=== PATIENT | male | born 1945 | race Caucasian/White ===

== ENCOUNTER 2021-11-26 20:38 | Inpatient (IN) ==
[2021-11-26] MEDS ORDERED: ONDANSETRON INJ 2 MG/ML 2 ML VIAL IV STA (23:25)
[2021-11-26] MEDS ORDERED: HYDROmorphone INJ 0.5 MG/0.5 ML SYR IV STA (23:25)
[2021-11-26] MEDS ORDERED: SODIUM CHLORIDE 0.9% 1000ML 1,000 ML IV ONE (23:25)
[2021-11-26 23:53] LABS: Basophils # (auto) 0.01 K/uL (0-0.2); Basophils % (auto) 0.1 %; Eosinophils # (auto) 0.03 K/uL (0-0.50); Eosinophils % (auto) 0.2 %; Hematocrit (blood only) 29.4 % (40.1-51.0); Hemoglobin 9.6 g/dl (14.0-18.0); Immature Granulocytes # (auto) 0.14 K/uL (0.00-0.02); Immature Granulocytes % (auto) 0.9 %; Lymphocytes # (auto) 0.97 K/uL (1.2-3.4); Lymphocytes % (auto) 6.3 %; Mean Corpuscular Hemoglobin 27.7 pg (25.0-34.0); Mean Corpuscular Hgb Conc 32.7 g/dL (32.0-36.0); Mean Corpuscular Volume 84.7 fL (80.0-100.0); Mean Platelet Volume 10.6 fL (9.4-12.4); Monocytes # (auto) 0.93 K/uL (0.24-0.82); Monocytes % (auto) 6.1 %; Neutrophils # (auto) 13.25 K/uL (1.4-6.5); Neutrophils % (auto) 86.4 %; Platelet Count 352 K/uL (130-400); RDW Coefficient of Variation 15.6 % (11.5-14.5); RDW Standard Deviation 47.1 fL (36.4-46.3); Red Blood Count 3.47 M/uL (4.63-6.08); White Blood Count 15.33 K/ul (4.8-10.8)
[2021-11-27 00:22] LABS: Albumin Globulin Ratio 1.1 (0.9-2); BUN Creatinine Ratio 40.8 (10-20); Bilirubin,Total 0.7 mg/dl (0.2-1.0); Calcium 9.4 mg/dl (8.5-10.1); Creatinine Clr Calc Pharmacy 41.8 ml/min; Est GFR (African American) 81.4 ml/min; Est GFR (Non-African American) 70.2 ml/min; Globulin 2.8 gm/dl (2.5-4.0); Potassium 4.1 mmol/L (3.5-5.1); Total Protein 5.8 gm/dl (6.0-8.3)
--- NOTE | 2021-11-27 00:27 | Emergency Department Note ---
Impression & Plan Intractable abdominal pain, Weakness generalized, Acute dehydration admitted to the [facility] ED Provider Note NAME: BRUNO ANDERSON AGE: 76 SEX: M ARRIVES VIA: Walk-In INFORMANT: Patient and his daughter ED PROVIDER(S): Taya Mccallum DO CHIEF COMPLAINT: Bone pain and abdominal pain PLAN: Disposition: Admit to the [facility] Condition: Good MEDICAL DECISION MAKING: This is a 76-year-old male patient who was recently diagnosed with metastatic cancer who presents to the emergency department with diffuse abdominal pain and bone pain that is not well controlled. The daughter is translating for the patient. She explains that she is trying to arrange for in-home care as the patient will not do well in a nursing facility or assisted living facility. 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 The patient has signs of significant dehydration is receiving IV crystalloid therapy and IV analgesia. I discussed the case with the [facility] [place] Divisionist and they will evaluate for further management and arrange for social service evaluation. Triage Nursing notes reviewed and agree with them. Additional history obtained from the patient's daughter who is translating for him Dehydration, hypoglycemia, hyperglycemia from his ER visit from just a couple nights ago. Vital Signs: reviewed and unremarkable Differential diagnosis: Intractable Pain, electrolyte abnormality, dehydration, hypoglycemia, hy perglycemia ER treatment provided: IV normal saline hydration Diagnostics interpreted by me: ECG: Normal sinus rhythm at a rate of 79 with PACs. There is no signs of ischemia. Cardiac Monitoring: Normal sinus rhythm at a rate of 72 Laboratory studies: See below HPI: 76/M arrives for evaluation of bone pain and abdominal pain. Patient was recently diagnosed with metastatic cancer and prescribed hydrocodone. The daughter explains that he has intractable pain and is unable to get comfortable or sleep. He is currently rating the pain in his abdomen as a 9/10 and pain in both of his hips as severe. Patient also had pain in the top of his left foot in phantom pain in his stump of his right leg. ROS: See above HPI for pertinent positives & negatives. A total of 10 systems reviewed and were otherwise negative. PAST MEDICAL HISTORY:See Below PAST SURGICAL HISTORY:See Below FAMILY HISTORY:See Below SOCIAL HISTORY:See Below HOME MEDICATIONS: See list ALLERGIES: See list VITALS:See Below PHYSICAL EXAMINATION: HEENT: Head - normocephalic and atraumatic Pupils are equal, round, and reactive to light. Extraocular eye muscles are intact, and sclera are anicteric. Nose - moist nasal mucosa without discharge. Mouth - extremely dry buccal mucosa. Oropharynx is nonerythematous and there is no tonsillar exudate or edema noted. Neck: Supple; no JVD or nuchal rigidity Heart: Regular rate and rhythm. There is a normal S1 and S2 with no murmurs, clicks, or gallops appreciated. Lungs: Clear to auscultation bilaterally with no wheezes, rales, or rhonchi. Abdomen: Soft, exquisitely tender to palpation in the right lower quadrant of the abdomen. There is mild guarding noted. There are no palpable pulsatile masses or hepatosplenomegaly. There is no guarding, rigidity, or rebound noted. Extremities: No evidence of cyanosis, clubbing, or edema. There are easily palpable peripheral pulses. Skin: Pale, warm and dry with poor turgor and no rashes. ED COURSE: Times/Reassessments: 2300The patient was evaluated in room B3. Previous electronic medical records were reviewed. An IV lock was initiated and labs were drawn as above. Patient was bolused with normal saline solution. He was given IV Dilaudid and IV Zofran for his pain. I discussed the case with the hospitalist and they will evaluate for further management. Taya Mccallum DO Past Med/Surg History Medical History Asthma Dizziness History of amputation of right lower extremity MDD (major depressive disorder) PAD (peripheral artery disease) Phantom pain Tobacco use disorder Surgical History History of cataract extraction with lens replacement History of cholecystectomy History of dental surgery Hx of AKA (above knee amputation) RIGHT Family History Mother Heart disease Father Cancer colon Asthma Colorectal cancer Grandmother Allergies Other No family history of adverse response to anesthesia No family history of bleeding disorder Denies family history of Hypertension Stroke Social History Smoking Status: Heavy tobacco smoker Tobacco Type: Cigarettes Cigarettes Per Day: 10; Second Hand Exposure: No; Hx Alcohol Use: No Hx Substance Use: No Preferred Language: Ethiopian Communication Ability: Effective Communication Ability Comment: patient can comprehend a few simple icelandic words. Visual Impairment: Diminished Hearing Ability: Normal Clinical Evaluator Required: Yes Beliefs That Will Affect Care: Cultural Cultural Beliefs: According to H&P information, in patient's culture, they dont speak of end of life / metastatic disease. marital status: / Current Living Situation: Alone Current Living Situation Comment: accordning to H&P, patient lives at home with family and they care for him current occupational status: retired Feels Safe at Home: Yes Assistive Devices: Walker and Wheelchair Allergies Allergies Allergy/AdvReac Type Severity Reaction Status Date / Time egg Allergy HARD TO Verified 11/27/21 02:50 BREATH honey Allergy Verified 11/27/21 10:13 nut - unspecified Allergy Verified 11/27/21 10:13 influenza virus vaccine, AdvReac Blurry Verified 10/31/21 12:48 specific vision lactose AdvReac Verified 11/27/21 16:19 Home Meds Home Medications Medication Instructions Recorded Confirmed atorvastatin 10 mg tablet 10 mg PO DAILY 06/13/21 11/27/21 calcium carb,cit ER 600 mg-vit D3 1 tab PO DAILY 06/13/21 11/27/21 12.5 mcg (500 unit) tablet,ext.rel diclofenac sodium 1 % topical gel 2 g topical QID PRN Pain 06/13/21 11/27/21 magnesium oxide 400 mg (241.3 mg 400 mg PO DAILY 06/13/21 11/27/21 magnesium) tablet metoprolol tartrate 50 mg tablet 25 mg PO BID 09/06/21 11/27/21 aspirin 81 mg tablet,delayed 81 mg PO DAILY 10/05/21 11/27/21 release cyanocobalamin (vitamin B-12) 1,000 mcg subcut .COMPLEX 10/05/21 11/27/21 1,000 mcg/mL injection kit amlodipine 5 mg tablet 5 mg PO DAILY 10/31/21 11/27/21 Previous Rx's Medication Instructions Recorded esomeprazole magnesium 40 mg 40 mg PO DAILY #90 caps 07/11/21 capsule,delayed release (Nexium) albuterol sulfate 90 mcg/actuation 2 puff inhalation Q6H PRN 08/20/21 aerosol inhaler Shortness Of Breath Or Wheezing #18 grams fluticasone fur. 100 mcg-umeclid 1 inh inhalation DAILY #60 ea 08/20/21 62.5 mcg-vilant 25 mcg inhalat.powder (Trelegy Ellipta) gabapentin 100 mg capsule 200 mg PO TID #180 caps 10/31/21 ondansetron 4 mg disintegrating 4 mg PO Q8H PRN nausea and 11/20/21 tablet vomiting #30 tabs oxycodone 7.5 mg tablet,oral ONLY 7.5 mg PO Q8H PRN pain #29 ea 11/20/21 (not for feeding tubes) Results & Data (ED) Vital Signs Vital Signs - 24 hr 11/26/21 20:50 11/26/21 22:33 11/26/21 22:30 Temperature 37 C Temperature Source Temporal Artery Scan Pulse Rate 84 80 Pulse Rate [Finger] 93 H Pulse Rate from SpO2 Sensor 80 Respiratory Rate 18 20 26 H Respiratory Effort / Characteristics Non-Labored Spontaneous Non-Labored Spontaneous Respiratory Depth Normal Normal Blood Pressure 102/57 L Blood Pressure [Right Arm] 130/70 Blood Pressure Mean 72 Blood Pressure Mean [Right Arm] 90 Pulse Oximetry 95 93 93 Oxygen Delivery Method Room Air Room Air Sepsis Recent Fever Within 48 Hours No Sepsis New/Unexplained Change in Mental Status No Sepsis Action Taken by Nursing No Action Required 11/26/21 22:40 11/26/21 22:50 11/26/21 23:00 Temperature Temperature Source Pulse Rate 83 82 80 Pulse Rate [Finger] Pulse Rate from SpO2 Sensor 84 82 81 Respiratory Rate 21 27 H 28 H Respiratory Effort / Characteristics Respiratory Depth Blood Pressure Blood Pressure [Right Arm] Blood Pressure Mean Blood Pressure Mean [Right Arm] Pulse Oximetry 95 93 94 Oxygen Delivery Method Sepsis Recent Fever Within 48 Hours Sepsis New/Unexplained Change in Mental Status Sepsis Action Taken by Nursing 11/26/21 23:10 11/26/21 23:38 11/27/21 00:00 Temperature Temperature Source Pulse Rate 79 79 Pulse Rate [Finger] Pulse Rate from SpO2 Sensor 81 Respiratory Rate 25 H 22 Respiratory Effort / Characteristics Respiratory Depth Blood Pressure 138/64 Blood Pressure [Right Arm] Blood Pressure Mean 88 Blood Pressure Mean [Right Arm] Pulse Oximetry 93 95 95 Oxygen Delivery Method Room Air Sepsis Recent Fever Within 48 Hours Sepsis New/Unexplained Change in Mental Status Sepsis Action Taken by Nursing 11/27/21 00:30 11/27/21 01:00 11/27/21 01:30 Temperature Temperature Source Pulse Rate 78 90 83 Pulse Rate [Finger] Pulse Rate from SpO2 Sensor Respiratory Rate 23 25 H 28 H Respiratory Effort / Characteristics Respiratory Depth Blood Pressure 122/82 Blood Pressure [Right Arm] Blood Pressure Mean 95 Blood Pressure Mean [Right Arm] Pulse Oximetry 94 87 L 92 Oxygen Delivery Method Sepsis Recent Fever Within 48 Hours Sepsis New/Unexplained Change in Mental Status Sepsis Action Taken by Nursing 11/27/21 02:00 Temperature Temperature Source Pulse Rate 85 Pulse Rate [Finger] Pulse Rate from SpO2 Sensor 81 Respiratory Rate 22 Respiratory Effort / Characteristics Respiratory Depth Blood Pressure Blood Pressure [Right Arm] Blood Pressure Mean Blood Pressure Mean [Right Arm] Pulse Oximetry 96 Oxygen Delivery Method Sepsis Recent Fever Within 48 Hours Sepsis New/Unexplained Change in Mental Status Sepsis Action Taken by Nursing Laboratory Data Result diagrams: 11/27/21 05:17 11/27/21 05:17 Lab Results 11/26/21 11/26/21 11/26/21 Range/Units 23:30 23:30 23:30 WBC 15.33 H (4.8-10.8) K/ul RBC 3.47 L (4.63-6.08) M/uL Hgb 9.6 L (14.0-18.0) g/dl Hct 29.4 L (40.1-51.0) % MCV 84.7 (80.0-100.0) fL MCH 27.7 (25.0-34.0) pg MCHC 32.7 (32.0-36.0) g/dL RDW Std Deviation 47.1 H (36.4-46.3) fL RDW Coeff of Cee 15.6 H (11.5-14.5) % Plt Count 352 (130-400) K/uL MPV 10.6 (9.4-12.4) fL Immature Gran % (Auto) 0.9 % Neut % (Auto) 86.4 % Lymph % (Auto) 6.3 % [place] % (Auto) 6.1 % Eos % (Auto) 0.2 % Baso % (Auto) 0.1 % Neut # (Auto) 13.25 H (1.4-6.5) K/uL Lymph # (Auto) 0.97 L (1.2-3.4) K/uL [place] # (Auto) 0.93 H (0.24-0.82) K/uL Eos # (Auto) 0.03 (0-0.50) K/uL Baso # (Auto) 0.01 (0-0.2) K/uL Immature Gran # (Auto) 0.14 H (0.00-0.02) K/uL PT (9.0-12.0) Seconds INR (0.9-1.1) APTT (21.0-31.0) Seconds PTT Ratio Sodium 135 L (136-145) mmol/L Potassium 4.1 (3.5-5.1) mmol/L Chloride 98 (98-107) mmol/L Carbon Dioxide 29 (21-32) mmol/L Anion Gap 8 (3-11) BUN 42 H (6-23) mg/dl Creatinine 1.03 (0.6-1.4) mg/dl Est Cr Clr Drug Dosing 41.8 ml/min Est GFR ( Amer) 81.4 ml/min Est GFR (Non-Af Amer) 70.2 ml/min BUN/Creatinine Ratio 40.8 H (10-20) Glucose 119 H (70-99(Fasting)) mg/dl Calcium 9.4 (8.5-10.1) mg/dl Total Bilirubin 0.7 (0.2-1.0) mg/dl AST 39 (13-39) U/L ALT 39 (7-52) U/L Alkaline Phosphatase 735 H (34-104) U/L Total Protein 5.8 L (6.0-8.3) gm/dl Albumin 3.0 L (3.4-5.0) gm/dl Globulin 2.8 (2.5-4.0) gm/dl Albumin/Globulin Ratio 1.1 (0.9-2) Procalcitonin (0-0.5) ng/ml TSH 1.829 (0.300-4.500) uIu/ml Urine Color Urine Appearance (Clear) Urine pH (4.5-7.5) Ur Specific [place] (1.000-1.030) Urine Protein (Negative) Urine Glucose (UA) (Negative) Urine Ketones (Negative) Urine Blood (Negative) Urine Nitrite (Negative) Urine Bilirubin (Negative) Urine Urobilinogen (Negative) Ur Leukocyte Esterase (Negative) SARS-CoV-2, RNA, NAAT (NEGATIVE) 11/26/21 11/26/21 11/27/21 Range/Units 23:30 23:30 00:25 WBC (4.8-10.8) K/ul RBC (4.63-6.08) M/uL Hgb (14.0-18.0) g/dl Hct (40.1-51.0) % MCV (80.0-100.0) fL MCH (25.0-34.0) pg MCHC (32.0-36.0) g/dL RDW Std Deviation (36.4-46.3) fL RDW Coeff of Cee (11.5-14.5) % Plt Count (130-400) K/uL MPV (9.4-12.4) fL Immature Gran % (Auto) % Neut % (Auto) % Lymph % (Auto) % [place] % (Auto) % Eos % (Auto) % Baso % (Auto) % Neut # (Auto) (1.4-6.5) K/uL Lymph # (Auto) (1.2-3.4) K/uL [place] # (Auto) (0.24-0.82) K/uL Eos # (Auto) (0-0.50) K/uL Baso # (Auto) (0-0.2) K/uL Immature Gran # (Auto) (0.00-0.02) K/uL PT 12.1 H (9.0-12.0) Seconds INR 1.1 (0.9-1.1) APTT 29.5 (21.0-31.0) Seconds PTT Ratio 1.1 Sodium (136-145) mmol/L Potassium (3.5-5.1) mmol/L Chloride (98-107) mmol/L Carbon Dioxide (21-32) mmol/L Anion Gap (3-11) BUN (6-23) mg/dl Creatinine (0.6-1.4) mg/dl Est Cr Clr Drug Dosing ml/min Est GFR ( Amer) ml/min Est GFR (Non-Af Amer) ml/min BUN/Creatinine Ratio (10-20) Glucose (70-99(Fasting)) mg/dl Calcium (8.5-10.1) mg/dl Total Bilirubin (0.2-1.0) mg/dl AST (13-39) U/L ALT (7-52) U/L Alkaline Phosphatase (34-104) U/L Total Protein (6.0-8.3) gm/dl Albumin (3.4-5.0) gm/dl Globulin (2.5-4.0) gm/dl Albumin/Globulin Ratio (0.9-2) Procalcitonin 0.85 H (0-0.5) ng/ml TSH (0.300-4.500) uIu/ml Urine Color Urine Appearance (Clear) Urine pH (4.5-7.5) Ur Specific [place] (1.000-1.030) Urine Protein (Negative) Urine Glucose (UA) (Negative) Urine Ketones (Negative) Urine Blood (Negative) Urine Nitrite (Negative) Urine Bilirubin (Negative) Urine Urobilinogen (Negative) Ur Leukocyte Esterase (Negative) SARS-CoV-2, RNA, NAAT NEGATIVE (NEGATIVE) 11/27/21 Range/Units 01:01 WBC (4.8-10.8) K/ul RBC (4.63-6.08) M/uL Hgb (14.0-18.0) g/dl Hct (40.1-51.0) % MCV (80.0-100.0) fL MCH (25.0-34.0) pg MCHC (32.0-36.0) g/dL RDW Std Deviation (36.4-46.3) fL RDW Coeff of Cee (11.5-14.5) % Plt Count (130-400) K/uL MPV (9.4-12.4) fL Immature Gran % (Auto) % Neut % (Auto) % Lymph % (Auto) % [place] % (Auto) % Eos % (Auto) % Baso % (Auto) % Neut # (Auto) (1.4-6.5) K/uL Lymph # (Auto) (1.2-3.4) K/uL [place] # (Auto) (0.24-0.82) K/uL Eos # (Auto) (0-0.50) K/uL Baso # (Auto) (0-0.2) K/uL Immature Gran # (Auto) (0.00-0.02) K/uL PT (9.0-12.0) Seconds INR (0.9-1.1) APTT (21.0-31.0) Seconds PTT Ratio Sodium (136-145) mmol/L Potassium (3.5-5.1) mmol/L Chloride (98-107) mmol/L Carbon Dioxide (21-32) mmol/L Anion Gap (3-11) BUN (6-23) mg/dl Creatinine (0.6-1.4) mg/dl Est Cr Clr Drug Dosing ml/min Est GFR ( Amer) ml/min Est GFR (Non-Af Amer) ml/min BUN/Creatinine Ratio (10-20) Glucose (70-99(Fasting)) mg/dl Calcium (8.5-10.1) mg/dl Total Bilirubin (0.2-1.0) mg/dl AST (13-39) U/L ALT (7-52) U/L Alkaline Phosphatase (34-104) U/L Total Protein (6.0-8.3) gm/dl Albumin (3.4-5.0) gm/dl Globulin (2.5-4.0) gm/dl Albumin/Globulin Ratio (0.9-2) Procalcitonin (0-0.5) ng/ml TSH (0.300-4.500) uIu/ml Urine Color Yellow Urine Appearance Clear (Clear) Urine pH 5.5 (4.5-7.5) Ur Specific [place] 1.022 (1.000-1.030) Urine Protein Negative (Negative) Urine Glucose (UA) Negative (Negative) Urine Ketones Negative (Negative) Urine Blood Negative (Negative) Urine Nitrite Negative (Negative) Urine Bilirubin Negative (Negative) Urine Urobilinogen Negative (Negative) Ur Leukocyte Esterase Negative (Negative) SARS-CoV-2, RNA, NAAT (NEGATIVE) Administered Medications Amlodipine Besylate (Amlodipine Besylate 5 Mg Tab) 5 mg PO DAILY KEYLA Stop: 12/27/21 08:59 Last Admin: 11/27/21 10:01 Dose: 5 mg Documented By: DARWIN Aspirin (Aspirin 81 Mg Ectab) 81 mg PO DAILY KEYLA Stop: 12/27/21 08:59 Last Admin: 11/27/21 10:00 Dose: 81 mg Documented By: DARWIN Atorvastatin Calcium (Atorvastatin 10 Mg Tab) 10 mg PO DAILY [facility] Stop: 12/27/21 08:59 Last Admin: 11/27/21 10:03 Dose: 10 mg Documented By: DARWIN Diclofenac Sodium (Diclofenac Sod 1% Gel 100 Gm Tube) 2 gm EXT QID KEYLA; Protocol Stop: 12/27/21 08:59 Last Admin: 11/27/21 20:38 Dose: 2 gm Documented By: Admin: 11/27/21 19:21 Dose: Not Given Documented By: Admin: 11/27/21 13:48 Dose: Not Given Documented By: Admin: 11/27/21 12:35 Dose: 2 gm Documented By: DARWIN Fluticasone Furoate (Fluticasone Furoate 100mcg 14 Puffs/Inhaler) 1 puffs INH DAILY KEYLA Stop: 12/27/21 08:59 Last Admin: 11/27/21 10:05 Dose: 1 puffs Documented By: DARWIN Gabapentin (Gabapentin 100 Mg Cap) 200 mg PO TID [facility] Stop: 12/27/21 08:59 Last Admin: 11/27/21 20:39 Dose: 200 mg Documented By: Admin: 11/27/21 13:45 Dose: 200 mg Documented By: Admin: 11/27/21 10:03 Dose: 200 mg Documented By: DARWIN Hydromorphone HCl (Hydromorphone Inj 0.5 Mg/0.5 Ml Syr) 0.25 mg IV Q4H PRN PRN Reason: Pain Stop: 12/11/21 04:15 Last Admin: 11/27/21 12:34 Dose: 0.25 mg Documented By: DARWIN Ketorolac Tromethamine (Ketorolac Tromethamine 10 Mg Tablet) 10 mg PO Q8H [facility] Stop: 12/02/21 05:59 Last Admin: 11/27/21 13:49 Dose: 10 mg Documented By: Admin: 11/27/21 06:00 Dose: 10 mg Documented By: LAVONNE Metoprolol Tartrate (Metoprolol Tartrate 25 Mg Tab) 25 mg PO BID [facility] Stop: 12/27/21 08:59 Last Admin: 11/27/21 20:40 Dose: 25 mg Documented By: Admin: 11/27/21 10:01 Dose: 25 mg Documented By: DARWIN Oxycodone HCl (Oxycodone Hcl Soln 5 Mg/5 Ml Udc) 7.5 mg PO Q8H KEYLA Stop: 12/11/21 05:59 Last Admin: 11/27/21 17:49 Dose: 7.5 mg Documented By: Admin: 11/27/21 05:08 Dose: 7.5 mg Documented By: LAVONNE Pantoprazole Sodium (Pantoprazole 40 Mg Tab) 40 mg PO DAILY KEYLA Stop: 12/27/21 08:59 Last Admin: 11/27/21 10:01 Dose: 40 mg Documented By: DARWIN Umeclidinium/Vilanterol (Umeclidinium/Vilanterol 62.5/25mcg 7 Puffs/Inhaler) 1 puffs INH DAILY KEYLA Stop: 12/27/21 08:59 Last Admin: 11/27/21 10:08 Dose: 1 puffs Documented By: DARWIN Discontinued Medications Hydromorphone HCl (Hydromorphone Inj 0.5 Mg/0.5 Ml Syr) 0.25 mg IV NOW STA Stop: 11/26/21 23:26 Last Admin: 11/26/21 23:36 Dose: 0.25 mg Documented By: BONNIE Hydromorphone HCl (Hydromorphone Inj 0.5 Mg/0.5 Ml Syr) 0.25 mg IV NOW STA Stop: 11/27/21 02:35 Last Admin: 11/27/21 02:55 Dose: 0.25 mg Documented By: BONNIE Sodium Chloride (Nss 1000ml) 1,000 mls @ 999 mls/hr IV .Q1H1M ONE Stop: 11/27/21 00:25 Last Infusion: 11/27/21 00:36 Dose: 0 mls/hr Documented By: Admin: 11/26/21 23:36 Dose: 999 mls/hr Documented By: BONNIE Sodium Chloride (Nss 1000ml) 1,000 mls @ 80 mls/hr IV .[id number] KEYLA Stop: 11/27/21 17:59 Last Infusion: 11/27/21 19:15 Dose: 0 mls/hr Documented By: Admin: 11/27/21 05:45 Dose: 80 mls/hr Documented By: LAVONNE Ondansetron HCl (Ondansetron Inj 2 Mg/Ml 2 Ml Vial) 4 mg IV NOW STA Stop: 11/26/21 23:26 Last Admin: 11/26/21 23:35 Dose: 4 mg Documented By: BONNIE Discharge Plan Visit Data Chief Complaint: Abdominal Pain Stated Complaint: R ABDOM PAIN, BACK PAIN, SOB, MEDS NOT HELPING ED Provider: Taya Mccallum Discharge Problem: Intractable abdominal pain, Weakness generalized, Acute dehydration Patient Disposition: Admitted As Inpatient Discharge Instructions Interventions: ED Discharge Assessment Last Done: 11/27/21 03:25
--- NOTE | 2021-11-27 01:03 | History & Physical Report ---
Date of Service November 27, 2021 Assessment & Plan (1) Intractable abdominal pain: Plan: This is a 76-year-old gentleman with a history of COPD, diabetes, peripheral arterial disease s/p AKA on the RIGHT complicated by phantom pain, left renal mass, metastatic disease who presented to [facility] for evaluation of abdominal and bone-related pain likely from metastatic cancer of unknown primary (though pulmonary highly suspected). He requires hospitalization for management of his pain and clarification of his/his family's goals of care. Intractable Pain - Suspect primarily related to metastatic disease in the liver and ribs -- this is primarily where he is reporting his pain and is reproducible on exam (notable hepatomegaly) - Current home regimen: oxycodone 7.5mg q8h PRN (though daughter reports he has trouble taking this because of his dysphagia) - Will trial the following regimen: -- Oxycodone syrup 7.5mg q8h KEYLA (patient recently switched to this by PCP - given dysphagia unclear how much he actually got down/saw benefit from) -- Toradol 10mg q8h KEYLA (optimally not to be continued over 5 days) -- Dilaudid 0.25mg IV for breakthrough pain -- Continue home gabapentin for neuropathic pain (phantom limb) ; likely could increase if needed -- Hold on scheduling APAP given unclear burden of hepatic disease at this time -- May wish to consider initiation of muscle relaxants or Valium if tolerated / not oversedated by above medications - Given complexity of his numerous types of pain, may wish to consider pain management consult if no significant improvement - Continue PPI given scheduled NSAID - Palliative care consulted, as below (2) Metastatic disease: Plan: Metastatic Disease - In the context of significant heavy tobacco use, recent weight loss, worsening pain, anorexia over the past several months - ED visit 11/20: CT-A/P demonstrated interval development of multiple hypodense lesions within the liver consistent with metastatic disease, possible early metastatic changes within the sixth and seventh ribs, 6.3 lobular hypodense lesion in the upper pole of the kidney thought to be a cyst; CTA of the chest demonstrated increase in size of pulmonary nodule within the left upper lobe, alongside multiple irregular pulmonary nodules. - New diagnosis as of 11/20 -- primary unknown, but concern for pulmonary source given numerous nodules and extensive smoking history - Given cultural considerations per patient's daughter and newspaper distributor supervisor, patient was not made aware of cancer diagnosis and metastases upon discovery (see HPI). However, daughter reported telling her father (patient) the details of his illness following my initial visit with them -- I was not present in the room while this happened. - Pain management as above - Unsure if patient would be eligible for any salvage chemotherapy options -- will depend on [id number] and risks-benefits of possible adverse effects of these RX. Not interested in radiation RX --> May wish to consider oncology consultation if patient does wish to pursue this route more; would, however, likely require biopsy - Palliative consultation as above Recommend utilizing professional newspaper distributor supervisor to clarify knowledge and understanding of the current situation, as well as goals. (3) COPD with emphysema: Plan: COPD - Secondary to prolonged and extensive tobacco use - Continue home inhalers (4) PAD (peripheral artery disease): Plan: PAD - Extensive. Status-post AKA of the RLE - Continue ASA, atorvastatin (5) Diabetes: Plan: Prediabetes / ?History of Diabetes - Review of records reveals prediabetes, A1c 6.2% in 06/2021, not on any meds - Hold on initiating ACHS glucose checks given patient's recent anorexia -- can consider starting at any time (6) Dysphagia: Plan: Dysphagia - Daughter reporting patienit has had significant difficulties with swallowing lately -- feels like food/pills are getting stuck; not as much with liquids - Speech consult initially to assess for oropharyngeal dysfunction; may require further studies / GI consult for EGD pending goals of care - Diet will be easy to chew initially - Boost shakes are ordered (7) Hepatomegaly: Plan: Hepatomegaly - Appreciated on exam, +TTP -- likely secondary to metastatic disease - CT-A/P: "Interval development of multiple hypodense lesions seen throughout the liver with the largest in the left hepatic lobe measuring 3.7 cm. This is consistent with metastatic disease." --> Comparison is CT-Chest 08/29 - Significant elevation in ALP with otherwise "normal" LFTs -- ALP may be secondary to osseous mets - Add PT/INR for further clarification of synthetic function ; previous elevations in PTT noted - Will avoid hepatotoxic medications initially (8) Goals of care, counseling/discussion: Plan: Goals of Care Discussion - Nearly 1 hour was spent at time of admission discussing patient and daughter's understanding of current disease state and [id number] going forward (see H&P HPI) - In brief: evidence of metastatic disease found on imaging 11/20/21 during ER visit -- information was given to daughter to translate to patient. This admission, however, daughter does tell me that father does not know about the cancer/burden. --> She did tell me that in their [place] culture, some people prefer not to be told about their severe illness and have it managed by others --> Daughter also told me she did end up sharing the results with him while I was out of the room; though I was not present to gauge his understanding - Patient's daughter, ALLIE, would like to pursue measures focused on promoting comfort rather than aggressive treatment. She did say upon my arrival she wanted hospice for him -- spent significant time explaining the role of hospice in patient care and what it represents in terms of someone's prognosis. However, was unable to formally hold a conversation with him to gauge his understanding and desires; this has been complicated by language barrier. - Recommend utilizing professional newspaper distributor supervisor to clarify patient's goals in AM - Palliative care consulted and appreciated - Daughter confirmed that patient is DNR/DNI and that they have discussed this - Case management consult as above (9) Weakness: Plan: Weakness - Significant weakness, anorexia, and fatigue reported by daughter over the last several weeks, in conjunction with pain - Primarily suspect that this is due to his metastatic burden and pain - Work-up otherwise: - Though no clear source of infection on my exam, leukocytosis is noted in this regard - Await BCX, add procalcitonin - Pending goals of care, may wish to consider PT/OT - Case management consulted for complex needs (10) Leukocytosis: Plan: Leukocytosis - WBC 15 on arrival predominantly with left shift -- neutrophilia but also monocytosis with relative lymphopenia - Cancer related +/- stress response? Viral infection? Bacteremia? Urine studies clean. - Await BCX, procal - Given reason for presentation being pain and aid with social sciences lecturer, weakness being secondary, opt to trend for now and await other studies prior to ABX initiation. Low threshold to initiate broad-spectrum if suspected. Plan Code: DNR/DNI Diet: Regular, easy to chew PPX: SCDs for now Dispo: MS History of Present Illness Primary Care Provider: Elia Blount MD This is a 76-year-old gentleman with a history of COPD, diabetes, peripheral arterial disease s/p AKA on the RIGHT complicated by phantom pain, left renal mass, metastatic disease who presented to [facility] for evaluation of abdominal and bone pain. He is accompanied by his daughter, who is also his newspaper distributor supervisor and POA. He speaks Fijian and has limited Omani proficiency. Daughter provides the majority of the history. She says over the last several weeks, he has had increasingly disabling pain throughout his body. When asked directly, he locates it in his neck, back, chest wall, belly (right upper quadrant), left lower ankle, and at his previous right lower extremity amputation site. The overall pain has become disabling enough where he is unable to sleep, it is interrupting his eating patterns, and overall quality of life. His daughter notes that none of this pain is acute/newrather worsening chronic. She also reports that he has been having increasing difficulty swallowing and that things will sometimes get stuck. Of note, patient recently was in the ER on 11/20 - he was reported to have not been taking any of his medications x 1 week and was also having increased back pain and phantom leg pain, plus nausea and slurred speech and anorexia; he was reportedly taking more of his Mertzon than regular, too. He had full body imaging at this time, whichon abdominal pelvis CTAdemonstrated interval development of multiple hypodense lesions within the liver consistent with metastatic disease, possible early metastatic changes within the sixth and seventh ribs, 6.3 lobular hypodense lesion in the upper pole of the kidney thought to be a cyst; CTA of the chest demonstrated increase in size of pulmonary nodule within the left upper lobe, alongside multiple irregular pulmonary nodules. His daughter explained to me that in their [place] culture, it is generally not tradition to share the information of a debilitating disease (such as metastatic cancer) to the person suffering. In this case, while the patient is aware that his overall physical status is deteriorating, discussion revealed that he had not formally been informed of the extent of his metastatic cancer (or that he had cancer in general). She does state that he repeatedly says that he does not want to be in pain and does not want to suffer. She reports that he does have capacity and understands his overall health. She does report that they have had discussions in the past and that he wants to be a DNR/DNI in a situation that ultimately results in his expiration. However, they have not formally had discussions about how to approach the current situation with his metastatic disease and worsening overall healthshe wishes to arrange hospice on discharge, but patient has not formally been introduced to this idea. She thinks this is what he would want. Unfortunately, patient's (daughter's mother) recently from cancer approximately 1 year ago; she reports that he was in denial up until shortly before her passing, and that he definitely does not want to go through something similar. She hopes that through this hospitalization, they get the resources they need to be at home and have him free of pain. Patient is a past [place] of [place] and staying at institutions like hospitals, SNFs, etc. trigger PTSD-related moods/thoughts and are very distress ful to him. Medications reviewed and include albuterol, amlodipine, aspirin, atorvastatin, calcium, vitamin B12, Voltaren gel, esomeprazole, Trelegy, gabapentin, Mertzon, magnesium oxide, metoprolol tartrate, ondansetron, oxycodone. He has an extensive smoking history, beginning at age 8 and smoking over 1 pack/day. In the ED, patient was found to be afebrile with blood pressure 102/57 but other ford normal vital signs. Admission labs demonstrates leukocytosis to 15.3 with a left shift and with monocytosis/lymphopenia, normocytic anemia 9.6 (compared to 10.3 on 11/20 and 13 on 06/18). Chemistries revealed mild hyponatremia at 135, BUN 42/creatinine 1.03, ALP 735 (from 586 on 11/20), normal TSH. He received Dilaudid and Zofran Allergies Allergy/AdvReac Type Severity Reaction Status Date / Time egg Allergy HARD TO Verified 11/27/21 02:50 BREATH honey Allergy Verified 11/27/21 10:13 nut - unspecified Allergy Verified 11/27/21 10:13 influenza virus vaccine, AdvReac Blurry Verified 10/31/21 12:48 specific vision lactose AdvReac Verified 11/27/21 16:19 Home Medications Medication Instructions Recorded Confirmed Type atorvastatin 10 mg tablet 10 mg PO DAILY 06/13/21 11/27/21 History calcium carb,cit ER 600 mg-vit D3 1 tab PO DAILY 06/13/21 11/27/21 History 12.5 mcg (500 unit) tablet,ext.rel diclofenac sodium 1 % topical gel 2 g topical QID PRN Pain 06/13/21 11/27/21 History magnesium oxide 400 mg (241.3 mg 400 mg PO DAILY 06/13/21 11/27/21 History magnesium) tablet esomeprazole magnesium 40 mg 40 mg PO DAILY #90 caps 07/11/21 11/27/21 Rx capsule,delayed release (Nexium) albuterol sulfate 90 mcg/actuation 2 puff inhalation Q6H PRN 08/20/21 11/27/21 Rx aerosol inhaler Shortness Of Breath Or Wheezing #18 grams fluticasone fur. 100 mcg-umeclid 1 inh inhalation DAILY #60 ea 08/20/21 11/27/21 Rx 62.5 mcg-vilant 25 mcg inhalat.powder (Trelegy Ellipta) metoprolol tartrate 50 mg tablet 25 mg PO BID 09/06/21 11/27/21 History aspirin 81 mg tablet,delayed 81 mg PO DAILY 10/05/21 11/27/21 History release cyanocobalamin (vitamin B-12) 1,000 mcg subcut .COMPLEX 10/05/21 11/27/21 History 1,000 mcg/mL injection kit amlodipine 5 mg tablet 5 mg PO DAILY 10/31/21 11/27/21 History gabapentin 100 mg capsule 200 mg PO TID #180 caps 10/31/21 11/27/21 Rx ondansetron 4 mg disintegrating 4 mg PO Q8H PRN nausea and 11/20/21 11/27/21 Rx tablet vomiting #30 tabs oxycodone 7.5 mg tablet,oral ONLY 7.5 mg PO Q8H PRN pain #29 ea 11/20/21 11/27/21 Rx (not for feeding tubes) Past Med/Surg History Medical History Asthma Dizziness History of amputation of right lower extremity MDD (major depressive disorder) PAD (peripheral artery disease) Phantom pain Tobacco use disorder Surgical History History of cataract extraction with lens replacement History of cholecystectomy History of dental surgery Hx of AKA (above knee amputation) RIGHT Family History Mother Heart disease Father Cancer colon Asthma Colorectal cancer Grandmother Allergies Other No family history of adverse response to anesthesia No family history of bleeding disorder Denies family history of Hypertension Stroke Social History Smoking Status: Heavy tobacco smoker Tobacco Type: Cigarettes Cigarettes Per Day: 10; Second Hand Exposure: No; Hx Alcohol Use: No Hx Substance Use: No Preferred Language: Fijian Communication Ability: Effective Communication Ability Comment: patient can comprehend a few simple beninese words. Visual Impairment: Diminished Hearing Ability: Normal City Assessor Required: Yes Beliefs That Will Affect Care: Cultural Cultural Beliefs: According to H&P information, in patient's culture, they dont speak of end of life / metastatic disease. marital status: / Current Living Situation: Alone Current Living Situation Comment: accordning to H&P, patient lives at home with family and they care for him current occupational status: retired Feels Safe at Home: Yes Assistive Devices: Walker and Wheelchair Review of Systems Review of Systems: as per HPI Physical Exam Physical Exam: General: 76-year old male who is alert, oriented; appears cachectic and chronically ill HEENT: NCAT. - Eyes - Sclera are white, anicteric, and without injection. - Mouth - dry mucous membranes - Neck - supple, no appreciable JVD Cardiac: Normal rate and regular rhythm; S1 and S2 present with no murmurs, rubs, or gallops. Pulmonary: Good respiratory effort with symmetric expansion of the chest. No use of accessory muscles. Lungs were clear to auscultation bilaterally with no crackles or wheezes. Abdominal: Normoactive bowel sounds. Abdomen was soft, nondistended; appreciable hepatomegaly associated with +TTP. Extremities: Upper and lower extremities are warm and well perfused. R-sided AKA stump appreciated - exquisitely tender to palpation (patient asked that I do not uncover or examine). No peripheral edema in the lower extremities bilaterally. LLE strength 5/5. Psych: Well-developed, well-nourished, appropriately dressed for occasion. Behavior is cooperative and appropriate. Affect is WNL. Insight is appropriate. Results & Data Results & Data ([facility]) Vital Signs (Past 12 Hours) Vital Signs Temp Pulse Pulse Resp BP BP Pulse Ox 11/27/21 00:00 79 22 138/64 95 11/26/21 23:38 95 11/26/21 23:10 79 25 H 93 11/26/21 23:00 80 28 H 94 11/26/21 22:50 82 27 H 93 11/26/21 22:40 83 21 95 11/26/21 22:30 80 26 H 93 11/26/21 22:33 93 H 20 130/70 93 11/26/21 20:50 37 C 84 18 102/57 L 95 O2 Del Method 11/27/21 00:00 11/26/21 23:38 Room Air 11/26/21 23:10 11/26/21 23:00 11/26/21 22:50 11/26/21 22:40 11/26/21 22:30 11/26/21 22:33 Room Air 11/26/21 20:50 Room Air Supervising Physician Co-Signing Physician Notes Attending addendum: I have physically seen this patient, have supervised the medical residents activities, and agree with the H&P unless as otherwise noted. Assessment and Plan: Intractable abdominal pain/metastatic disease to liver and ribs Oxycodone 7.5 mg p.o. every 8 hours as needed moderate pain used at home Placed on oxycodone syrup 7.5 mg p.o. every 8 hours as needed, to see if better tolerated with dysphagia Additional options Roxanol liquid if uncontrolled Toradol 10 mg IV every 8 hours as needed for mild pain Dilaudid 0.25 mg IV every 3 hours as needed breakthrough pain Continue gabapentin for phantom limb pain Consult palliative care Tobacco abuse disorder- Cessation counseling COPD- Continue usual home inhalers PAD/right lower extremity AKA- Continue aspirin and atorvastatin Tobacco cessation counseling Diabetes mellitus-most recent A1c was 6.2 on 06/22 Agree with holding on Accu-Cheks for now due to decreased oral intake and unlikely issues with high blood glucose, if concerns regarding low blood glucose, will institute Accu-Cheks Remaining orders and notations as noted Resident Activity Tracking Resident Involvement: Resident Care Provided Care Provided: Adult [facility] Medicine
[2021-11-27 01:22] LABS: Bilirubin Urine Negative (Negative); Blood Urine Negative (Negative); Color Urine Yellow; Glucose Urine UA Negative (Negative); Ketones Urine Negative (Negative); Leukocyte Esterase Urine Negative (Negative); Nitrite Urine Negative (Negative); Protein Urine Negative (Negative); Specific Gravity Urine 1.022 (1.000-1.030); Urobilinogen Urine Negative (Negative); pH Urine 5.5 (4.5-7.5)
[2021-11-27 01:25] LABS: Appearance Urine Clear (Clear)
[2021-11-27] MEDS ORDERED: ACETAMINOPHEN 325 MG TAB PO PRN (02:10)
[2021-11-27] MEDS ORDERED: HYDROmorphone INJ 0.5 MG/0.5 ML SYR IV STA (02:34)
[2021-11-27 03:36] LABS: INR 1.1 (0.9-1.1); Partial Thromboplastin Ratio 1.1; Partial Thromboplastin Time 29.5 Seconds (21.0-31.0); Prothrombin Time 12.1 Seconds (9.0-12.0)
[2021-11-27] MEDS ORDERED: ALBUTEROL HFA 8 GM INHALER INH PRN (04:16)
[2021-11-27] MEDS: oxyCODONE HCL SOLN 5 MG/5 ML UDC PO SCH ×3 (05:08→22:36)
[2021-11-27] MEDS ORDERED: SODIUM CHLORIDE 0.9% 1000ML 1,000 ML IV SCH (05:30)
[2021-11-27 06:00] LABS: Basophils # (auto) 0.02 K/uL (0-0.2); Basophils % (auto) 0.1 %; Eosinophils # (auto) 0.06 K/uL (0-0.50); Eosinophils % (auto) 0.4 %; Hematocrit (blood only) 32.4 % (40.1-51.0); Hemoglobin 10.6 g/dl (14.0-18.0); Immature Granulocytes % (auto) 0.7 %; Lymphocytes # (auto) 1.01 K/uL (1.2-3.4); Lymphocytes % (auto) 7.4 %; Mean Corpuscular Hemoglobin 27.6 pg (25.0-34.0); Mean Corpuscular Hgb Conc 32.7 g/dL (32.0-36.0); Mean Corpuscular Volume 84.4 fL (80.0-100.0); Mean Platelet Volume 10.7 fL (9.4-12.4); Monocytes # (auto) 0.85 K/uL (0.24-0.82); Monocytes % (auto) 6.2 %; Neutrophils % (auto) 85.2 %; Platelet Count 342 K/uL (130-400); RDW Coefficient of Variation 15.5 % (11.5-14.5); RDW Standard Deviation 46.7 fL (36.4-46.3); Red Blood Count 3.84 M/uL (4.63-6.08); White Blood Count 13.64 K/ul (4.8-10.8)
[2021-11-27] MEDS: KETOROLAC TROMETHAMINE 10 MG TABLET PO SCH ×3 (06:00→22:36)
[2021-11-27 06:15] LABS: Albumin Globulin Ratio 1.1 (0.9-2); Albumin Level 3.2 gm/dl (3.4-5.0); BUN Creatinine Ratio 38.6 (10-20); Bilirubin,Total 0.8 mg/dl (0.2-1.0); Calcium 9.3 mg/dl (8.5-10.1); Est GFR (African American) 96.7 ml/min; Est GFR (Non-African American) 83.4 ml/min; Globulin 2.9 gm/dl (2.5-4.0); Total Protein 6.1 gm/dl (6.0-8.3)
--- NOTE | 2021-11-27 07:30 | XRay Report ---
XR chest 1V portable CLINICAL HISTORY: Weakness. Metastatic disease. COMPARISON STUDY: Chest radiograph and chest CT November 20, 2021. FINDINGS: Emphysema is noted. No pneumothorax or pleural effusion is noted. No consolidation to sugge st pneumonia. Suspicious pulmonary nodules are better depicted on chest CT of November 20, 2021. Car diac size is normal. There is no evidence for pulmonary edema. Mediastinal contours are within normal limits. IMPRESSION: 1. Emphysema. 2. No consolidation to suggest pneumonia. 3. Suspicious pulmonary nodules are better depicted on chest CT November 20, 2021. ACT 112: Negative or not required by law. Electronically signed by: Clint Lugo M.D. 11/27/2021 7:28 AM
--- NOTE | 2021-11-27 07:38 | Hospitalist Progress Note ---
Date of Service November 27, 2021 Assessment & Plan (1) Intractable abdominal pain: Plan: This is a 76-year-old gentleman with a history of COPD, diabetes, peripheral arterial disease s/p AKA on the RIGHT complicated by phantom pain, left renal mass, metastatic disease who presented to [facility] for evaluation of abdominal and bone-related pain likely from metastatic cancer of unknown primary (though pulmonary highly suspected). He requires hospitalization for management of his pain and clarification of his/his family's goals of care. Intractable Pain - Suspect primarily related to metastatic disease in the liver and ribs -- this is primarily where he is reporting his pain and is reproducible on exam (notable hepatomegaly) - Current home regimen: oxycodone 7.5mg q8h PRN (though daughter reports he has trouble taking this because of his dysphagia) + Would consider trial of basal pain medication via Fentanyl transdermal patch - Current medications trialed include: -- Oxycodone syrup 7.5mg q8h KEYLA (patient recently switched to this by PCP - given dysphagia unclear how much he actually got down/saw benefit from) -- Toradol 10mg q8h KEYLA (optimally not to be continued over 5 days) -- Dilaudid 0.25mg IV for breakthrough pain -- Continue home gabapentin for neuropathic pain (phantom limb) ; likely could increase if needed -- Hold on scheduling APAP given unclear burden of hepatic disease at this t jorden -- May wish to consider initiation of muscle relaxants or Valium if tolerated / not oversedated by above medications + Per palliative care recommendation, could start dexamethasone to help decrease inflammation from liver mets/contributing to pain - Continue PPI given scheduled NSAID Metastatic Disease - In the context of significant heavy tobacco use, recent weight loss, worsening pain, anorexia over the past several months - ED visit 11/20: CT-A/P demonstrated interval development of multiple hypodense lesions within the liver consistent with metastatic disease, possible early metastatic changes within the sixth and seventh ribs, 6.3 lobular hypodense lesion in the upper pole of the kidney thought to be a cyst; CTA of the chest demonstrated increase in size of pulmonary nodule within the left upper lobe, alongside multiple irregular pulmonary nodules. - New diagnosis as of 11/20 -- primary unknown, but concern for pulmonary source given numerous nodules and extensive smoking history - Pain management as above - Unsure if patient would be eligible for any salvage chemotherapy options -- will depend on [id number] and risks-benefits of possible adverse effects of these RX. Not interested in radiation RX COPD - Secondary to prolonged and extensive tobacco use - Continue home inhalers PAD - Extensive. Status-post AKA of the RLE - Continue ASA, atorvastatin Prediabetes / ?History of Diabetes - Review of records reveals prediabetes, A1c 6.2% in 06/2021, not on any meds - Hold on initiating ACHS glucose checks given patient's recent anorexia -- can consider starting at any time Dysphagia - Daughter reporting patient has had significant difficulties with swallowing lately -- feels like food/pills are getting stuck; not as much with liquids - Speech consult completed: recommending [id number] diet with thin liquids, aspiration and GERD precautions, meds in carrier. No direct treatment at this time. - Boost shakes are ordered Hepatomegaly - Appreciated on exam, +TTP -- likely secondary to metastatic disease - CT-A/P: "Interval development of multiple hypodense lesions seen throughout the liver with the largest in the left hepatic lobe measuring 3.7 cm. This is consistent with metastatic disease." --> Comparison is CT-Chest 08/29 - Significant elevation in ALP with otherwise "normal" LFTs -- ALP may be secondary to osseous mets - PT: 12.1, INR: 1.1, aPTT: 29.5 - Will avoid hepatotoxic medications initially Goals of Care Discussion +Daughter states that in [place] culture, some people prefer not to be told about their severe illness and have it managed by others +Daughter also told me she did end up sharing the results with him - Patient's daughter, ALLIE, would like to pursue measures focused on promoting comfort rather than aggressive treatment. - Daughter confirmed that patient is DNR/DNI and that they have discussed this - Case management: see consult note for full details. In summary, patient currently lives alone and daughter would prefer he stay at home with hospice, but referral placed to SNF to possible short stay to increase strength. - Palliative Care: see consult note for full details. In summary, patient's daughter has discussed with him the concern that he has extensive cancer and when it was discussed whether he would like full treatment vs. management of his symptoms, he preferred the latter. Weakness - Significant weakness, anorexia, and fatigue reported by daughter over the last several weeks, in conjunction with pain - Primarily suspect that this is due to his metastatic burden and pain - Work-up otherwise: - Though no clear source of infection on exam, leukocytosis is noted in this regard - Blood culture pending, procal 0.85 - Pending goals of care, may wish to consider PT/OT Leukocytosis - WBC 15 on arrival (today 13.6) predominantly with left shift -- neutrophilia but also monocytosis with relative lymphopenia. - Cancer related +/- stress response? Viral infection? Bacteremia? Urine studies clean. - Blood culture pending, procal 0.85 - Given reason for presentation being pain and aid with social media senior associate, weakness being secondary, opt to trend for now and await other studies prior to ABX initiation. Low threshold to initiate broad-spectrum if suspected. Code: DNR/DNI Diet: Regular, easy to chew PPX: SCDs for now (2) Metastatic disease: (3) COPD with emphysema: (4) PAD (peripheral artery disease): (5) Diabetes: (6) Dysphagia: (7) Hepatomegaly: (8) Goals of care, counseling/discussion: (9) Weakness: (10) Leukocytosis: Admission and Anticipated Discharge Date Admission Date: November 27, 2021 Supervising Physician Co-Signing Physician Notes I personally examined the patient and verified all lemos points of history and exam, discussed case, and agree with decision making with Dr Mckenzie. Sleeping whenever I see him. Given that it appears that his pain is under better control, he was unable to converse with the interpreter translator iPad due to hearing loss, and his daughter was not present to act as a interpreter translator, allowed patient to sleep. Case discussed with palliative at length, input greatly appreciated. Will work on pain controlanticipate the need for long-acting pain medicines to complement his short acting for breakthrough. Anticipate working on a hospice set up as his social situation allows. Does appear to have severe calorie malnutrition given his low weight and low BMI, probably mild to moderate protein based on his albumin levels. Subjective Patient was seen and examined at bedside. HPI was largely unattainable due to language barrier, iPad interpreter translator service was attempted but patient did not having hearing aids and was unable to hear the interpreter translator. Patient was awake, seated upright, and eating breakfast at time of encounter. Physical Exam Constitutional: + thin and + frail appearing Neck: normal visual inspection Respiratory: normal respiratory effort; no labored breathing Gastrointestinal (Abdomen): Inspection/Auscultation: abdomen not distended Musculoskeletal: right side AKA Neurologic: awake Results & Data Results & Data ([facility]) Vital Signs (Past 12 Hours) Vital Signs Temp Pulse Pulse Resp BP BP Pulse Ox 11/27/21 04:00 36.6 C 78 20 104/50 L 11/27/21 03:00 80 23 126/58 L 94 11/27/21 02:30 79 20 94 11/27/21 02:00 85 22 96 11/27/21 01:30 83 28 H 92 11/27/21 01:00 90 25 H 122/82 87 L 11/27/21 00:30 78 23 94 11/27/21 00:00 79 22 138/64 95 11/26/21 23:38 95 11/26/21 23:10 79 25 H 93 11/26/21 23:00 80 28 H 94 11/26/21 22:50 82 27 H 93 11/26/21 22:40 83 21 95 11/26/21 22:30 80 26 H 93 11/26/21 22:33 93 H 20 130/70 93 11/26/21 20:50 37 C 84 18 102/57 L 95 O2 Del Method 11/27/21 04:00 11/27/21 03:00 11/27/21 02:30 11/27/21 02:00 11/27/21 01:30 11/27/21 01:00 11/27/21 00:30 11/27/21 00:00 11/26/21 23:38 Room Air 11/26/21 23:10 11/26/21 23:00 11/26/21 22:50 11/26/21 22:40 11/26/21 22:30 11/26/21 22:33 Room Air 11/26/21 20:50 Room Air Resident Activity Tracking Resident Involvement: Resident Care Provided Care Provided: Adult Hospital Medicine
[2021-11-27] MEDS ORDERED: NON-FORMULARY MEDICATION (Fluticasone-Umeclidin-Vilanter [Trelegy Ellipta] 100-62.5-25 mcg INH SCH (09:00)
[2021-11-27] MEDS: ASPIRIN 81 MG ECTAB PO SCH (10:00)
[2021-11-27] MEDS: METOPROLOL TARTRATE 25 MG TAB PO SCH ×2 (10:01→20:40)
[2021-11-27] MEDS: amLODIPine BESYLATE 5 MG TAB PO SCH (10:01)
[2021-11-27] MEDS: PANTOprazole 40 MG TAB PO SCH (10:01)
[2021-11-27] MEDS: GABAPENTIN 100 MG CAP PO SCH ×3 (10:03→20:39)
[2021-11-27] MEDS: ATORVASTATIN 10 MG TAB PO SCH (10:03)
[2021-11-27] MEDS: FLUTICASONE FUROATE 100MCG 14 PUFFS/INHALER INH SCH (10:05)
[2021-11-27] MEDS: UMECLIDINIUM/VILANTEROL 62.5/25MCG 7 PUFFS/INHALER INH SCH (10:08)
--- NOTE | 2021-11-27 11:51 | Palliative Care Consultation ---
Date of Consultation November 27, 2021 Assessment & Plan (1) Phantom pain: He is on gabapentin 200mg TID and had been taking opioids at home, most recently oxycodone. He may benefit from increased dose of gabapentin if he is able to tolerate it. Agree with routine oxycodone dosing as he has difficulty commu nicating that he has pain. He does have prn hydromorphone IV but has not used that as yet. His daughter has explained to him that he needs to call for a nurse and tell them that he has pain if routine medication is not adequately controlling his pain. He also has pain related to rib lesions and abdominal pain likely related to his liver mets. He notes that this has improved and he is currently getting toradol routinely. Could also consider steroid. (2) Dysphagia: Being evaluated by speech therapy. (3) Weakness: Talked with his daughter about concerns with him living independently. She lives nearby and is very involved but has additional stressors and is not able to be there rn first assistant. He will be evaluated by PT/OT. (4) Palliative care encounter: I talked extensively with Mr. Kelly's daughter as he deferred discussion to her. She has spoken with him about the concern that he has extensive cancer. Yazmin worthington was presented with option for full treatment versus a symptom management and comfort focused approach. He said that he would prefer comfort approach. This is consistent with what he has said in the past about his goals of care. Inés tells me that her mother about a year ago with lung cancer. She has seen a change in him since that time. His greatest concern is how his will aff ect his grandchildren. We talked about hospice care as best support to help him with symptom management. Inés is not able to be with him 23/09 and there is no other family in the area. We discussed the option of hiring caregivers but this is not feasible from a financial standpoint. She has applied for waiver program but has not yet had additional evaluation. She does feel that she may be able to get additional support from catholic and community. Along with case management, we also discussed the possibility of SNF placement. Inés would prefer home with hospice if he is able to be safe at home. Discussed with Dr. Phipps. History of Present Illness Reason for Consultation: goals of care Requesting Physician: Dr. Sharma Attending Physician: Marlon Phipps DO History of Present Illness 76 yo gentleman with history of COPD, diabetes, PVD s/p right AKA. He lives in an apartment with close supervision of his daughter who lives nearby. He has had decreased appetite, weight loss and progressive weakness. He has also been having difficulty swallowing per his daughter. He had been able get around his apartment with a wheelchair and walker. On admission, he had difficulty transferring from car to wheelchair. He presented with severe generalized pain. He has phantom limb pain as a result of prior amputation. He also complains of abdominal pain and bone pain. He has recently been found to have multiple hepatic lesions, presumably malignant as well as a АНДРЕЙ nodule with multiple additional lung nodules. His daughter, Inés, is his POA. Allergies Allergy/AdvReac Type Severity Reaction Status Date / Time egg Allergy HARD TO Verified 11/27/21 02:50 BREATH honey Allergy Verified 11/27/21 10:13 nut - unspecified Allergy Verified 11/27/21 10:13 influenza virus vaccine, AdvReac Blurry Verified 10/31/21 12:48 specific vision milk AdvReac Diarrhea Verified 11/27/21 02:51 Home Medications Medication Instructions Recorded Confirmed Type atorvastatin 10 mg tablet 10 mg PO DAILY 06/13/21 11/27/21 History calcium carb,cit ER 600 mg-vit D3 1 tab PO DAILY 06/13/21 11/27/21 History 12.5 mcg (500 unit) tablet,ext.rel diclofenac sodium 1 % topical gel 2 g topical QID PRN Pain 06/13/21 11/27/21 History magnesium oxide 400 mg (241.3 mg 400 mg PO DAILY 06/13/21 11/27/21 History magnesium) tablet esomeprazole magnesium 40 mg 40 mg PO DAILY #90 caps 07/11/21 11/27/21 Rx capsule,delayed release (Nexium) albuterol sulfate 90 mcg/actuation 2 puff inhalation Q6H PRN 08/20/21 11/27/21 Rx aerosol inhaler Shortness Of Breath Or Wheezing #18 grams fluticasone fur. 100 mcg-umeclid 1 inh inhalation DAILY #60 ea 08/20/21 11/27/21 Rx 62.5 mcg-vilant 25 mcg inhalat.powder (Trelegy Ellipta) metoprolol tartrate 50 mg tablet 25 mg PO BID 09/06/21 11/27/21 History aspirin 81 mg tablet,delayed 81 mg PO DAILY 10/05/21 11/27/21 History release cyanocobalamin (vitamin B-12) 1,000 mcg subcut .COMPLEX 10/05/21 11/27/21 History 1,000 mcg/mL injection kit amlodipine 5 mg tablet 5 mg PO DAILY 10/31/21 11/27/21 History gabapentin 100 mg capsule 200 mg PO TID #180 caps 10/31/21 11/27/21 Rx ondansetron 4 mg disintegrating 4 mg PO Q8H PRN nausea and 11/20/21 11/27/21 Rx tablet vomiting #30 tabs oxycodone 7.5 mg tablet,oral ONLY 7.5 mg PO Q8H PRN pain #29 ea 11/20/21 11/27/21 Rx (not for feeding tubes) Patient History Medical History Asthma Dizziness History of amputation of right lower extremity MDD (major depressive disorder) PAD (peripheral artery disease) Phantom pain Tobacco use disorder Surgical History History of cataract extraction with lens replacement History of cholecystectomy History of dental surgery Hx of AKA (above knee amputation) RIGHT Family History Mother Heart disease Father Cancer colon Asthma Colorectal cancer Grandmother Allergies Other No family history of adverse response to anesthesia No family history of bleeding disorder Denies family history of Hypertension Stroke Social History Smoking Status: Heavy tobacco smoker Tobacco Type: Cigarettes Cigarettes Per Day: 10; Second Hand Exposure: No; Hx Alcohol Use: No Hx Substance Use: No Preferred Language: Spanish Communication Ability: Impaired Communication Ability Comment: patient can comprehend a few simple palauan words. Visual Impairment: Diminished Hearing Ability: Normal Conservation Biology Professor Required: Yes Beliefs That Will Affect Care: Cultural Cultural Beliefs: According to H&P information, in patient's culture, they dont speak of end of life / metastatic disease. marital status: / Current Living Situation: Alone Current Living Situation Comment: accordning to H&P, patient lives at home with family and they care for him current occupational status: retired Feels Safe at Home: Yes Review of Systems Review of Systems: ESAS Pain 2/3 Dyspnea 0/3 Nausea 0/3 Anxiety 1/3 Drowsiness 0/3 PPS 40% Physical Exam Constitutional: + ill appearing and + thin ENMT: temporal wasting Respiratory: normal respiratory effort; no labored breathing Gastrointestinal (Abdomen): nondistended, tender RUQ Musculoskeletal: Extremities: + muscle atrophy Neurologic: awake, confused at times Results & Data ([facility]) Vital Signs (Past 12 Hours) Vital Signs Temp Pulse Pulse Resp BP BP Pulse Ox 11/27/21 07:43 97.9 F 75 18 111/62 92 11/27/21 04:00 97.9 F 78 20 104/50 L 11/27/21 03:00 80 23 126/58 L 94 11/27/21 02:30 79 20 94 11/27/21 02:00 85 22 96 11/27/21 01:30 83 28 H 92 11/27/21 01:00 90 25 H 122/82 87 L 11/27/21 00:30 78 23 94 11/27/21 00:00 79 22 138/64 95 O2 Del Method 11/27/21 07:43 Room Air 11/27/21 04:00 11/27/21 03:00 11/27/21 02:30 11/27/21 02:00 11/27/21 01:30 11/27/21 01:00 11/27/21 00:30 11/27/21 00:00 PG Care Time/CCT Total # of Minutes Spent Total Time Spent: 120 Total Time Spent with Patient: Total time spent is greater than 50% in coordination of care (as documented) at patient's floor/unit and/or counseling patient: symptom management, goals of care, hospice, patient and family education and support Coding Level of Care Code 36833 Initial Inpt Care Lvl 3 Diagnoses Phantom pain G54.6 Dysphagia R13.10 Weakness R53.1 Palliative care encounter Z51.5
[2021-11-27] MEDS: HYDROmorphone INJ 0.5 MG/0.5 ML SYR IV PRN (12:34)
[2021-11-27] MEDS: DICLOFENAC SOD 1% GEL 100 GM TUBE EXT SCH ×4 (12:35→20:38)
--- NOTE | 2021-11-27 23:01 | Electrocardiogram Report ---
Test Reason : Blood Pressure : / mmHG Vent. Rate : 079 BPM Atrial Rate : 079 BPM P-R Int : 152 ms QRS Dur : 062 ms QT Int : 404 ms P-R-T Axes : 080 -29 073 degrees QTc Int : 463 ms Sinus rhythm with Premature atrial complexes When compared with ECG of 20-NOV-2021 09:33, No significant change Confirmed by Parish Sanchez ([id number]) on 11/27/2021 11:01:07 PM Referred By: REFERRED SELF Confirmed By:Parish Sanchez
--- NOTE | 2021-11-27 23:07 | Billing Data ---
Date of Service November 27, 2021 Coding Level of Care Code 59911 Initial Inpt Care Lvl 3
[2021-11-28] MEDS: HYDROmorphone INJ 0.5 MG/0.5 ML SYR IV PRN ×2 (03:44→11:31)
[2021-11-28] MEDS: oxyCODONE HCL SOLN 5 MG/5 ML UDC PO SCH ×3 (06:03→23:09)
[2021-11-28] MEDS: KETOROLAC TROMETHAMINE 10 MG TABLET PO SCH ×3 (06:03→23:08)
--- NOTE | 2021-11-28 07:36 | Hospitalist Progress Note ---
Date of Service November 28, 2021 Assessment & Plan (1) Intractable abdominal pain: Plan: This is a 76-year-old gentleman with a history of COPD, diabetes, peripheral arterial disease s/p AKA on the RIGHT complicated by phantom pain, left renal mass, metastatic disease who presented to [facility] for evaluation of abdominal and bone-related pain likely from metastatic cancer of unknown primary (though pulmonary highly suspected). He requires hospitalization for management of his pain and clarification of his/his family's goals of care. Intractable Pain - Suspect primarily related to metastatic disease in the liver and ribs -- this is primarily where he is reporting his pain and is reproducible on exam (notable hepatomegaly) - Current home regimen: oxycodone 7.5mg q8h PRN (though daughter reports he has trouble taking this because of his dysphagia) + Would consider trial of basal pain medication via Fentanyl transdermal patch - Current medications trialed include: -- Oxycodone syrup 7.5mg q8h KEYLA (patient recently switched to this by PCP - given dysphagia unclear how much he actually got down/saw benefit from) -- Toradol 10mg q8h KEYLA (optimally not to be continued over 5 days) -- Dilaudid 0.25mg IV for breakthrough pain -- Continue home gabapentin for neuropathic pain (phantom limb) ; likely could increase if needed -- Hold on scheduling APAP given unclear burden of hepatic disease at this time -- May wish to consider initiation of muscle relaxants or Valium if tolerated / not oversedated by above medications + Per palliative care recommendation, could start dexamethasone to help decrease inflammation from liver mets/contributing to pain - Continue PPI given scheduled NSAID Metastatic Disease - In the context of significant heavy tobacco use, recent weight loss, worsening pain, anorexia over the past several months - ED visit 11/20: CT-A/P demonstrated interval development of multiple hypodense lesions within the liver consistent with metastatic disease, possible early metastatic changes within the sixth and seventh ribs, 6.3 lobular hypodense lesion in the upper pole of the kidney thought to be a cyst; CTA of the chest demonstrated increase in size of pulmonary nodule within the left upper lobe, alongside multiple irregular pulmonary nodules. - New diagnosis as of 11/20 -- primary unknown, but concern for pulmonary source given numerous nodules and extensive smoking history - Pain management as above - Unsure if patient would be eligible for any salvage chemotherapy options -- will depend on [id number] and risks-benefits of possible adverse effects of these RX. Not interested in radiation RX COPD - Secondary to prolonged and extensive tobacco use - Continue home inhalers PAD - Extensive. Status-post AKA of the RLE - Continue ASA, atorvastatin Prediabetes / ?History of Diabetes - Review of records reveals prediabetes, A1c 6.2% in 06/2021, not on any meds - Hold on initiating ACHS glucose checks given patient's recent anorexia -- can consider starting at any time Dysphagia - Daughter reporting patient has had significant difficulties with swallowing lately -- feels like food/pills are getting stuck; not as much with liquids - Speech consult completed: recommending [id number] diet with thin liquids, aspiration and GERD precautions, meds in carrier. No direct treatment at this time. - Boost shakes are ordered Hepatomegaly - Appreciated on exam, +TTP -- likely secondary to metastatic disease - CT-A/P: "Interval development of multiple hypodense lesions seen throughout the liver with the largest in the left hepatic lobe measuring 3.7 cm. This is consistent with metastatic disease." --> Comparison is CT-Chest 08/29 - Significant elevation in ALP with otherwise "normal" LFTs -- ALP may be secondary to osseous mets - PT: 12.1, INR: 1.1, aPTT: 29.5 - Will avoid hepatotoxic medications initially Goals of Care Discussion +Daughter states that in [place] culture, some people prefer not to be told about their severe illness and have it managed by others +Daughter also told me she did end up sharing the results with him - Patient's daughter, POGuillermina, would like to pursue measures focused on promoting comfort rather than aggressive treatment. - Daughter confirmed that patient is DNR/DNI and that they have discussed this - Case management: see consult note for full details. In summary, patient currently lives alone and daughter would prefer he stay at home with hospice, but referral placed to SNF to possible short stay to increase strength. - Palliative Care: see consult note for full details. In summary, patient's daughter has discussed with him the concern that he has extensive cancer and when it was discussed whether he would like full treatment vs. management of his symptoms, he preferred the latter. Weakness - Significant weakness, anorexia, and fatigue reported by daughter over the last several weeks, in conjunction with pain - Primarily suspect that this is due to his metastatic burden and pain - Work-up otherwise: - Though no clear source of infection on exam, leukocytosis is noted in this regard - Blood culture pending, procal 0.85 - Pending goals of care, may wish to consider PT/OT Leukocytosis - WBC 15 on arrival (yesterday 13.6, today 15.6) predominantly with left shift -- neutrophilia but also monocytosis with relative lymphopenia. - Cancer related +/- stress response? Viral infection? Bacteremia? Urine studies clean. - Blood culture pending, procal 0.85 - Given reason for presentation being pain and aid with social media sr strategy manager, weakness being secondary, opt to trend for now and await other studies prior to ABX initiation. Low threshold to initiate broad-spectrum if suspected. Code: DNR/DNI Diet: Regular, easy to chew PPX: SCDs for now (2) Metastatic disease: (3) COPD with emphysema: (4) PAD (peripheral artery disease): Plan: (5) Diabetes: (6) Dysphagia: (7) Hepatomegaly: (8) Goals of care, counseling/discussion: (9) Weakness: Plan: (10) Leukocytosis: Admission and Anticipated Discharge Date Admission Date: November 27, 2021 Supervising Physician Co-Signing Physician Notes I personally examined the patient and verified all lemos points of history and exam, discussed case, and agree with decision making with Dr Mckenzie. Attempted to see patient multiple times today. He was sleeping comfortably each time. Tried to find him in the time his daughter was presentbut was unable to connect. Discussed with nursing about this, but every time I went in the room he was sleeping and alone. Vitals noted, in general he is resting comfortably appearing to be in no distress. Breathing unlabored no accessory muscle use good effort. Skin shows no rashes no pallor or icterus. Neuro with no lateralizing signs at rest Intractable abdominal pain/metastatic disease to liver and ribs Appears to be doing surprisingly well on current pain regimen. We will definitely want to determine if his pain is overall controlled or if there are ups and downs that might benefit from more long-acting pain medication as basal controlbut given that he seems comfortable every time I see him today, and declined dosing of pain medications last night, I suspect for now at least he is doing reasonably well. When or if pain worsens, can definitely consider dexamethasone for hepatic metastatic stretch, and would consider a long-acting pain medicine for more of a "basal bolus" regimen. Tobacco abuse disorder COPD- Continue usual home inhalers, breathing appears comfortable on room air. PAD/right lower extremity AKA- Continue aspirin and atorvastatin Diabetes mellitus-most recent A1c was 6.2 on 06/22 Patient/family/Case management working on safe disposition options. Subjective Patient was seen and examined at bedside. iPad meterman service was utilized, interpreter and translator was utilized for verbal translation and typed translation. Patient denied any pain today. States he has been able to eat and drink without issue. He denies any trouble breathing. Review of Systems Review of Systems: As per HPI Physical Exam Constitutional: + thin and + frail appearing Neck: normal visual inspection Respiratory: normal respiratory effort; no labored breathing Gastrointestinal (Abdomen): Inspection/Auscultation: abdomen not distended Percussion/Palpation: + hepatomegaly Neurologic: awake Resident Activity Tracking Resident Involvement: Resident Care Provided Care Provided: Adult Hospital Medicine
[2021-11-28 07:47] LABS: Basophils # (auto) 0.02 K/uL (0-0.2); Basophils % (auto) 0.1 %; Eosinophils # (auto) 0.07 K/uL (0-0.50); Eosinophils % (auto) 0.4 %; Hematocrit (blood only) 26.6 % (40.1-51.0); Hemoglobin 8.6 g/dl (14.0-18.0); Immature Granulocytes # (auto) 0.16 K/uL (0.00-0.02); Lymphocytes # (auto) 0.88 K/uL (1.2-3.4); Lymphocytes % (auto) 5.6 %; Mean Corpuscular Hemoglobin 27.3 pg (25.0-34.0); Mean Corpuscular Hgb Conc 32.3 g/dL (32.0-36.0); Mean Corpuscular Volume 84.4 fL (80.0-100.0); Mean Platelet Volume 10.3 fL (9.4-12.4); Monocytes # (auto) 1.17 K/uL (0.24-0.82); Monocytes % (auto) 7.5 %; Neutrophils # (auto) 13.32 K/uL (1.4-6.5); Neutrophils % (auto) 85.4 %; Platelet Count 279 K/uL (130-400); RDW Coefficient of Variation 15.4 % (11.5-14.5); RDW Standard Deviation 46.7 fL (36.4-46.3); Red Blood Count 3.15 M/uL (4.63-6.08); White Blood Count 15.62 K/ul (4.8-10.8)
[2021-11-28 08:27] LABS: Albumin Globulin Ratio 1.2 (0.9-2); Albumin Level 2.4 gm/dl (3.4-5.0); BUN Creatinine Ratio 33.7 (10-20); Bilirubin,Total 0.7 mg/dl (0.2-1.0); Calcium 8.2 mg/dl (8.5-10.1); Est GFR (African American) 97.6 ml/min; Est GFR (Non-African American) 84.2 ml/min; Potassium 4.3 mmol/L (3.5-5.1); Total Protein 4.4 gm/dl (6.0-8.3)
[2021-11-28] MEDS: ASPIRIN 81 MG ECTAB PO SCH (10:41)
[2021-11-28] MEDS: ATORVASTATIN 10 MG TAB PO SCH (10:41)
[2021-11-28] MEDS: DICLOFENAC SOD 1% GEL 100 GM TUBE EXT SCH ×3 (10:43→21:27)
[2021-11-28] MEDS: METOPROLOL TARTRATE 25 MG TAB PO SCH ×2 (10:44→23:09)
[2021-11-28] MEDS: GABAPENTIN 100 MG CAP PO SCH ×3 (10:44→21:27)
[2021-11-28] MEDS: FLUTICASONE FUROATE 100MCG 14 PUFFS/INHALER INH SCH (10:44)
[2021-11-28] MEDS: UMECLIDINIUM/VILANTEROL 62.5/25MCG 7 PUFFS/INHALER INH SCH (10:45)
[2021-11-28] MEDS: PANTOprazole 40 MG TAB PO SCH (10:45)
[2021-11-28] MEDS: amLODIPine BESYLATE 5 MG TAB PO SCH (17:19)
--- NOTE | 2021-11-28 18:35 | Billing Data ---
Date of Service November 28, 2021 Coding Level of Care Code 84740 Subseq Hosp Care Lvl 2
[2021-11-29] MEDS: oxyCODONE HCL SOLN 5 MG/5 ML UDC PO SCH ×4 (05:39→20:03)
[2021-11-29] MEDS: KETOROLAC TROMETHAMINE 10 MG TABLET PO SCH ×4 (05:40→20:03)
--- NOTE | 2021-11-29 06:49 | Hospitalist Progress Note ---
Date of Service November 29, 2021 Assessment & Plan (1) Intractable abdominal pain: Plan: This is a 76-year-old gentleman with a history of COPD, diabetes, peripheral arterial disease s/p AKA on the right complicated by phantom pain, left renal mass, metastatic disease who presented to [facility] for evaluation of abdominal and bone-related pain likely from metastatic cancer of unknown primary (though pulmonary highly suspected). He requires hospitalization for management of his pain and clarification of his/his family's goals of care. Intractable Pain - Suspect primarily related to metastatic disease in the liver and ribs -- this is primarily where he is reporting his pain and is reproducible on exam (notable hepatomegaly) - Current home regimen: oxycodone 7.5mg q8h PRN (though daughter reports he has trouble taking this because of his dysphagia) + Would consider trial of basal pain medication via Fentanyl transdermal patch - Current medications trialed include: -- Oxycodone syrup 7.5mg q8h KEYLA (patient recently switched to this by PCP - given dysphagia unclear how much he actually got down/saw benefit from) -- Toradol 10mg q8h KEYLA (optimally not to be continued over 5 days) -- Dilaudid 0.25mg IV for breakthrough pain -- Continue home gabapentin for neuropathic pain (phantom limb) ; likely could increase if needed -- Hold on scheduling APAP given unclear burden of hepatic disease at this time -- May wish to consider initiation of muscle relaxants or Valium if tolerated / not oversedated by above medications + Per palliative care recommendation, could start dexamethasone to help decrease inflammation from liver mets/contributing to pain - Continue PPI given scheduled NSAID Metastatic Disease - In the context of significant heavy tobacco use, recent weight loss, worsening pain, anorexia over the past several months - ED visit 11/20: CT-A/P demonstrated interval development of multiple hypodense lesions within the liver consistent with metastatic disease, possible early metastatic changes within the sixth and seventh ribs, 6.3 lobular hypodense lesion in the upper pole of the kidney thought to be a cyst; CTA of the chest demonstrated increase in size of pulmonary nodule within the left upper lobe, alongside multiple irregular pulmonary nodules. - New diagnosis as of 11/20 -- primary unknown, but concern for pulmonary source given numerous nodules and extensive smoking history - Pain management as above - Unsure if patient would be eligible for any salvage chemotherapy options -- will depend on [id number] and risks-benefits of possible adverse effects of these RX. Not interested in radiation RX COPD - Secondary to prolonged and extensive tobacco use - Continue home inhalers PAD - Extensive. Status-post AKA of the RLE - Continue ASA, atorvastatin Prediabetes / ?History of Diabetes - Review of records reveals prediabetes, A1c 6.2% in 06/2021, not on any meds - Hold on initiating ACHS glucose checks given patient's recent anorexia -- can consider starting at any time Dysphagia - Daughter reporting patient has had significant difficulties with swallowing lately -- feels like food/pills are getting stuck; not as much with liquids - Speech consult completed: recommending [id number] diet with thin liquids, aspiration and GERD precautions, meds in carrier. No direct treatment at this time. - Boost shakes are ordered Hepatomegaly - Appreciated on exam, +TTP -- likely secondary to metastatic disease - CT-A/P: "Interval development of multiple hypodense lesions seen throughout the liver with the largest in the left hepatic lobe measuring 3.7 cm. This is consistent with metastatic disease." --> Comparison is CT-Chest 08/29 - Significant elevation in ALP with otherwise "normal" LFTs -- ALP may be secondary to osseous mets - PT: 12.1, INR: 1.1, aPTT: 29.5 - Will avoid hepatotoxic medications initially Goals of Care Discussion +Daughter states that in [place] culture, some people prefer not to be told about their severe illness and have it managed by others +Daughter also told me she did end up sharing the results with him - Patient's daughter, POGuillermina, would like to pursue measures focused on promoting comfort rather than aggressive treatment. - Daughter confirmed that patient is DNR/DNI and that they have discussed this - Case management: see consult note for full details. In summary, patient currently lives alone and daughter would prefer he stay at home with hospice, but referral placed to SNF to possible short stay to increase strength. - Palliative Care: see consult note for full details. In summary, patient's daughter has discussed with him the concern that he has extensive cancer and when it was discussed whether he would like full treatment vs. management of his symptoms, he preferred the latter. Weakness - Significant weakness, anorexia, and fatigue reported by daughter over the last several weeks, in conjunction with pain - Primarily suspect that this is due to his metastatic burden and pain - Work-up otherwise: - Though no clear source of infection on exam, leukocytosis is noted in this regard - Blood culture no growth at 48 hrs, procal 0.85 --> PT evaluation completed: unsafe to go home without 24/7 supervision. Recommending inpatient rehab. --> Case management: waiting to hear back from [facility] regarding acceptance. Leukocytosis - WBC 15 on arrival (today 12.99) predominantly with left shift -- neutrophilia but also monocytosis with relative lymphopenia. - Cancer related +/- stress response? Viral infection? Bacteremia? Urine studies clean. - Blood culture no growth at 48 hrs, procal 0.85 - Given reason for presentation being pain and aid with social media coordinator, weakness being secondary, opt to trend for now and await other studies prior to ABX initiation. Low threshold to initiate broad-spectrum if suspected. Code: DNR/DNI Diet: Regular, easy to chew PPX: SCDs for now (2) Metastatic disease: (3) COPD with emphysema: (4) PAD (peripheral artery disease): Plan: (5) Diabetes: (6) Dysphagia: (7) Hepatomegaly: (8) Goals of care, counseling/discussion: (9) Weakness: Plan: (10) Leukocytosis: Admission and Anticipated Discharge Date Admission Date: November 27, 2021 Supervising Physician Co-Signing Physician Notes I personally examined the patient and verified all lemos points of history and exam, discussed case, and agree with decision making with Dr Mckenzie. once again sleeping when i try to see him. dtr not present. d/w nursing - pain has been controlled. sleeping much of the day. Vitals noted, in general he is resting comfortably appearing to be in no distress. Breathing unlabored no accessory muscle use good effort. Skin shows no rashes no pallor or icterus. Neuro with no lateralizing signs at rest Intractable abdominal pain/metastatic disease to liver and ribs Appears to be doing surprisingly well on current pain regimen. We will definitely want to determine if his pain is overall controlled or if there are ups and downs that might benefit from more long-acting pain medication as basal controlbut given that he seems comfortable every time I see him today, and declined dosing of pain medications last night, I suspect for now at least he is doing reasonably well. When or if pain worsens, can definitely consider dexamethasone for hepatic metastatic stretch, and would consider a long-acting pain medicine for more of a "basal bolus" regimen. Tobacco abuse disorder COPD- Continue usual home inhalers, breathing appears comfortable on room air. PAD/right lower extremity AKA- Continue aspirin and atorvastatin Diabetes mellitus-most recent A1c was 6.2 on 06/22 Patient/family/Case management working on safe disposition options. Subjective Patient was seen and examined at bedside. Ranjan was sleeping at time of encounter. In no acute distress, appeared to be resting comfortably. Review of Systems Review of Systems: As per HPI Physical Exam Constitutional: + thin and + frail appearing Neck: normal visual inspection Respiratory: normal respiratory effort; no labored breathing Gastrointestinal (Abdomen): Inspection/Auscultation: abdomen not distended Percussion/Palpation: + hepatomegaly Results & Data Results & Data ([facility]) Vital Signs (Past 12 Hours) Vital Signs Temp Pulse Resp BP Pulse Ox O2 Del Method 11/28/21 23:53 72 109/56 L 11/28/21 21:16 36.9 C 67 18 105/42 L 93 Room Air Resident Activity Tracking Resident Involvement: Resident Care Provided Care Provided: Adult Hospital Medicine
[2021-11-29] MEDS: amLODIPine BESYLATE 5 MG TAB PO SCH ×2 (07:25→15:33)
[2021-11-29 07:46] LABS: Hematocrit (blood only) 27.3 % (40.1-51.0); Hemoglobin 8.8 g/dl (14.0-18.0); Mean Corpuscular Hemoglobin 27.2 pg (25.0-34.0); Mean Corpuscular Hgb Conc 32.2 g/dL (32.0-36.0); Mean Corpuscular Volume 84.3 fL (80.0-100.0); Mean Platelet Volume 10.6 fL (9.4-12.4); Platelet Count 247 K/uL (130-400); RDW Coefficient of Variation 15.5 % (11.5-14.5); RDW Standard Deviation 47.1 fL (36.4-46.3); Red Blood Count 3.24 M/uL (4.63-6.08); White Blood Count 12.99 K/ul (4.8-10.8)
[2021-11-29 08:12] LABS: Albumin Level 2.4 gm/dl (3.4-5.0); BUN Creatinine Ratio 25.7 (10-20); Bilirubin,Total 0.7 mg/dl (0.2-1.0); Calcium 8.3 mg/dl (8.5-10.1); Creatinine Clr Calc Pharmacy 36.6 ml/min; Est GFR (African American) 83.4 ml/min; Est GFR (Non-African American) 71.9 ml/min; Globulin 2.3 gm/dl (2.5-4.0); Potassium 4.2 mmol/L (3.5-5.1); Total Protein 4.7 gm/dl (6.0-8.3)
[2021-11-29] MEDS: FLUTICASONE FUROATE 100MCG 14 PUFFS/INHALER INH SCH (10:38)
[2021-11-29] MEDS: METOPROLOL TARTRATE 25 MG TAB PO SCH ×2 (10:38→20:02)
[2021-11-29] MEDS: UMECLIDINIUM/VILANTEROL 62.5/25MCG 7 PUFFS/INHALER INH SCH (10:39)
[2021-11-29] MEDS: ASPIRIN 81 MG ECTAB PO SCH (10:46)
[2021-11-29] MEDS: PANTOprazole 40 MG TAB PO SCH (10:46)
[2021-11-29] MEDS: ATORVASTATIN 10 MG TAB PO SCH (10:46)
[2021-11-29] MEDS: GABAPENTIN 100 MG CAP PO SCH ×4 (10:46→20:00)
[2021-11-29] MEDS: DICLOFENAC SOD 1% GEL 100 GM TUBE EXT SCH ×4 (10:47→20:04)
--- NOTE | 2021-11-29 18:09 | Billing Data ---
Date of Service November 29, 2021 Coding Level of Care Code 09357 Subseq Hosp Care Lvl 2
[2021-11-30] MEDS: KETOROLAC TROMETHAMINE 10 MG TABLET PO SCH ×3 (05:49→21:09)
[2021-11-30] MEDS: oxyCODONE HCL SOLN 5 MG/5 ML UDC PO SCH (05:50)
--- NOTE | 2021-11-30 06:43 | Hospitalist Progress Note ---
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 He requires hospitalization for management of his pain and clarification of his/his family's goals of care. Intractable Pain - Suspect primarily related to metastatic disease in the liver and ribs -- this is primarily where he is reporting his pain and is reproducible on exam (notable hepatomegaly) - Current home regimen: oxycodone 7.5mg q8h PRN (though daughter reports he has trouble taking this because of his dysphagia) - Current medications trialed include: -- Oxycodone syrup 7.5mg q8h KEYLA -- Toradol 10mg q8h KEYLA (optimally not to be continued over 5 days) -- Dilaudid 0.25mg IV for breakthrough pain -- Continue home gabapentin for neuropathic pain (phantom limb) ; likely could increase if needed -- Hold on scheduling APAP given unclear burden of hepatic disease at this time -- May wish to consider initiation of muscle relaxants or Valium if tolerated / not oversedated by above medications - Started Fentanyl transdermal patch this AM, may take 24+hrs to determine if beneficial - Per palliative care recommendation: started 8mg IV q24 dexamethasone (can adjust dose based on response) to help decrease inflammation from liver mets/contributing to pain - Continue PPI given scheduled NSAID Metastatic Disease - In the context of significant heavy tobacco use, recent weight loss, worsening pain, anorexia over the past several months - ED visit 11/20: CT-A/P demonstrated interval development of multiple hypodense lesions within the liver consistent with metastatic disease, possible early metastatic changes within the sixth and seventh ribs, 6.3 lobular hypodense lesion in the upper pole of the kidney thought to be a cyst; CTA of the chest demonstrated increase in size of pulmonary nodule within the left upper lobe, alongside multiple irregular pulmonary nodules. - New diagnosis as of 11/20 -- primary unknown, but concern for pulmonary source given numerous nodules and extensive smoking history - Pain management as above - Unsure if patient would be eligible for any salvage chemotherapy options -- will depend on [id number] and risks-benefits of possible adverse effects of these RX. Not interested in radiation RX COPD - Secondary to prolonged and extensive tobacco use - Continue home inhalers - Required 2L NC O2 this morning due to O2 sat at 84%, currently satting 91% on room air PAD - Extensive. Status-post AKA of the RLE - Continue ASA, atorvastatin Prediabetes / ?History of Diabetes - Review of records reveals prediabetes, A1c 6.2% in 06/2021, not on any meds - Hold on initiating ACHS glucose checks given patient's recent anorexia -- can consider starting at any time Dysphagia - Daughter reporting patient has had significant difficulties with swallowing lately -- feels like food/pills are getting stuck; not as much with liquids - Speech consult completed: recommending [id number] diet with thin liquids, aspiration and GERD precautions, meds in carrier. No direct treatment at this time. - Boost shakes are ordered Hepatomegaly - Appreciated on exam, +TTP -- likely secondary to metastatic disease - CT-A/P: "Interval development of multiple hypodense lesions seen throughout the liver with the largest in the left hepatic lobe measuring 3.7 cm. This is consistent with metastatic disease." --> Comparison is CT-Chest 08/29 - Significant elevation in ALP with otherwise "normal" LFTs -- ALP may be secondary to osseous mets - PT: 12.1, INR: 1.1, aPTT: 29.5 - Will avoid hepatotoxic medications initially Goals of Care Discussion +Daughter states that in [place] culture, some people prefer not to be told about their severe illness and have it managed by others +Daughter also told me she did end up sharing the results with him - Patient's daughter, ALLIE, would like to pursue measures focused on promoting c omfort rather than aggressive treatment. - Daughter confirmed that patient is DNR/DNI and that they have discussed this - Case management: see consult note for full details. In summary, patient coty hartman lives alone and daughter would prefer he stay at home with hospice, but referral placed to SNF to possible short stay to increase strength. - Palliative Care: see consult note for full details. In summary, patient's daughter has discussed with him the concern that he has extensive cancer and when it was discussed whether he would like full treatment vs. management of his symptoms, he preferred the latter. Weakness - Significant weakness, anorexia, and fatigue reported by daughter over the last several weeks, in conjunction with pain - Primarily suspect that this is due to his metastatic burden and pain - Work-up otherwise: - Though no clear source of infection on exam, leukocytosis is noted in this regard - Blood culture no growth at 48 hrs, procal 0.85 --> PT evaluation completed: unsafe to go home without 24/7 supervision. Recommending inpatient rehab. --> Case management: waiting to hear back from [facility] regarding acceptance, anticipate response early next week Leukocytosis - WBC 15 on arrival (today 12.99) predominantly with left shift -- neutrophilia but also monocytosis with relative lymphopenia. - Cancer related +/- stress response? Viral infection? Bacteremia? Urine studies clean. - Blood culture no growth at 48 hrs, procal 0.85 - Given reason for presentation being pain and aid with social staff worker, weakness being secondary, opt to trend for now and await other studies prior to ABX initiation. Low threshold to initiate broad-spectrum if suspected. Code: DNR/DNI Diet: Regular, easy to chew PPX: SCDs for now (2) Metastatic disease: (3) COPD with emphysema: (4) PAD (peripheral artery disease): Plan: (5) Diabetes: (6) Dysphagia: (7) Hepatomegaly: (8) Goals of care, counseling/discussion: (9) Weakness: Plan: (10) Leukocytosis: Admission and Anticipated Discharge Date Admission Date: November 27, 2021 Supervising Physician Co-Signing Physician Notes I personally examined the patient and verified all lemos points of history and exam, discussed case, and agree with decision making with Dr Mckenzie. Today's noting that he is in more pain. We discussed whether or not he would want pain medicines increased and he notes that he would. Later nursing also informed Dr. Mckenzie that he is still in significant amount of pain. Vitals noted, sitting up in bed appearing mildly restless. HEENT normocephalic atraumatic mucous membranes moist. Breathing unlabored no accessory muscle use good effort. Skin shows no rashes no pallor or icterus. Neuro without focal deficits. Intractable abdominal pain/metastatic disease to liver and ribs Pain a bit worsedexamethasone to try to help with metastatic swelling painparticularly liver capsule. Add fentanyl patch (with his paucity of body fat we may need to switch to a pill for long-acting pain control, but given this would be easier than having him swallowing more pills, will try patch for now), and switch oxycodone from every 8 hours scheduled to every 4 as needed. Tobacco abuse disorder COPD- Continue usual home inhalers, breathing appears comfortable on room air. PAD/right lower extremity AKA- Continue aspirin and atorvastatin Diabetes mellitus-most recent A1c was 6.2 on 06/22 Patient/family/Case management working on safe disposition options. anticipate [facility] once bed available Subjective Patient was seen at bedside, sleeping at time of encounter. Discussed with nursing, patient had increased discomfort throughout the day and phantom limb pain. Review of Systems Review of Systems: As per HPI Physical Exam Constitutional: + thin and + frail appearing Neck: normal visual inspection Respiratory: normal respiratory effort; no labored breathing Gastrointestinal (Abdomen): Inspection/Auscultation: abdomen not distended Percussion/Palpation: + hepatomegaly Neurologic: awake Results & Data Results & Data ([facility]) Vital Signs (Past 12 Hours) Vital Signs Temp Pulse Resp BP Pulse Ox O2 Del Method 11/29/21 21:00 Room Air 11/29/21 21:09 37.1 C 66 18 112/53 L 92 Room Air Resident Activity Tracking Resident Involvement: Resident Care Provided Care Provided: Adult Hospital Medicine
[2021-11-30] MEDS: DICLOFENAC SOD 1% GEL 100 GM TUBE EXT SCH ×4 (08:58→21:10)
[2021-11-30] MEDS: METOPROLOL TARTRATE 25 MG TAB PO SCH ×2 (08:58→20:16)
[2021-11-30] MEDS: FLUTICASONE FUROATE 100MCG 14 PUFFS/INHALER INH SCH (08:58)
[2021-11-30] MEDS: GABAPENTIN 100 MG CAP PO SCH ×3 (08:58→20:11)
[2021-11-30] MEDS: ASPIRIN 81 MG ECTAB PO SCH (08:58)
[2021-11-30] MEDS: PANTOprazole 40 MG TAB PO SCH (08:58)
[2021-11-30] MEDS: ATORVASTATIN 10 MG TAB PO SCH (08:58)
[2021-11-30] MEDS: UMECLIDINIUM/VILANTEROL 62.5/25MCG 7 PUFFS/INHALER INH SCH (08:59)
[2021-11-30 09:33] LABS: Hematocrit (blood only) 26.5 % (40.1-51.0); Hemoglobin 8.8 g/dl (14.0-18.0); Mean Corpuscular Hgb Conc 33.2 g/dL (32.0-36.0); Mean Corpuscular Volume 84.4 fL (80.0-100.0); Mean Platelet Volume 10.1 fL (9.4-12.4); Platelet Count 249 K/uL (130-400); RDW Coefficient of Variation 15.9 % (11.5-14.5); RDW Standard Deviation 48.3 fL (36.4-46.3); Red Blood Count 3.14 M/uL (4.63-6.08); White Blood Count 13.83 K/ul (4.8-10.8)
[2021-11-30 09:54] LABS: Albumin Level 2.3 gm/dl (3.4-5.0); BUN Creatinine Ratio 25.9 (10-20); Bilirubin,Total 0.8 mg/dl (0.2-1.0); Calcium 8.3 mg/dl (8.5-10.1); Creatinine Clr Calc Pharmacy 43.5 ml/min; Est GFR (African American) 98.1 ml/min; Est GFR (Non-African American) 84.6 ml/min; Globulin 2.2 gm/dl (2.5-4.0); Potassium 4.3 mmol/L (3.5-5.1); Total Protein 4.5 gm/dl (6.0-8.3)
[2021-11-30] MEDS ORDERED: fentaNYL 12 MCG/HR TDSY TD SCH (10:45)
[2021-11-30] MEDS: amLODIPine BESYLATE 5 MG TAB PO SCH (12:18)
[2021-11-30] MEDS: oxyCODONE HCL SOLN 5 MG/5 ML UDC PO PRN (14:07)
[2021-11-30] MEDS ORDERED: dexAMETHasone 8 MG in SYRINGE 0 ML IV SCH (16:00)
[2021-11-30] MEDS: HYDROmorphone INJ 0.5 MG/0.5 ML SYR IV PRN (17:03)
[2021-11-30] MEDS: CHECK fentaNYL PATCH PLACEMENT SCH ×2 (17:04→23:49)
--- NOTE | 2021-11-30 18:43 | Billing Data ---
Date of Service November 30, 2021 Coding Level of Care Code 16462 Subseq Hosp Care Lvl 3
[2021-12-01] MEDS: KETOROLAC TROMETHAMINE 10 MG TABLET PO SCH ×3 (05:52→21:07)
[2021-12-01] MEDS: oxyCODONE HCL SOLN 5 MG/5 ML UDC PO PRN ×2 (06:38→19:57)
--- NOTE | 2021-12-01 07:09 | Hospitalist Progress Note ---
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 He requires hospitalization for management of his pain and clarification of his/his family's goals of care. Intractable Pain - Suspect primarily related to metastatic disease in the liver and ribs -- this is primarily where he is reporting his pain and is reproducible on exam (notable hepatomegaly) - Current home regimen: oxycodone 7.5mg q8h PRN (though daughter reports he has trouble taking this because of his dysphagia) - Current medications trialed include: -- Oxycodone syrup 7.5mg q8h KEYLA -- Toradol 10mg q8h KEYLA (optimally not to be continued over 5 days) -- Dilaudid 0.25mg IV for breakthrough pain -- Continue home gabapentin for neuropathic pain (phantom limb) ; likely could increase if needed -- Hold on scheduling APAP given unclear burden of hepatic disease at this time -- May wish to consider initiation of muscle relaxants or Valium if tolerated / not oversedated by above medications - Increased Fentanyl transdermal patch from 12.5 to 25 mcg due to the patient stating it is helping but needs a little more, may take 24+hrs to determine if beneficial - Per palliative care recommendation: started 8mg IV q24 dexamethasone (can adjust dose based on response) to help decrease inflammation from liver mets/contributing to pain - Continue PPI given scheduled NSAID Metastatic Disease - In the context of significant heavy tobacco use, recent weight loss, worsening pain, anorexia over the past several months - ED visit 11/20: CT-A/P demonstrated interval development of multiple hypodense lesions within the liver consistent with metastatic disease, possible early metastatic changes within the sixth and seventh ribs, 6.3 lobular hypodense lesion in the upper pole of the kidney thought to be a cyst; CTA of the chest demonstrated increase in size of pulmonary nodule within the left upper lobe, alongside multiple irregular pulmonary nodules. - New diagnosis as of 11/20 -- primary unknown, but concern for pulmonary source given numerous nodules and extensive smoking history - Pain management as above - Unsure if patient would be eligible for any salvage chemotherapy options -- will depend on [id number] and risks-benefits of possible adverse effects of these RX. Not interested in radiation RX COPD - Secondary to prolonged and extensive tobacco use - Continue home inhalers - currently satting 91% on room air this AM PAD - Extensive. Status-post AKA of the RLE - Continue ASA, atorvastatin Prediabetes / ?History of Diabetes - Review of records reveals prediabetes, A1c 6.2% in 06/2021, not on any meds - Hold on initiating ACHS glucose checks given patient's recent anorexia -- can consider starting at any time Dysphagia - Daughter reporting patient has had significant difficulties with swallowing lately -- feels like food/pills are getting stuck; not as much with liquids - Speech consult completed: recommending [id number] diet with thin liquids, aspiration and GERD precautions, meds in carrier. No direct treatment at this time. - Boost shakes are ordered Hepatomegaly - Appreciated on exam, +TTP -- likely secondary to metastatic disease - CT-A/P: "Interval development of multiple hypodense lesions seen throughout the liver with the largest in the left hepatic lobe measuring 3.7 cm. This is consistent with metastatic disease." --> Comparison is CT-Chest 08/29 - Significant elevation in ALP with otherwise "normal" LFTs -- ALP may be secondary to osseous mets - PT: 12.1, INR: 1.1, aPTT: 29.5 - Will avoid hepatotoxic medications initially Goals of Care Discussion +Daughter states that in [place] culture, some people prefer not to be told a bout their severe illness and have it managed by others +Daughter also told me she did end up sharing the results with him - Patient's daughter, POA, would like to pursue measures focused on promoting comfort rather than aggressive treatment. - Daughter confirmed that patient is DNR/DNI and that they have discussed this - Case management: see consult note for full details. In summary, patient currently lives alone and daughter would prefer he stay at home with hospice, but referral placed to SNF to possible short stay to increase strength. - Palliative Care: see consult note for full details. In summary, patient's daughter has discussed with him the concern that he has extensive cancer and when it was discussed whether he would like full treatment vs. management of his symptoms, he preferred the latter. Weakness - Significant weakness, anorexia, and fatigue reported by daughter over the last several weeks, in conjunction with pain - Primarily suspect that this is due to his metastatic burden and pain - Work-up otherwise: - Though no clear source of infection on exam, leukocytosis is noted in this regard - Blood culture no growth at 48 hrs, procal 0.85 --> PT evaluation completed: unsafe to go home without 24/7 supervision. Recommending inpatient rehab. --> Case management: waiting to hear back from [facility] regarding acceptance, anticipate response early next week Leukocytosis - WBC 15 on arrival (13.83 yesterday) predominantly with left shift -- neutrophilia but also monocytosis with relative lymphopenia. - Cancer related +/- stress response? Viral infection? Bacteremia? Urine studies clean. - Blood culture NGTD (over 48 hours) - Given reason for presentation being pain and aid with pediatric social worker, weakness being secondary, opt to trend for now and await other studies prior to ABX initiation. Low threshold to initiate broad-spectrum if suspected. Code: DNR/DNI Diet: Regular, easy to chew PPX: SCDs for now Thank you for allowing me to participate in the care of your patient. -Dr. Sammy Deluca PGY1 (2) Metastatic disease: (3) COPD with emphysema: (4) PAD (peripheral artery disease): Plan: (5) Diabetes: (6) Dysphagia: (7) Hepatomegaly: (8) Goals of care, counseling/discussion: (9) Weakness: Plan: (10) Leukocytosis: Admission and Anticipated Discharge Date Admission Date: November 27, 2021 Supervising Physician Co-Signing Physician Notes I personally examined the patient and verified all lemos points of history and exam, discussed case, and agree with decision making with Dr Deluca Seen multiple times today. Asleep and overall appearing comfortable each time. Vitals noted, in general he is resting appears overall comfortable. Breathing unlabored no accessory muscle use good effort. Skin shows no rashes no pallor or icterus. Neuro without focal deficits. Intractable abdominal pain/metastatic disease to liver and ribs On fentanyl patchshe appears more comfortable todayso even though we have to watch closely given his paucity of body fat might preclude absorptionit appears he is absorbing it based on pain looking better today --continue fentanyl patch, prn oxycodone, decadron - follow for improvements. Tobacco abuse disorder COPD- Continue usual home inhalers, breathing appears comfortable on room air. PAD/right lower extremity AKA- Continue aspirin and atorvastatin Diabetes mellitus-most recent A1c was 6.2 on 06/22 Patient/family/Case management working on safe disposition options. anticipate [facility] once bed available Subjective Patient was seen bedside this AM. He states that he is still having pain but it is better today. States that whatever the change that occurred recently has helped but the pain is still present and would like something a little more. [place] interpreter deaf was used for subjective section: Tracey #[id number] Review of Systems Review of Systems: Constitutional: denies fever, chills, fatigue HEENT: denies congestion, sore throat CV: denies chest pain, palpitations Resp: denies shortness of breath, cough GI: denies abdominal pain, nausea, vomiting, constipation, diarrhea : denies pain with urination, change in urinary frequency Neuro: denies new numbness, tingling, weakness Physical Exam Constitutional: + thin and + frail appearing Neck: normal visual inspection Respiratory: normal respiratory effort; no labored breathing Cardiovascular: RRR, no murmur, no edema Gastrointestinal (Abdomen): Inspection/Auscultation: abdomen not distended Percussion/Palpation: + hepatomegaly Neurologic: awake Results & Data Results & Data ([facility]) Vital Signs (Past 12 Hours) Vital Signs Temp Pulse Resp BP Pulse Ox O2 Del Method 11/30/21 20:00 Room Air 11/30/21 22:20 36.7 C 79 16 101/52 L 93 Room Air Resident Activity Tracking Resident Involvement: Resident Care Provided Care Provided: Adult Hospital Medicine
[2021-12-01] MEDS: DICLOFENAC SOD 1% GEL 100 GM TUBE EXT SCH ×6 (08:17→20:14)
[2021-12-01] MEDS: ATORVASTATIN 10 MG TAB PO SCH ×2 (08:17→14:40)
[2021-12-01] MEDS: ASPIRIN 81 MG ECTAB PO SCH ×2 (08:17→14:40)
[2021-12-01] MEDS: FLUTICASONE FUROATE 100MCG 14 PUFFS/INHALER INH SCH (08:20)
[2021-12-01] MEDS: UMECLIDINIUM/VILANTEROL 62.5/25MCG 7 PUFFS/INHALER INH SCH (08:20)
[2021-12-01] MEDS: METOPROLOL TARTRATE 25 MG TAB PO SCH ×3 (08:21→20:12)
[2021-12-01] MEDS: GABAPENTIN 100 MG CAP PO SCH ×4 (08:21→20:02)
[2021-12-01] MEDS: PANTOprazole 40 MG TAB PO SCH ×2 (08:22→14:41)
[2021-12-01] MEDS: CHECK fentaNYL PATCH PLACEMENT SCH ×3 (08:24→23:07)
[2021-12-01] MEDS: amLODIPine BESYLATE 5 MG TAB PO SCH (11:35)
[2021-12-01] MEDS: fentaNYL 25 MCG/HR TDSY TD SCH (14:36)
[2021-12-01] MEDS: dexAMETHasone 4 MG in SYRINGE 0 ML IV SCH (17:45)
--- NOTE | 2021-12-01 17:56 | Billing Data ---
Date of Service December 01, 2021 Coding Level of Care Code 65188 Subseq Hosp Care Lvl 2
[2021-12-02 06:36] LABS: Hematocrit (blood only) 25.3 % (40.1-51.0); Hemoglobin 8.4 g/dl (14.0-18.0); Mean Corpuscular Hemoglobin 27.6 pg (25.0-34.0); Mean Corpuscular Hgb Conc 33.2 g/dL (32.0-36.0); Mean Corpuscular Volume 83.2 fL (80.0-100.0); Mean Platelet Volume 10.6 fL (9.4-12.4); Platelet Count 304 K/uL (130-400); RDW Coefficient of Variation 15.9 % (11.5-14.5); RDW Standard Deviation 48.1 fL (36.4-46.3); Red Blood Count 3.04 M/uL (4.63-6.08); White Blood Count 14.98 K/ul (4.8-10.8)
[2021-12-02 06:55] LABS: BUN Creatinine Ratio 40.7 (10-20); Calcium 8.1 mg/dl (8.5-10.1); Creatinine Clr Calc Pharmacy 40.6 ml/min; Est GFR (African American) 94.5 ml/min; Est GFR (Non-African American) 81.6 ml/min; Potassium 4.9 mmol/L (3.5-5.1)
[2021-12-02 07:12] LABS: Basophils # (auto) 0.01 K/uL (0-0.2); Basophils % (auto) 0.1 %; Immature Granulocytes # (auto) 0.11 K/uL (0.00-0.02); Immature Granulocytes % (auto) 0.7 %; Lymphocytes # (auto) 0.88 K/uL (1.2-3.4); Lymphocytes % (auto) 5.9 %; Monocytes % (auto) 2.7 %; Neutrophils # (auto) 13.58 K/uL (1.4-6.5); Neutrophils % (auto) 90.6 %
--- NOTE | 2021-12-02 07:14 | Hospitalist Progress Note ---
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 He requires hospitalization for management of his pain and clarification of his/his family's goals of care. Intractable Pain - Suspect primarily related to metastatic disease in the liver and ribs -- this is primarily where he is reporting his pain and is reproducible on exam (notable hepatomegaly) - Current home regimen: oxycodone 7.5mg q8h PRN (though daughter reports he has trouble taking this because of his dysphagia) - Current medications trialed include: -- Oxycodone syrup 7.5mg q8h KEYLA -- Toradol 10mg q8h KEYLA (optimally not to be continued over 5 days) -- Dilaudid 0.25mg IV for breakthrough pain -- Continue home gabapentin for neuropathic pain (phantom limb) ; likely could increase if needed -- Hold on scheduling APAP given unclear burden of hepatic disease at this time -- May wish to consider initiation of muscle relaxants or Valium if tolerated / not oversedated by above medications - Increased Fentanyl transdermal patch from 12.5 to 25 mcg yesterday due to the patient stating it is helping but needs a little more, may take 24+hrs to determine if beneficial - Per palliative care recommendation: started 8mg IV q24 dexamethasone (can adjust dose based on response) to help decrease inflammation from liver mets/contributing to pain - Continue PPI given scheduled NSAID Metastatic Disease - In the context of significant heavy tobacco use, recent weight loss, worsening pain, anorexia over the past several months - ED visit 11/20: CT-A/P demonstrated interval development of multiple hypodense lesions within the liver consistent with metastatic disease, possible early metastatic changes within the sixth and seventh ribs, 6.3 lobular hypodense lesion in the upper pole of the kidney thought to be a cyst; CTA of the chest demonstrated increase in size of pulmonary nodule within the left upper lobe, alongside multiple irregular pulmonary nodules. - New diagnosis as of 11/20 -- primary unknown, but concern for pulmonary source given numerous nodules and extensive smoking history - Pain management as above - Unsure if patient would be eligible for any salvage chemotherapy options -- will depend on [id number] and risks-benefits of possible adverse effects of these RX. Not interested in radiation RX COPD - Secondary to prolonged and extensive tobacco use - Continue home inhalers - currently satting 96% on room air this AM PAD - Extensive. Status-post AKA of the RLE - Continue ASA, atorvastatin Prediabetes / ?History of Diabetes - Review of records reveals prediabetes, A1c 6.2% in 06/2021, not on any meds - Hold on initiating ACHS glucose checks given patient's recent anorexia -- can consider starting at any time Dysphagia - Daughter reporting patient has had significant difficulties with swallowing lately -- feels like food/pills are getting stuck; not as much with liquids - Speech consult completed: recommending [id number] diet with thin liquids, aspiration and GERD precautions, meds in carrier. No direct treatment at this time. - Boost shakes are ordered Hepatomegaly - Appreciated on exam, +TTP -- likely secondary to metastatic disease - CT-A/P: "Interval development of multiple hypodense lesions seen throughout the liver with the largest in the left hepatic lobe measuring 3.7 cm. This is consistent with metastatic disease." --> Comparison is CT-Chest 08/29 - Significant elevation in ALP with otherwise "normal" LFTs -- ALP may be secondary to osseous mets - PT: 12.1, INR: 1.1, aPTT: 29.5 - Will avoid hepatotoxic medications initially Goals of Care Discussion +Daughter states that in [place] culture, some people prefer not to be told about their severe illness and have it managed by others +Daughter also told me she did end up sharing the results with him - Patient's daughter, POA, would like to pursue measures focused on promoting comfort rather than aggressive treatment. - Daughter confirmed that patient is DNR/DNI and that they have discussed this - Case management: see consult note for full details. In summary, patient currently lives alone and daughter would prefer he stay at home with hospice, but referral placed to SNF to possible short stay to increase strength. - Palliative Care: see consult note for full details. In summary, patient's daughter has discussed with him the concern that he has extensive cancer and when it was discussed whether he would like full treatment vs. management of his symptoms, he preferred the latter. Weakness - Significant weakness, anorexia, and fatigue reported by daughter over the last several weeks, in conjunction with pain - Primarily suspect that this is due to his metastatic burden and pain - Work-up otherwise: - Though no clear source of infection on exam, leukocytosis is noted in this regard - Blood culture no growth at 48 hrs, procal 0.85 --> PT evaluation completed: unsafe to go home without 24/7 supervision. Recommending inpatient rehab. --> Case management: waiting to hear back from [facility] regarding acceptance, anticipate response early next week. Most likely will go on 12/03. Leukocytosis - WBC 15 on arrival (15 yesterday) predominantly with left shift -- neutrophilia but also monocytosis with relative lymphopenia. - Cancer related +/- stress response? Viral infection? Bacteremia? Urine studies clean. - Blood culture NGTD (over 48 hours) - Given reason for presentation being pain and aid with social worker masters, weakness being secondary, opt to trend for now and await other studies prior to ABX initiation. Low threshold to initiate broad-spectrum if suspected. Code: DNR/DNI Diet: Regular, easy to chew PPX: SCDs for now Thank you for allowing me to participate in the care of your patient. -Dr. Sammy Deluca PGY1 (2) Metastatic disease: (3) COPD with emphysema: (4) PAD (peripheral artery disease): Plan: (5) Diabetes: (6) Dysphagia: (7) Hepatomegaly: (8) Goals of care, counseling/discussion: (9) Weakness: Plan: (10) Leukocytosis: Admission and Anticipated Discharge Date Admission Date: November 27, 2021 Supervising Physician Co-Signing Physician Notes I personally examined the patient and verified all lemos points of history and exam, discussed case, and agree with decision making with Dr Deluca Son-in-law present at the bedside. Offered to get engineering specialist iPad, but they preferred son-in-law, which was quite reasonable. Pain still not greatnotes a lot of it is bone pain in his back and hips. Discussed plan. Vitals noted, in general he is awake and alert pleasant appears mildly restless. He has bilateral paraspinal hypertonicity but no reproducible pain to palpation on paraspinals or on the spine itself. He is very thin and emaciated. No focal neurodeficits. Breathing unlabored no accessory muscle use good effort. Skin shows no rashes no pallor or icterus Intractable abdominal pain/metastatic disease to liver and ribs On fentanyl patchshe appears more comfortable todayso even though we have to watch closely given his paucity of body fat might preclude absorptionhowever, the first day or 2 after initiating fentanyl patch he appeared much more comfortablefor now escalate dose. If it seems like we are running into trouble where he is not really getting enough relief, then consider a lateral move to a comparable dose of OxyContin. For now increase patch to 25 mcgI suspected with his need for oxycodone prior to initiating the patch 12 mics may be a bit lowso the escalation does seem to fit with his clinical scenario. Discussed with patient and son-in-law that even after discharge to SNF, ongoing titration of pain medications is to be expected. --continue fentanyl patch, prn oxycodone, decadron - follow for improvements. Tobacco abuse disorder COPD- Continue usual home inhalers, breathing appears comfortable on room air. PAD/right lower extremity AKA- Continue aspirin and atorvastatin Diabetes mellitus-most recent A1c was 6.2 on 06/22 Severe calorie/moderate to severe protein malnutrition notedBMI 16.2 (although some of this is artificial due to R BKA) Patient/family/Case management working on safe disposition options. anticipate [facility] once bed available Subjective Patient was seen bedside this AM. No issues or concerns at this time. Physical Exam Constitutional: + thin and + frail appearing Neck: normal visual inspection Respiratory: normal respiratory effort; no labored breathing Cardiovascular: RRR, no murmur, no edema Gastrointestinal (Abdomen): Inspection/Auscultation: abdomen not distended Percussion/Palpation: + hepatomegaly Neurologic: awake Results & Data Results & Data ([facility]) Vital Signs (Past 12 Hours) Vital Signs Temp Pulse Resp BP Pulse Ox O2 Del Method 12/02/21 00:17 Room Air 12/01/21 22:01 36.5 C 64 16 102/53 L 96 Room Air Resident Activity Tracking Resident Involvement: Resident Care Provided Care Provided: Adult Hospital Medicine
[2021-12-02] MEDS: CHECK fentaNYL PATCH PLACEMENT SCH ×2 (08:05→16:54)
[2021-12-02] MEDS: ASPIRIN 81 MG ECTAB PO SCH (08:18)
[2021-12-02] MEDS: GABAPENTIN 100 MG CAP PO SCH ×3 (08:18→20:26)
[2021-12-02] MEDS: PANTOprazole 40 MG TAB PO SCH (08:18)
[2021-12-02] MEDS: FLUTICASONE FUROATE 100MCG 14 PUFFS/INHALER INH SCH (08:19)
[2021-12-02] MEDS: DICLOFENAC SOD 1% GEL 100 GM TUBE EXT SCH ×4 (08:19→20:26)
[2021-12-02] MEDS: ATORVASTATIN 10 MG TAB PO SCH (08:20)
[2021-12-02] MEDS: UMECLIDINIUM/VILANTEROL 62.5/25MCG 7 PUFFS/INHALER INH SCH (08:20)
[2021-12-02] MEDS: METOPROLOL TARTRATE 25 MG TAB PO SCH ×2 (08:20→20:26)
[2021-12-02] MEDS: oxyCODONE HCL SOLN 5 MG/5 ML UDC PO PRN ×2 (08:26→17:00)
[2021-12-02] MEDS: amLODIPine BESYLATE 5 MG TAB PO SCH (13:00)
[2021-12-02] MEDS: dexAMETHasone 4 MG in SYRINGE 0 ML IV SCH (16:53)
--- NOTE | 2021-12-02 19:36 | Billing Data ---
Date of Service December 02, 2021 Coding Level of Care Code 03974 Subseq Hosp Care Lvl 3
[2021-12-03] MEDS: CHECK fentaNYL PATCH PLACEMENT SCH ×3 (01:34→16:52)
[2021-12-03] MEDS: oxyCODONE HCL SOLN 5 MG/5 ML UDC PO PRN ×3 (05:15→20:44)
--- NOTE | 2021-12-03 07:51 | Hospitalist Progress Note ---
Date of Service December 03, 2021 Assessment & Plan (1) Intractable abdominal pain: Plan: This is a 76-year-old gentleman with a history of COPD, diabetes, peripheral arterial disease s/p AKA on the right complicated by phantom pain, left renal mass, metastatic disease who presented to [facility] for evaluation of abdominal and bone-related pain likely from metastatic cancer of unknown primary (though pulmonary highly suspected). His pain is now controlled and he is medically stable for discharge to a longterm facility - waiting on placement. Intractable Pain - Suspect primarily related to metastatic disease in the liver and ribs -- this is primarily where he is reporting his pain and is reproducible on exam (notable hepatomegaly) - Current home regimen: oxycodone 7.5mg q8h PRN (though daughter reports he has trouble taking this because of his dysphagia) - Current medications trialed include: -- Oxycodone syrup 7.5mg q8h KEYLA -- Toradol 10mg q8h KEYLA (optimally not to be continued over 5 days) -- Dilaudid 0.25mg IV for breakthrough pain -- Continue home gabapentin for neuropathic pain (phantom limb) ; likely could increase if needed -- Hold on scheduling APAP given unclear burden of hepatic disease at this time -- May wish to consider initiation of muscle relaxants or Valium if tolerated / not oversedated by above medications - Fentanyl transdermal patch 25 mcg. - Per palliative care recommendation: started 8mg IV q24 dexamethasone (can adjust dose based on response) to help decrease inflammation from liver mets/contributing to pain - Continue PPI given scheduled NSAID - Start bowel regimen to avoid constipation 2/2 opioid use - colace Metastatic Disease - In the context of significant heavy tobacco use, recent weight loss, worsening pain, anorexia over the past several months - ED visit 11/20: CT-A/P demonstrated interval development of multiple hypodense lesions within the liver consistent with metastatic disease, possible early metastatic changes within the sixth and seventh ribs, 6.3 lobular hypodense lesion in the upper pole of the kidney thought to be a cyst; CTA of the chest demonstrated increase in size of pulmonary nodule within the left upper lobe, alongside multiple irregular pulmonary nodules. - New diagnosis as of 11/20 -- primary unknown, but concern for pulmonary source given numerous nodules and extensive smoking history - Pain management as above - Unsure if patient would be eligible for any salvage chemotherapy options -- will depend on [id number] and risks-benefits of possible adverse effects of these RX. Not interested in radiation RX COPD - Secondary to prolonged and extensive tobacco use - Continue home inhalers - satting well on room air PAD - Extensive. Status-post AKA of the RLE - Continue ASA, atorvastatin Prediabetes / ?History of Diabetes - Review of records reveals prediabetes, A1c 6.2% in 06/2021, not on any meds - Hold on initiating ACHS glucose checks given patient's recent anorexia -- can consider starting at any time Dysphagia - Daughter reporting patient has had significant difficulties with swallowing lately -- feels like food/pills are getting stuck; not as much with liquids - Speech consult completed: recommending [id number] diet with thin liquids, aspiration and GERD precautions, meds in carrier. No direct treatment at this time. - Boost shakes are ordered Hepatomegaly - Appreciated on exam, +TTP -- likely secondary to metastatic disease - CT-A/P: "Interval development of multiple hypodense lesions seen throughout the liver with the largest in the left hepatic lobe measuring 3.7 cm. This is consistent with metastatic disease." --> Comparison is CT-Chest 08/29 - Significant elevation in ALP with otherwise "normal" LFTs -- ALP may be secondary to osseous mets - PT: 12.1, INR: 1.1, aPTT: 29.5 - Will avoid hepatotoxic medications initially Goals of Care Discussion +Daughter states that in [place] culture, some people prefer not to be told about their severe illness and have it managed by others +Daughter also told me she did end up sharing the results with him - Patient's daughter, POGuillermina, would like to pursue measures focused on promoting comfort rather than aggressive treatment. - Daughter confirmed that patient is DNR/DNI and that they have discussed this - Case management: see consult note for full details. In summary, patient currently lives alone and daughter would prefer he stay at home with hospice, but referral placed to SNF to possible short stay to increase strength. - Palliative Care: see consult note for full details. In summary, patient's daughter has discussed with him the concern that he has extensive cancer and when it was discussed whether he would like full treatment vs. management of his symptoms, he preferred the latter. Weakness - Significant weakness, anorexia, and fatigue reported by daughter over the last several weeks, in conjunction with pain - Primarily suspect that this is due to his metastatic burden and pain - Work-up otherwise: - Though no clear source of infection on exam, leukocytosis is noted in this regard - Blood culture no growth at 48 hrs, procal 0.85 --> PT evaluation completed: unsafe to go home without 24/7 supervision. Recommending inpatient rehab. --> Case management: waiting to hear back from [facility] regarding acceptance, anticipate response early next week. Most likely will go on 12/03. Leukocytosis - WBC 15 on arrival (15 yesterday) predominantly with left shift -- neutrophilia but also monocytosis with relative lymphopenia. - Cancer related +/- stress response? Viral infection? Bacteremia? Urine studies clean. 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 Low threshold to initiate broad-spectrum if suspected. Code: DNR/DNI Diet: Regular, easy to chew PPX: SCDs for now dispo: med surg, awaiting placement (2) Metastatic disease: (3) COPD with emphysema: (4) PAD (peripheral artery disease): Plan: (5) Diabetes: (6) Dysphagia: (7) Hepatomegaly: (8) Goals of care, counseling/discussion: (9) Weakness: Plan: (10) Leukocytosis: Admission and Anticipated Discharge Date Admission Date: November 27, 2021 Supervising Physician Co-Signing Physician Notes I personally examined the patient and verified all lemos points of history and exam, discussed case, and agree with decision making with Dr Marsh. Conversation is limited secondary to him being [place]-speaking. Board Stacker was used and patient throughout interview states that he is "normal." With that being said, he did have a lot of grimacing when moving his right lower extremity at the site of his above-knee amputation. 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 Is currently on oxycodone 7.5 mg every 6 hours so we decided to bump this up to 10 mg in an effort for further pain control. Bowel regimen has been modified and patient denies any constipation. We will await hospice discharge and placement. Continue monitoring for now. Subjective Patient notes that his pain is typical. He denies any difficulty keeping food down or breathing. History was obtained using sales representative gas service [id number] Review of Systems Review of Systems: See above. Physical Exam Physical Exam: frail appearing male in NAD, does not appear to be in pain, no increased work of breathing, clinically well perfused, RRR Results & Data Results & [facility] ([facility]) Vital Signs (Past 12 Hours) Vital Signs Temp Pulse Resp BP Pulse Ox O2 Del Method 12/02/21 20:35 Room Air 12/02/21 21:37 36.3 C L 71 15 121/54 L 98 Room Air Resident Activity Tracking Resident Involvement: Resident Care Provided Care Provided: Adult Hospital Medicine
[2021-12-03] MEDS: METOPROLOL TARTRATE 25 MG TAB PO SCH ×2 (09:20→20:47)
[2021-12-03] MEDS: ATORVASTATIN 10 MG TAB PO SCH (09:20)
[2021-12-03] MEDS: ASPIRIN 81 MG ECTAB PO SCH (09:20)
[2021-12-03] MEDS: GABAPENTIN 100 MG CAP PO SCH ×3 (09:20→20:46)
[2021-12-03] MEDS: FLUTICASONE FUROATE 100MCG 14 PUFFS/INHALER INH SCH (09:20)
[2021-12-03] MEDS: PANTOprazole 40 MG TAB PO SCH (09:20)
[2021-12-03] MEDS: UMECLIDINIUM/VILANTEROL 62.5/25MCG 7 PUFFS/INHALER INH SCH (09:21)
[2021-12-03] MEDS: DICLOFENAC SOD 1% GEL 100 GM TUBE EXT SCH ×4 (09:21→20:46)
[2021-12-03] MEDS: amLODIPine BESYLATE 5 MG TAB PO SCH (12:34)
[2021-12-03] MEDS: dexAMETHasone 4 MG in SYRINGE 0 ML IV SCH (16:52)
[2021-12-03] MEDS: DOCUSATE SODIUM SYRUP 100 MG/10 ML UDC PO SCH (22:19)
--- NOTE | 2021-12-04 06:46 | Hospitalist Progress Note ---
Date of Service December 04, 2021 Assessment & Plan (1) Intractable abdominal pain: Plan: This is a 76-year-old gentleman with a history of COPD, diabetes, peripheral arterial disease s/p AKA on the right complicated by phantom pain, left renal mass, metastatic disease who presented to [facility] for evaluation of abdominal and bone-related pain likely from metastatic cancer of unknown primary (though pulmonary highly suspected). His pain is now controlled and he is medically stable for discharge to a halfway facility - waiting on placement. Intractable Pain - Suspect primarily related to metastatic disease in the liver and ribs -- this is primarily where he is reporting his pain and is reproducible on exam (notable hepatomegaly) - Current home regimen: oxycodone 7.5mg q8h PRN (though daughter reports he has trouble taking this because of his dysphagia) - Current medications trialed include: -- Oxycodone syrup 7.5mg q4h PRN -- Dilaudid 0.25mg IV for breakthrough pain -- Continue home gabapentin for neuropathic pain (phantom limb); likely could increase if needed -- Hold on scheduling APAP given unclear burden of hepatic disease at this time -- May wish to consider initiation of muscle relaxants or Valium if tolerated / not oversedated by above medications - Fentanyl transdermal patch 25 mcg. - Per palliative care recommendation: started 8mg IV q24 dexamethasone (can adjust dose based on response) to help decrease inflammation from liver mets/con tributing to pain - Continue PPI given scheduled NSAID - Start bowel regimen to avoid constipation 2/2 opioid use - colace --> added on 5 mg oxycodone HS scheduled to help with sleep and improve comfort of the patient. Metastatic Disease - In the context of significant heavy tobacco use, recent weight loss, worsening pain, anorexia over the past several months - ED visit 11/20: CT-A/P demonstrated interval development of multiple hypodense lesions within the liver consistent with metastatic disease, possible early metastatic changes within the sixth and seventh ribs, 6.3 lobular hypodense lesion in the upper pole of the kidney thought to be a cyst; CTA of the chest demonstrated increase in size of pulmonary nodule within the left upper lobe, alongside multiple irregular pulmonary nodules. - New diagnosis as of 11/20 -- primary unknown, but concern for pulmonary source given numerous nodules and extensive smoking history - Pain management as above - Unsure if patient would be eligible for any salvage chemotherapy options -- will depend on [id number] and risks-benefits of possible adverse effects of these RX. Not interested in radiation RX COPD - Secondary to prolonged and extensive tobacco use - Continue home inhalers - satting well on room air PAD - Extensive. Status-post AKA of the RLE - Continue ASA, atorvastatin Prediabetes / ?History of Diabetes - Review of records reveals prediabetes, A1c 6.2% in 06/2021, not on any meds - Hold on initiating ACHS glucose checks given patient's recent anorexia -- can consider starting at any time Dysphagia - Daughter reporting patient has had significant difficulties with swallowing lately -- feels like food/pills are getting stuck; not as much with liquids - Speech consult completed: recommending [id number] diet with thin liquids, aspiration and GERD precautions, meds in carrier. No direct treatment at this time. - Boost shakes are ordered Hepatomegaly - Appreciated on exam, likely secondary to metastatic disease - CT-A/P: "Interval development of multiple hypodense lesions seen throughout the liver with the largest in the left hepatic lobe measuring 3.7 cm. This is consistent with metastatic disease." --> Comparison is CT-Chest 08/29 - Significant elevation in ALP with otherwise "normal" LFTs -- ALP may be secondary to osseous mets - PT: 12.1, INR: 1.1, aPTT: 29.5 - Will avoid hepatotoxic medications initially Goals of Care Discussion +Daughter states that in [place] culture, some people prefer not to be told about their severe illness and have it managed by others +Daughter also told me she did end up sharing the results with him - Patient's daughter, POGuillermina, would like to pursue measures focused on promoting comfort rather than aggressive treatment. - Daughter confirmed that patient is DNR/DNI and that they have discussed this - Case management: see consult note for full details. In summary, patient currently lives alone and daughter would prefer he stay at home with hospice, but referral placed to SNF to possible short stay to increase strength. - Palliative Care: see consult note for full details. In summary, patient's daughter has discussed with him the concern that he has extensive cancer and when it was discussed whether he would like full treatment vs. management of his symptoms, he preferred the latter. Weakness - Significant weakness, anorexia, and fatigue reported by daughter over the last several weeks, in conjunction with pain - Primarily suspect that this is due to his metastatic burden and pain - Work-up otherwise: - Though no clear source of infection on exam, leukocytosis is noted in this regard - Blood culture no growth at 48 hrs, procal 0.85 --> PT evaluation completed: unsafe to go home without 24/7 supervision. Recommending inpatient rehab. --> Case management: waiting to hear back from [facility] regarding acceptance, anticipate response early next week. Leukocytosis - WBC 15 on arrival (15 yesterday) predominantly with left shift -- neutrophilia but also monocytosis with relative lymphopenia. - Cancer related +/- stress response? Viral infection? Bacteremia? Urine studies clean. - Blood culture NGTD (over 48 hours) - Given reason for presentation being pain and aid with social media manager, weakness being secondary, opt to trend for now and await other studies prior to ABX initiation. Low threshold to initiate broad-spectrum if suspected. Code: DNR/DNI Diet: Regular, easy to chew PPX: SCDs for now dispo: med surg, awaiting placement at [facility], Mar from also reached out to several other places looking for beds as [facility] does not have the staff to take him immediately Contacted daughter 12/04, she was unable to talk as she was in class. (2) Metastatic disease: (3) COPD with emphysema: (4) PAD (peripheral artery disease): Plan: (5) Diabetes: (6) Dysphagia: (7) Hepatomegaly: (8) Goals of care, counseling/discussion: (9) Weakness: Plan: (10) Leukocytosis: Admission and Anticipated Discharge Date Admission Date: November 27, 2021 Supervising Physician Co-Signing Physician Notes I personally examined the patient and verified all lemos points of history and exam, discussed case, and agree with decision making with Dr Marsh. Conversation is limited secondary to him being Lebanese-speaking. Sanitation Truck Driver was used and patient throughout interview states that he is "normal." With that being said, he did have a lot of grimacing when moving his right lower extremity at the site of his above-knee amputation. 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 Is currently on oxycodone 7.5 mg every 6 hours so we decided to bump this up to 10 mg in an effort for further pain control. Bowel regimen has been modified and patient denies any constipation. We will wait hospice discharge and placement. Continue monitoring for now. Subjective History limited. Patient states that his pain is normal. He notes having difficulty sleeping normally typically because of his pain. Desk Pen Set Assembler: [id number] Review of Systems Review of Systems: See above. Physical Exam Physical Exam: frail appearing male in NAD, does not appear to be in pain, no increased work of breathing, clinically well perfused Results & Data Results & Data ([facility]) Vital Signs (Past 12 Hours) Vital Signs Temp Pulse Resp BP Pulse Ox O2 Del Method 12/03/21 20:00 Room Air 12/03/21 21:39 36.8 C 67 14 107/55 L 96 Room Air Laboratory Results 12/04/21 12/04/21 Range/Units 07:08 07:08 WBC 14.12 H (4.8-10.8) K/ul RBC 3.31 L (4.63-6.08) M/uL Hgb 9.1 L (14.0-18.0) g/dl Hct 27.7 L (40.1-51.0) % MCV 83.7 (80.0-100.0) fL MCH 27.5 (25.0-34.0) pg MCHC 32.9 (32.0-36.0) g/dL RDW Std Deviation 49.9 H (36.4-46.3) fL RDW Coeff of Cee 16.3 H (11.5-14.5) % Plt Count 283 (130-400) K/uL MPV 10.6 (9.4-12.4) fL Immature Gran % (Auto) 0.8 % Neut % (Auto) 86.2 % Lymph % (Auto) 6.7 % [place] % (Auto) 6.2 % Eos % (Auto) 0.0 % Baso % (Auto) 0.1 % Neut # (Auto) 12.17 H (1.4-6.5) K/uL Lymph # (Auto) 0.95 L (1.2-3.4) K/uL [place] # (Auto) 0.87 H (0.24-0.82) K/uL Eos # (Auto) 0.00 (0-0.50) K/uL Baso # (Auto) 0.01 (0-0.2) K/uL Immature Gran # (Auto) 0.12 H (0.00-0.02) K/uL Sodium 132 L (136-145) mmol/L Potassium 4.6 (3.5-5.1) mmol/L Chloride 100 (98-107) mmol/L Carbon Dioxide 30 (21-32) mmol/L Anion Gap 2 L (3-11) BUN 26 H (6-23) mg/dl Creatinine 0.86 (0.6-1.4) mg/dl Est Cr Clr Drug Dosing 43.0 ml/min Est GFR ( Amer) 97.6 ml/min Est GFR (Non-Af Amer) 84.2 ml/min BUN/Creatinine Ratio 30.2 H (10-20) Glucose 131 H (70-99(Fasting)) mg/dl Calcium 8.2 L (8.5-10.1) mg/dl Diagnostic Findings No new imaging. Resident Activity Tracking Resident Involvement: Resident Care Provided Care Provided: Adult Hospital Medicine
[2021-12-04 07:40] LABS: Basophils # (auto) 0.01 K/uL (0-0.2); Basophils % (auto) 0.1 %; Hematocrit (blood only) 27.7 % (40.1-51.0); Hemoglobin 9.1 g/dl (14.0-18.0); Immature Granulocytes # (auto) 0.12 K/uL (0.00-0.02); Immature Granulocytes % (auto) 0.8 %; Lymphocytes # (auto) 0.95 K/uL (1.2-3.4); Lymphocytes % (auto) 6.7 %; Mean Corpuscular Hemoglobin 27.5 pg (25.0-34.0); Mean Corpuscular Hgb Conc 32.9 g/dL (32.0-36.0); Mean Corpuscular Volume 83.7 fL (80.0-100.0); Mean Platelet Volume 10.6 fL (9.4-12.4); Monocytes # (auto) 0.87 K/uL (0.24-0.82); Monocytes % (auto) 6.2 %; Neutrophils # (auto) 12.17 K/uL (1.4-6.5); Neutrophils % (auto) 86.2 %; Platelet Count 283 K/uL (130-400); RDW Coefficient of Variation 16.3 % (11.5-14.5); RDW Standard Deviation 49.9 fL (36.4-46.3); Red Blood Count 3.31 M/uL (4.63-6.08); White Blood Count 14.12 K/ul (4.8-10.8)
[2021-12-04 08:14] LABS: BUN Creatinine Ratio 30.2 (10-20); Calcium 8.2 mg/dl (8.5-10.1); Est GFR (African American) 97.6 ml/min; Est GFR (Non-African American) 84.2 ml/min; Potassium 4.6 mmol/L (3.5-5.1)
[2021-12-04] MEDS: CHECK fentaNYL PATCH PLACEMENT SCH ×4 (08:23→23:33)
[2021-12-04] MEDS: oxyCODONE HCL SOLN 5 MG/5 ML UDC PO PRN ×2 (08:30→19:26)
[2021-12-04] MEDS: DICLOFENAC SOD 1% GEL 100 GM TUBE EXT SCH ×4 (08:43→20:24)
[2021-12-04] MEDS: ASPIRIN 81 MG ECTAB PO SCH (08:45)
[2021-12-04] MEDS: GABAPENTIN 100 MG CAP PO SCH ×3 (08:46→20:24)
[2021-12-04] MEDS: PANTOprazole 40 MG TAB PO SCH (08:46)
[2021-12-04] MEDS: ATORVASTATIN 10 MG TAB PO SCH (08:46)
[2021-12-04] MEDS: UMECLIDINIUM/VILANTEROL 62.5/25MCG 7 PUFFS/INHALER INH SCH (08:47)
[2021-12-04] MEDS: FLUTICASONE FUROATE 100MCG 14 PUFFS/INHALER INH SCH (08:47)
[2021-12-04] MEDS: METOPROLOL TARTRATE 25 MG TAB PO SCH ×3 (08:47→20:25)
[2021-12-04] MEDS: DOCUSATE SODIUM SYRUP 100 MG/10 ML UDC PO SCH ×2 (10:55→20:24)
[2021-12-04] MEDS: fentaNYL 25 MCG/HR TDSY TD SCH (12:25)
[2021-12-04] MEDS: amLODIPine BESYLATE 5 MG TAB PO SCH (13:37)
[2021-12-04] MEDS: dexAMETHasone 4 MG in SYRINGE 0 ML IV SCH (18:24)
[2021-12-04] MEDS: oxyCODONE HCL IR 5 MG TAB (IMMEDIATE RELEASE) PO SCH (20:24)
[2021-12-05 07:00] LABS: Hemoglobin 8.4 g/dl (14.0-18.0); Mean Corpuscular Hemoglobin 27.9 pg (25.0-34.0); Mean Corpuscular Hgb Conc 33.6 g/dL (32.0-36.0); Mean Corpuscular Volume 83.1 fL (80.0-100.0); Mean Platelet Volume 10.5 fL (9.4-12.4); Platelet Count 217 K/uL (130-400); RDW Coefficient of Variation 16.9 % (11.5-14.5); RDW Standard Deviation 50.9 fL (36.4-46.3); Red Blood Count 3.01 M/uL (4.63-6.08); White Blood Count 16.79 K/ul (4.8-10.8)
--- NOTE | 2021-12-05 07:09 | Hospitalist Progress Note ---
Date of Service December 05, 2021 Assessment & Plan (1) Intractable abdominal pain: Plan: This is a 76-year-old gentleman with a history of COPD, diabetes, peripheral arterial disease s/p AKA on the right complicated by phantom pain, left renal mass, metastatic disease who presented to [facility] for evaluation of abdominal and bone-related pain likely from metastatic cancer of unknown primary (though pulmonary highly suspected). His pain is now controlled and he is medically stable for discharge to a alf facility - waiting on placement. Patient appears more somnolent at present - could be related to additional dose of oxycodone or progression of disease burden. Continue to monitor. Intractable Pain - Suspect primarily related to metastatic disease in the liver and ribs -- this is primarily where he is reporting his pain and is reproducible on exam (notable hepatomegaly) - Current home regimen: oxycodone 7.5mg q8h PRN (though daughter reports he has trouble taking this because of his dysphagia) - Current medications trialed include: -- Oxycodone syrup 7.5mg q4h PRN -- Dilaudid 0.25mg IV for breakthrough pain -- Continue home gabapentin for neuropathic pain (phantom limb); likely could increase if needed -- Hold on scheduling APAP given unclear burden of hepatic disease at this time -- May wish to consider initiation of muscle relaxants or Valium if tolerated / not oversedated by above medications - Fentanyl transdermal patch 25 mcg. - Per palliative care recommendation: started 8mg IV q24 dexamethasone (can adjust dose based on response) to help decrease inflammation from liver mets/contributing to pain - Continue PPI given scheduled NSAID - Start bowel regimen to avoid constipation 2/2 opioid use - colace --> added on 5 mg oxycodone HS scheduled to help with sleep and improve comfort of the patient. Metastatic Disease - In the context of significant heavy tobacco use, recent weight loss, worsening pain, anorexia over the past several months - ED visit 11/20: CT-A/P demonstrated interval development of multiple hypodense lesions within the liver consistent with metastatic disease, possible early metastatic changes within the sixth and seventh ribs, 6.3 lobular hypodense lesion in the upper pole of the kidney thought to be a cyst; CTA of the chest demonstrated increase in size of pulmonary nodule within the left upper lobe, alongside multiple irregular pulmonary nodules. - New diagnosis as of 11/20 -- primary unknown, but concern for pulmonary source given numerous nodules and extensive smoking history - Pain management as above - Unsure if patient would be eligible for any salvage chemotherapy options -- will depend on [id number] and risks-benefits of possible adverse effects of these RX. Not interested in radiation RX COPD - Secondary to prolonged and extensive tobacco use - Continue home inhalers - satting well on room air PAD - Extensive. Status-post AKA of the RLE - Continue ASA, atorvastatin Prediabetes / ?History of Diabetes - Review of records reveals prediabetes, A1c 6.2% in 06/2021, not on any meds - Hold on initiating ACHS glucose checks given patient's recent anorexia -- can consider starting at any time Dysphagia - Daughter reporting patient has had significant difficulties with swallowing lately -- feels like food/pills are getting stuck; not as much with liquids - Speech consult completed: recommending [id number] diet with thin liquids, aspiration and GERD precautions, meds in carrier. No direct treatment at this time. - Boost shakes are ordered Hepatomegaly - Appreciated on exam, likely secondary to metastatic disease - CT-A/P: "Interval development of multiple hypodense lesions seen throughout the liver with the largest in the left hepatic lobe measuring 3.7 cm. This is consistent with metastatic disease." --> Comparison is CT-Chest 08/29 - Significant elevation in ALP with otherwise "normal" LFTs -- ALP may be secondary to osseous mets - PT: 12.1, INR: 1.1, aPTT: 29.5 - Will avoid hepatotoxic medications initially Goals of Care Discussion +Daughter states that in [place] culture, some people prefer not to be told about their severe illness and have it managed by others +Daughter also told me she did end up sharing the results with him - Patient's daughter, POA, would like to pursue measures focused on promoting comfort rather than aggressive treatment. - Daughter confirmed that patient is DNR/DNI and that they have discussed this - Case management: see consult note for full details. In summary, patient currently lives alone and daughter would prefer he stay at home with hospice, but referral placed to SNF to possible short stay to increase strength. - Palliative Care: see consult note for full details. In summary, patient's daughter has discussed with him the concern that he has extensive cancer and when it was discussed whether he would like full treatment vs. management of his symptoms, he preferred the latter. Weakness - Significant weakness, anorexia, and fatigue reported by daughter over the last several weeks, in conjunction with pain - Primarily suspect that this is due to his metastatic burden and pain - Work-up otherwise: - Though no clear source of infection on exam, leukocytosis is noted in this regard - Blood culture no growth at 48 hrs, procal 0.85 --> PT evaluation completed: unsafe to go home without 24/7 supervision. Recommending inpatient rehab. --> Case management: waiting to hear back from [facility] regarding acceptance, anticipate response early next week. Leukocytosis - WBC 15 on arrival (16.79 12/05) predominantly with left shift -- neutrophilia but also monocytosis with relative lymphopenia. - Cancer related +/- stress response? Viral infection? Bacteremia? Urine studies clean. - Blood culture NGTD (over 48 hours) - Given reason for presentation being pain and aid with protective services social worker, weakness being secondary, opt to trend for now and await other studies prior to ABX initiation. Low threshold to initiate broad-spectrum if suspected. Code: DNR/DNI Diet: Regular, easy to chew PPX: SCDs for now dispo: med surg, awaiting placement at [facility], [place] from also reached out to several other places looking for beds as [facility] does not have the staff to take him immediately Contacted daughter 12/04, she was unable to talk as she was in class. (2) Metastatic disease: (3) COPD with emphysema: (4) PAD (peripheral artery disease): Plan: (5) Diabetes: (6) Dysphagia: (7) Hepatomegaly: (8) Goals of care, counseling/discussion: (9) Weakness: Plan: (10) Leukocytosis: Admission and Anticipated Discharge Date Admission Date: November 27, 2021 Supervising Physician Co-Signing Physician Notes I personally examined the patient and verified all lemos points of history and exam, discussed case, and agree with decision making with Dr Marsh. Conversation is limited secondary to him being [place]og[place]ese-speaking. Patient Support Partner was used and patient throughout interview was nonresponsive but open his eyes and was making full eye contact but not verbalizing. He appeared to be tired and kept drifting in and out of sleep. This could have been due to his increased dose of oxycodone as he was prescribed a extra 5 mg dose last night to help with overall discomfort. However, we counseled nursing to please update family and ensure that they are aware of his fatigue today. We will continue monitoring daily and following palliative care/hospice recommendations. Hopeful for discharge to hospice by end of week. Subjective History limited. Patient was resting and did not want to chat this AM. Did not respond to polisher sand's questions even with having her type them. Applied Biology Professor: [id number] Review of Systems Review of Systems: See above. Physical Exam Physical Exam: frail appearing male in NAD resting comfortably - more somnolent, does not appear to be in pain, no increased work of breathing, clinically well perfused Results & Data Results & Data ([facility]) Vital Signs (Past 12 Hours) Vital Signs Temp Pulse Resp BP Pulse Ox O2 Del Method 12/04/21 22:22 36.6 C 70 18 129/63 96 Room Air 12/04/21 20:00 Room Air Laboratory Results 12/05/21 12/05/21 12/04/21 Range/Units 06:23 06:23 07:08 WBC 16.79 H (4.8-10.8) K/ul RBC 3.01 L (4.63-6.08) M/uL Hgb 8.4 L (14.0-18.0) g/dl Hct 25.0 L (40.1-51.0) % MCV 83.1 (80.0-100.0) fL MCH 27.9 (25.0-34.0) pg MCHC 33.6 (32.0-36.0) g/dL RDW Std Deviation 50.9 H (36.4-46.3) fL RDW Coeff of Cee 16.9 H (11.5-14.5) % Plt Count 217 (130-400) K/uL MPV 10.5 (9.4-12.4) fL Sodium 134 L 132 L (136-145) mmol/L Potassium 4.4 4.6 (3.5-5.1) mmol/L Chloride 103 100 (98-107) mmol/L Carbon Dioxide 29 30 (21-32) mmol/L Anion Gap 2 L 2 L (3-11) BUN 20 26 H (6-23) mg/dl Creatinine 0.72 0.86 (0.6-1.4) mg/dl Est Cr Clr Drug Dosing 51.4 43.0 ml/min Est GFR ( Amer) 105.0 97.6 ml/min Est GFR (Non-Af Amer) 90.6 84.2 ml/min BUN/Creatinine Ratio 27.8 H 30.2 H (10-20) Glucose 98 131 H (70-99(Fasting)) mg/dl Calcium 8.0 L 8.2 L (8.5-10.1) mg/dl Resident Activity Tracking Resident Involvement: Resident Care Provided Care Provided: Adult Hospital Medicine
[2021-12-05 07:27] LABS: BUN Creatinine Ratio 27.8 (10-20); Creatinine Clr Calc Pharmacy 51.4 ml/min; Est GFR (Non-African American) 90.6 ml/min; Potassium 4.4 mmol/L (3.5-5.1)
[2021-12-05] MEDS: oxyCODONE HCL SOLN 5 MG/5 ML UDC PO PRN (09:49)
[2021-12-05] MEDS: CHECK fentaNYL PATCH PLACEMENT SCH ×3 (09:51→23:22)
[2021-12-05] MEDS: DICLOFENAC SOD 1% GEL 100 GM TUBE EXT SCH ×4 (09:51→20:27)
[2021-12-05] MEDS: ASPIRIN 81 MG ECTAB PO SCH (10:33)
[2021-12-05] MEDS: FLUTICASONE FUROATE 100MCG 14 PUFFS/INHALER INH SCH (10:34)
[2021-12-05] MEDS: METOPROLOL TARTRATE 25 MG TAB PO SCH ×2 (10:34→20:24)
[2021-12-05] MEDS: DOCUSATE SODIUM SYRUP 100 MG/10 ML UDC PO SCH ×2 (10:34→20:26)
[2021-12-05] MEDS: ATORVASTATIN 10 MG TAB PO SCH (10:34)
[2021-12-05] MEDS: GABAPENTIN 100 MG CAP PO SCH ×3 (10:34→20:20)
[2021-12-05] MEDS: PANTOprazole 40 MG TAB PO SCH (10:35)
[2021-12-05] MEDS: UMECLIDINIUM/VILANTEROL 62.5/25MCG 7 PUFFS/INHALER INH SCH (10:35)
[2021-12-05] MEDS: amLODIPine BESYLATE 5 MG TAB PO SCH ×2 (12:56→12:57)
[2021-12-05] MEDS: dexAMETHasone 4 MG in SYRINGE 0 ML IV SCH (18:20)
[2021-12-05] MEDS: oxyCODONE HCL IR 5 MG TAB (IMMEDIATE RELEASE) PO SCH (20:20)
[2021-12-05] MEDS: HYDROmorphone INJ 0.5 MG/0.5 ML SYR IV PRN (21:37)
[2021-12-06] MEDS: HYDROmorphone INJ 0.5 MG/0.5 ML SYR IV PRN ×2 (01:33→20:20)
[2021-12-06] MEDS: oxyCODONE HCL SOLN 5 MG/5 ML UDC PO PRN ×3 (06:08→19:33)
--- NOTE | 2021-12-06 07:27 | Hospitalist Progress Note ---
Date of Service December 06, 2021 Assessment & Plan (1) Intractable abdominal pain: Plan: This is a 76-year-old gentleman with a history of COPD, diabetes, peripheral arterial disease s/p AKA on the right complicated by phantom pain, left renal mass, metastatic disease who presented to [facility] for evaluation of abdominal and bone-related pain likely from metastatic cancer of unknown primary (though pulmonary highly suspected). His pain is now controlled and he is medically stable for discharge to a retirement facility or home hospice - waiting on placement. Intractable Pain - Suspect primarily related to metastatic disease in the liver and ribs -- this is primarily where he is reporting his pain and is reproducible on exam (notable hepatomegaly) - Current home regimen: oxycodone 7.5mg q8h PRN (though daughter reports he has trouble taking this because of his dysphagia) - Current medications trialed include: -- Oxycodone syrup 7.5mg q4h PRN -- Dilaudid 0.25mg IV for breakthrough pain -- Continue home gabapentin for neuropathic pain (phantom limb); likely could increase if needed -- Hold on scheduling APAP given unclear burden of hepatic disease at this time -- May wish to consider initiation of muscle relaxants or Valium if tolerated / not oversedated by above medications - Fentanyl transdermal patch 25 mcg. - Per palliative care recommendation: started 8mg IV q24 dexamethasone (can adjust dose based on response) to help decrease inflammation from liver mets/contributing to pain - Continue PPI given scheduled NSAID - Start bowel regimen to avoid constipation 2/2 opioid use - colace --> added on 5 mg oxycodone HS scheduled to help with sleep and improve comfort of the patient. Metastatic Disease - In the context of significant heavy tobacco use, recent weight loss, worsening pain, anorexia over the past several months - ED visit 11/20: CT-A/P demonstrated interval development of multiple hypodense lesions within the liver consistent with metastatic disease, possible early metastatic changes within the sixth and seventh ribs, 6.3 lobular hypodense lesion in the upper pole of the kidney thought to be a cyst; CTA of the chest demonstrated increase in size of pulmonary nodule within the left upper lobe, alongside multiple irregular pulmonary nodules. - New diagnosis as of 11/20 -- primary unknown, but concern for pulmonary source given numerous nodules and extensive smoking history - Pain management as above - Unsure if patient would be eligible for any salvage chemotherapy options -- will depend on [id number] and risks-benefits of possible adverse effects of these RX. Not interested in radiation RX COPD - Secondary to prolonged and extensive tobacco use - Continue home inhalers - satting well on room air PAD - Extensive. Status-post AKA of the RLE - Continue ASA, atorvastatin Prediabetes / ?History of Diabetes - Review of records reveals prediabetes, A1c 6.2% in 06/2021, not on any meds - Hold on initiating ACHS glucose checks given patient's recent anorexia -- can consider starting at any time Dysphagia - Daughter reporting patient has had significant difficulties with swallowing lately -- feels like food/pills are getting stuck; not as much with liquids - Speech consult completed: recommending [id number] diet with thin liquids, aspiration and GERD precautions, meds in carrier. No direct treatment at this time. - Boost shakes are ordered Hepatomegaly - Appreciated on exam, likely secondary to metastatic disease - CT-A/P: "Interval development of multiple hypodense lesions seen throughout the liver with the largest in the left hepatic lobe measuring 3.7 cm. This is consistent with metastatic disease." --> Comparison is CT-Chest 08/29 - Significant elevation in ALP with otherwise "normal" LFTs -- ALP may be secondary to osseous mets - PT: 12.1, INR: 1.1, aPTT: 29.5 - Will avoid hepatotoxic medications initially Goals of Care Discussion +Daughter states that in [place] culture, some people prefer not to be told about their severe illness and have it managed by others +Daughter also told me she did end up sharing the results with him - Patient's daughter, ALLIE, would like to pursue measures focused on promoting comfort rather than aggressive treatment. - Daughter confirmed that patient is DNR/DNI and that they have discussed this - Case management: see consult note for full details. In summary, patient currently lives alone and daughter would prefer he stay at home with hospice, but referral placed to SNF to possible short stay to increase strength. - Palliative Care: see consult note for full details. In summary, patient's echo garcia has discussed with him the concern that he has extensive cancer and when it was discussed whether he would like full treatment vs. management of his symptoms, he preferred the latter. Weakness - Significant weakness, anorexia, and fatigue reported by daughter over the last several weeks, in conjunction with pain - Primarily suspect that this is due to his metastatic burden and pain - Work-up otherwise: - Though no clear source of infection on exam, leukocytosis is noted in this regard - Blood culture no growth at 48 hrs, procal 0.85 --> PT evaluation completed: unsafe to go home without 24/7 supervision. Recommending inpatient rehab. --> Case management: waiting to hear back from [facility] regarding acceptance Leukocytosis - WBC 15 on arrival (16.79 12/05) predominantly with left shift -- neutrophilia but also monocytosis with relative lymphopenia. - Cancer related +/- stress response? Viral infection? Bacteremia? Urine studies clean. - Blood culture NGTD (over 48 hours) - Given reason for presentation being pain and aid with social media marketing analyst, weakness being secondary, opt to trend for now and await other studies prior to ABX initiation. Low threshold to initiate broad-spectrum if suspected. Code: DNR/DNI Diet: Regular, easy to chew PPX: SCDs for now dispo: med surg, awaiting placement at [facility], Mar from also reached out to several other places looking for beds as [facility] does not have the staff to take him immediately Contacted daughter 12/04, she was unable to talk as she was in class. (2) Metastatic disease: (3) COPD with emphysema: (4) PAD (peripheral artery disease): Plan: (5) Diabetes: (6) Dysphagia: (7) Hepatomegaly: (8) Goals of care, counseling/discussion: (9) Weakness: Plan: (10) Leukocytosis: Admission and Anticipated Discharge Date Admission Date: November 27, 2021 Supervising Physician Co-Signing Physician Notes I personally examined the patient and verified all lemos points of history and exam, discussed case, and agree with decision making with Dr Marsh. Conversation is limited secondary to him being Egyptian-speaking. Access Manager was used and patient throughout interview was nonresponsive but opens his eyes and was making full eye contact but not verbalizing. Per staff he has been more frustrated and upset today and has been doing some things such as trying to swing at staff as well as make some inappropriate verbal comments. When we are present in the room as his healthcare team it appears that he does not want to talk with us. He appears to be more awake today with his eyes open and making full eye contact. We will continue monitoring daily and following palliative care/hospice recommendations. Hopeful for discharge to hospice by end of week Subjective History limited. Patient was resting and did not want to chat this AM. Patient did not respond to delivery rn. Rhit: [id number] Review of Systems Review of Systems: See above. Physical Exam Physical Exam: frail appearing male in NAD resting - in pain (due for pain meds will reeval), no increased work of breathing, clinically well perfused Results & Data Results & Data ([facility]) Vital Signs (Past 12 Hours) Vital Signs Temp Pulse Resp BP O2 Del Method 12/05/21 20:00 Room Air 12/05/21 21:18 36.6 C 86 18 116/55 L Diagnostic Findings No new imaging. Resident Activity Tracking Resident Involvement: Resident Care Provided Care Provided: Adult Hospital Medicine
[2021-12-06] MEDS: ATORVASTATIN 10 MG TAB PO SCH (07:49)
[2021-12-06] MEDS: PANTOprazole 40 MG TAB PO SCH (07:49)
[2021-12-06] MEDS: ASPIRIN 81 MG ECTAB PO SCH (07:49)
[2021-12-06] MEDS: METOPROLOL TARTRATE 25 MG TAB PO SCH ×3 (07:49→20:42)
[2021-12-06] MEDS: DICLOFENAC SOD 1% GEL 100 GM TUBE EXT SCH ×4 (07:50→19:36)
[2021-12-06] MEDS: FLUTICASONE FUROATE 100MCG 14 PUFFS/INHALER INH SCH (07:50)
[2021-12-06] MEDS: CHECK fentaNYL PATCH PLACEMENT SCH ×2 (07:50→15:00)
[2021-12-06] MEDS: UMECLIDINIUM/VILANTEROL 62.5/25MCG 7 PUFFS/INHALER INH SCH (07:50)
[2021-12-06] MEDS: GABAPENTIN 100 MG CAP PO SCH ×3 (07:50→20:21)
[2021-12-06] MEDS: DOCUSATE SODIUM SYRUP 100 MG/10 ML UDC PO SCH ×2 (07:50→20:34)
[2021-12-06] MEDS: amLODIPine BESYLATE 5 MG TAB PO SCH (11:52)
[2021-12-06] MEDS: dexAMETHasone 4 MG in SYRINGE 0 ML IV SCH (17:00)
[2021-12-06] MEDS: oxyCODONE HCL IR 5 MG TAB (IMMEDIATE RELEASE) PO SCH (20:34)
[2021-12-07] MEDS: CHECK fentaNYL PATCH PLACEMENT SCH ×3 (01:47→15:02)
--- NOTE | 2021-12-07 07:43 | Hospitalist Progress Note ---
Date of Service December 07, 2021 Assessment & Plan (1) Intractable abdominal pain: Plan: This is a 76-year-old gentleman with a history of COPD, diabetes, peripheral arterial disease s/p AKA on the right complicated by phantom pain, left renal mass, metastatic disease who presented to [facility] for evaluation of abdominal and bone-related pain likely from metastatic cancer of unknown primary (though pulmonary highly suspected). His pain is now controlled and he is medically stable for discharge to a alf facility or home hospice - waiting on placement/availability. Intractable Pain - Suspect primarily related to metastatic disease in the liver and ribs -- this is primarily where he is reporting his pain and is reproducible on exam (notable hepatomegaly) - Current home regimen: oxycodone 7.5mg q8h PRN (though daughter reports he has trouble taking this because of his dysphagia) - Current medications trialed include: -- Oxycodone syrup 7.5mg q4h PRN -- Dilaudid 0.25mg IV for breakthrough pain -- Continue home gabapentin for neuropathic pain (phantom limb); likely could increase if needed -- Hold on scheduling APAP given unclear burden of hepatic disease at this time -- May wish to consider initiation of muscle relaxants or Valium if tolerated / not oversedated by above medications - Fentanyl transdermal patch 25 mcg. - Per palliative care recommendation: started 8mg IV q24 dexamethasone (can adjust dose based on response) to help decrease inflammation from liver mets/contributing to pain - Continue PPI given scheduled NSAID - Start bowel regimen to avoid constipation 2/2 opioid use - colace --> added on 5 mg oxycodone HS scheduled to help with sleep and improve comfort of the patient. Talking with the nurse this AM Mr. Kelly has been refusing his medications including pain medications. Currently has fentanyl patch on. He is not interested in communicating with the fish hatchery manager, but does say phrases in Turkmen. Once the fish hatchery manager is obtained he becomes silent. The daughter was in to see him last night. She is a professor. Metastatic Disease - In the context of significant heavy tobacco use, recent weight loss, worsening pain, anorexia over the past several months - ED visit 11/20: CT-A/P demonstrated interval development of multiple hypodense lesions within the liver consistent with metastatic disease, possible early metastatic changes within the sixth and seventh ribs, 6.3 lobular hypodense lesion in the upper pole of the kidney thought to be a cyst; CTA of the chest demonstrated increase in size of pulmonary nodule within the left upper lobe, alongside multiple irregular pulmonary nodules. - New diagnosis as of 11/20 -- primary unknown, but concern for pulmonary source given numerous nodules and extensive smoking history - Pain management as above - Unsure if patient would be eligible for any salvage chemotherapy options -- will depend on [id number] and risks-benefits of possible adverse effects of these RX. Not interested in radiation RX COPD - Secondary to prolonged and extensive tobacco use - Continue home inhalers - satting well on room air PAD - Extensive. Status-post AKA of the RLE - Continue ASA, atorvastatin Prediabetes / ?History of Diabetes - Review of records reveals prediabetes, A1c 6.2% in 06/2021, not on any meds - Hold on initiating ACHS glucose checks given patient's recent anorexia -- can consider starting at any time Dysphagia - Daughter reporting patient has had significant difficulties with swallowing lately -- feels like food/pills are getting stuck; not as much with liquids - Speech consult completed: recommending [id number] diet with thin liquids, aspiration and GERD precautions, meds in carrier. No direct treatment at this time. - Boost shakes are ordered Hepatomegaly - Appreciated on exam, likely secondary to metastatic disease - CT-A/P: "Interval development of multiple hypodense lesions seen throughout the liver with the largest in the left hepatic lobe measuring 3.7 cm. This is consistent with metastatic disease." --> Comparison is CT-Chest 08/29 - Significant elevation in ALP with otherwise "normal" LFTs -- ALP may be secondary to osseous mets - PT: 12.1, INR: 1.1, aPTT: 29.5 - Will avoid hepatotoxic medications initially Goals of Care Discussion +Daughter states that in [place] culture, some people prefer not to be told about their severe illness and have it managed by others +Daughter also told me she did end up sharing the results with him - Patient's daughter, ALLIE, would like to pursue measures focused on promoting comfort rather than aggressive treatment. - Daughter confirmed that patient is DNR/DNI and that they have discussed this - Case management: see consult note for full details. In summary, patient currently lives alone and daughter would prefer he stay at home with hospice, but referral placed to SNF to possible short stay to increase strength. - Palliative Care: see consult note for full details. In summary, patient's daughter has discussed with him the concern that he has extensive cancer and when it was discussed whether he would like full treatment vs. management of his symptoms, he preferred the latter. [] CM following [] unclear if documented that he is on comfort care - will f/u with palliative Weakness - Significant weakness, anorexia, and fatigue reported by daughter over the last several weeks, in conjunction with pain - Primarily suspect that this is due to his metastatic burden and pain - Work-up otherwise: - Though no clear source of infection on exam, leukocytosis is noted in this regard - Blood culture no growth at 48 hrs, procal 0.85 --> PT evaluation completed: unsafe to go home without 24/ supervision. Recommending inpatient rehab. --> Case management: waiting to hear back from [facility] regarding acceptance Leukocytosis - WBC 15 on arrival (16.79 12/05) predominantly with left shift -- neutrophilia but also monocytosis with relative lymphopenia. - Cancer related +/- stress response? Viral infection? Bacteremia? Urine studies clean. - Blood culture NGTD (over 48 hours) - Given reason for presentation being pain and aid with social media marketing specialist, weakness being secondary, opt to trend for now and await other studies prior to ABX initiation. Low threshold to initiate broad-spectrum if suspected. Code: DNR/DNI Diet: Regular, easy to chew PPX: SCDs for now dispo: med surg, awaiting placement at [facility], Mar from also reached out to several other places looking for beds as [facility] does not have the staff to take him immediately Contacted daughter 12/04, she was unable to talk as she was in class. (2) COPD with emphysema: (3) PAD (peripheral artery disease): Plan: (4) Diabetes: (5) Dysphagia: (6) Hepatomegaly: (7) Goals of care, counseling/discussion: (8) Weakness: Plan: (9) Leukocytosis: Admission and Anticipated Discharge Date Admission Date: November 27, 2021 Supervising Physician Co-Signing Physician Notes Attending attestation Pt seen and examined in concert with Dr. Marsh. In agreement with the documented findings as noted in the resident documentation with any exceptions or additions as noted here. Patient declines significant interaction and use of fish hatchery manager but does respond to voice and focuses during greeting. Nonverbal declines examination. Nursing notes, vital signs reviewed. Intractable pain 2/2 metastatic disease - controlled on fentanyl patch, has oral medications though declining at this time. Review goals of care. Leukocytosis - refusing labs, afebrile at this time. Monitor. Continue present recommendations for palliative/hospice care and case management. Else see resident documentation as noted. Subjective History limited. Patient was resting and did not want to chat this AM. Patient did not respond to fish hatchery manager. Drywall Boardhanger: [id number] Review of Systems Review of Systems: See above. Physical Exam Physical Exam: frail appearing male eating in NAD, no increased work of breathing, clinically well perfused Results & Data Results & Data ([facility]) Vital Signs (Past 12 Hours) Vital Signs Temp Pulse Resp BP Pulse Ox O2 Del Method 12/06/21 23:00 18 97 Room Air 12/06/21 20:40 36.5 C 83 20 124/67 98 Room Air Diagnostic Findings No new imaging Resident Activity Tracking Resident Involvement: Resident Care Provided Care Provided: Adult Hospital Medicine
[2021-12-07] MEDS: METOPROLOL TARTRATE 25 MG TAB PO SCH ×2 (08:47→22:00)
[2021-12-07] MEDS: ATORVASTATIN 10 MG TAB PO SCH (08:47)
[2021-12-07] MEDS: PANTOprazole 40 MG TAB PO SCH (08:47)
[2021-12-07] MEDS: fentaNYL 25 MCG/HR TDSY TD SCH (08:47)
[2021-12-07] MEDS: GABAPENTIN 100 MG CAP PO SCH ×3 (08:47→22:00)
[2021-12-07] MEDS: ASPIRIN 81 MG ECTAB PO SCH (08:47)
[2021-12-07] MEDS: FLUTICASONE FUROATE 100MCG 14 PUFFS/INHALER INH SCH (08:48)
[2021-12-07] MEDS: DICLOFENAC SOD 1% GEL 100 GM TUBE EXT SCH ×4 (08:48→21:59)
[2021-12-07] MEDS: DOCUSATE SODIUM SYRUP 100 MG/10 ML UDC PO SCH ×2 (08:48→22:00)
[2021-12-07] MEDS: UMECLIDINIUM/VILANTEROL 62.5/25MCG 7 PUFFS/INHALER INH SCH (08:48)
[2021-12-07] MEDS: amLODIPine BESYLATE 5 MG TAB PO SCH (13:25)
[2021-12-07] MEDS: dexAMETHasone 4 MG in SYRINGE 0 ML IV SCH (15:30)
[2021-12-07] MEDS: oxyCODONE HCL IR 5 MG TAB (IMMEDIATE RELEASE) PO SCH (22:02)
[2021-12-08] MEDS: CHECK fentaNYL PATCH PLACEMENT SCH ×4 (07:09→23:09)
--- NOTE | 2021-12-08 07:32 | Hospitalist Progress Note ---
Date of Service December 08, 2021 Assessment & Plan (1) Intractable abdominal pain: Plan: This is a 76-year-old gentleman with a history of COPD, diabetes, peripheral arterial disease s/p AKA on the right complicated by phantom pain, left renal mass, metastatic disease who presented to [facility] for evaluation of abdominal and bone-related pain likely from metastatic cancer of unknown primary (though pulmonary highly suspected). His pain is now controlled and he is medically stable for discharge to a senior care facility or home hospice - waiting on placement/availability. Intractable Pain - Suspect primarily related to metastatic disease in the liver and ribs - Current home regimen: oxycodone 7.5mg q8h PRN (though daughter reports he has trouble taking this because of his dysphagia) - Current medications trialed include: Oxycodone syrup 7.5mg q4h PRN. Oxycodone 5 mg HS KEYLA. Dilaudid 0.25mg IV for breakthrough pain. Continue home gabapentin for neuropathic pain (phantom limb); likely could increase if needed -- May wish to consider initiation of muscle relaxants or Valium if tolerated / not oversedated by above medications - Fentanyl transdermal patch 25 mcg. - Per palliative care recommendation: started 8mg IV q24 dexamethasone (can adjust dose based on response) to help decrease inflammation from liver mets/contributing to pain - Continue PPI given scheduled NSAID - Start bowel regimen to avoid constipation 2/2 opioid use - colace Patient took his pain medications today and was more active in his own care. Appears to be adjusting to his situation. Will continue to monitor. Metastatic Disease - In the context of significant heavy tobacco use, recent weight loss, worsening pain, anorexia over the past several months - ED visit 11/20: CT-A/P demonstrated interval development of multiple hypodense lesions within the liver consistent with metastatic disease, possible early metastatic changes within the sixth and seventh ribs, 6.3 lobular hypodense lesion in the upper pole of the kidney thought to be a cyst; CTA of the chest demonstrated increase in size of pulmonary nodule within the left upper lobe, alongside multiple irregular pulmonary nodules. - New diagnosis as of 11/20 -- primary unknown, but concern for pulmonary source given numerous nodules and extensive smoking history - Pain management as above - Unsure if patient would be eligible for any salvage chemotherapy options -- will depend on [id number] and risks-benefits of possible adverse effects of these RX. Not interested in radiation RX COPD - Secondary to prolonged and extensive tobacco use - Continue home inhalers - satting well on room air PAD - Extensive. Status-post AKA of the RLE - Continue ASA, atorvastatin Prediabetes / ?History of Diabetes - Review of records reveals prediabetes, A1c 6.2% in 06/2021, not on any meds - Hold on initiating ACHS glucose checks given patient's recent anorexia -- can consider starting at any time Dysphagia - Daughter reporting patient has had significant difficulties with swallowing lately -- feels like food/pills are getting stuck; not as much with liquids - Speech consult completed: recommending evhk-ro-loyc diet with thin liquids, aspiration and GERD precautions, meds in carrier. No direct treatment at this time. - Boost shakes are ordered Hepatomegaly - Appreciated on exam, likely secondary to metastatic disease - CT-A/P: "Interval development of multiple hypodense lesions seen throughout the liver with the largest in the left hepatic lobe measuring 3.7 cm. This is consistent with metastatic disease." --> Comparison is CT-Chest 08/29 - Significant elevation in ALP with otherwise "normal" LFTs -- ALP may be secondary to osseous mets - PT: 12.1, INR: 1.1, aPTT: 29.5 - Will avoid hepatotoxic medications initially Goals of Care Discussion +Daughter states that in [place] culture, some people prefer not to be told about their severe illness and have it managed by others +Daughter also told me she did end up sharing the results with him - Patient's daughter, POA, would like to pursue measures focused on promoting comfort rather than aggressive treatment. - Daughter confirmed that patient is DNR/DNI and that they have discussed this - Case management: see consult note for full details. In summary, patient currently lives alone and daughter would prefer he stay at home with hospice, but referral placed to SNF to possible short stay to increase strength. - Palliative Care: see consult note for full details. In summary, patient's daughter has discussed with him the concern that he has extensive cancer and when it was discussed whether he would like full treatment vs. management of his symptoms, he preferred the latter. [] CM following [] unclear if documented that he is on comfort care - will f/u with palliative Weakness - Significant weakness, anorexia, and fatigue reported by daughter over the last several weeks, in conjunction with pain - Primarily suspect that this is due to his metastatic burden and pain - Work-up otherwise: - Though no clear source of infection on exam, leukocytosis is noted in this regard - Blood culture no growth at 48 hrs, procal 0.85 --> PT evaluation completed: unsafe to go home without 24/7 supervision. Recommending inpatient rehab. --> Case management: waiting to hear back from [facility] regarding acceptance Leukocytosis - WBC 15 on arrival (16.79 12/05) predominantly with left shift -- neutrophilia but also monocytosis with relative lymphopenia. - Cancer related +/- stress response? Viral infection? Bacteremia? Urine studies clean. - Blood culture NGTD (over 48 hours) - Given reason for presentation being pain and aid with social science professor, weakness being secondary, opt to trend for now and await other studies prior to ABX initiation. Low threshold to initiate broad-spectrum if suspected. Code: DNR/DNI Diet: Regular, easy to chew PPX: SCDs for now dispo: med surg, awaiting placement at [facility], Mar from also reached out to several other places looking for beds as [facility] does not have the staff to take him immediately Contacted daughter 12/04, she was unable to talk as she was in class. (2) COPD with emphysema: (3) PAD (peripheral artery disease): Plan: (4) Diabetes: (5) Dysphagia: (6) Hepatomegaly: (7) Goals of care, counseling/discussion: (8) Weakness: Plan: (9) Leukocytosis: Admission and Anticipated Discharge Date Admission Date: November 27, 2021 Supervising Physician Co-Signing Physician Notes Attending attestation Pt seen and examined in concert with Dr. Marsh. In agreement with the documented findings as noted in the resident documentation with any exceptions or additions as noted here. Patient open to interaction today with die cast supervisor service as noted with resident documentation. Denies any significant complaint at this time though also refuses examination at present. Nursing notes, vital signs reviewed. Intractable pain 2/2 metastatic disease - presumed well controlled on fentanyl patch with PRN oxycodone available if needed. Now tolerating medications w/ apple sauce so encourage same Leukocytosis - no fevers, patient continues to refuse lab studies Else see resident documentation as noted. Subjective History limited. Patient alert and orients to voice. Did converse with the translator/interpreter today. No pain. No complaints Seismic Prospecting Observer: [id number] Review of Systems Review of Systems: See above. Physical Exam Physical Exam: frail appearing male eating in NAD, no increased work of br eathing, clinically well perfused Results & Data Results & Data ([facility]) Vital Signs (Past 12 Hours) Vital Signs Temp Pulse Resp BP Pulse Ox 12/07/21 21:41 36.6 C 61 14 114/52 L 96 Diagnostic Findings No new imaging Resident Activity Tracking Resident Involvement: Resident Care Provided Care Provided: Adult Hospital Medicine
[2021-12-08] MEDS: ASPIRIN 81 MG ECTAB PO SCH (08:57)
[2021-12-08] MEDS: ATORVASTATIN 10 MG TAB PO SCH (08:57)
[2021-12-08] MEDS: DOCUSATE SODIUM SYRUP 100 MG/10 ML UDC PO SCH ×2 (08:57→20:27)
[2021-12-08] MEDS: DICLOFENAC SOD 1% GEL 100 GM TUBE EXT SCH ×4 (08:57→20:29)
[2021-12-08] MEDS: METOPROLOL TARTRATE 25 MG TAB PO SCH ×2 (08:58→20:29)
[2021-12-08] MEDS: PANTOprazole 40 MG TAB PO SCH (08:58)
[2021-12-08] MEDS: FLUTICASONE FUROATE 100MCG 14 PUFFS/INHALER INH SCH (08:58)
[2021-12-08] MEDS: GABAPENTIN 100 MG CAP PO SCH ×3 (08:58→20:28)
[2021-12-08] MEDS: UMECLIDINIUM/VILANTEROL 62.5/25MCG 7 PUFFS/INHALER INH SCH (08:58)
[2021-12-08] MEDS: amLODIPine BESYLATE 5 MG TAB PO SCH (13:11)
[2021-12-08] MEDS: dexAMETHasone 4 MG in SYRINGE 0 ML IV SCH (16:13)
[2021-12-08] MEDS: oxyCODONE HCL IR 5 MG TAB (IMMEDIATE RELEASE) PO SCH (20:31)
--- NOTE | 2021-12-09 07:54 | Hospitalist Progress Note ---
Date of Service December 09, 2021 Assessment & Plan (1) Intractable abdominal pain: Plan: This is a 76-year-old gentleman with a history of COPD, diabetes, peripheral arterial disease s/p AKA on the right complicated by phantom pain, left renal mass, metastatic disease who presented to [facility] for evaluation of abdominal and bone-related pain likely from metastatic cancer of unknown primary (though pulmonary highly suspected). His pain is now controlled and he is medically stable for discharge to a usp facility or home hospice - waiting on placement/availability. Intractable Pain - tolerable Likely related to metastatic disease in the liver and ribs. Current home regimen: oxycodone 7.5mg q8h PRN (though daughter reports he has trouble taking this because of his dysphagia) Pain Regimen: Diclofenac 2 gm QID, Fentanyl transdermal patch 25 mcg TID. Oxycodone 7.5 mg Q4 PRN. Oxycodone 5 mg HS KEYLA. Gabapentin 200 mg TID. Dilaudid 0.25 mg IV for breakthrough pain. Patient took his pain medications today and was more active in his own care. Appears to be adjusting to his situation. Will continue to monitor. Patient does not want increased pain medications at this time. [] pain control as above [] miralax daily for opioid induced constipation [] PPI - increased to pantoprazole 40 mg BID. Metastatic Disease - stable Primary cancer unknown. In light of heavy tobacco use lung is the most likely suspect. Patient experiencing weight loss, anorexia, and worsening pain over the last few months. He came to the hospital 11/20 for pain control. CT-A/P demonstrated interval development of multiple hypodense lesions within the liver consistent with metastatic disease, possible early metastatic changes within the sixth and seventh ribs, 6.3 lobular hypodense lesion in the upper pole of the kidney thought to be a cyst; CTA of the chest demonstrated increase in size of pulmonary nodule within the left upper lobe, alongside multiple irregular pulmonary nodules. [] patient not interested in radiation or salvage chemotherapy option [] continue pain management as above COPD Secondary to prolonged and extensive tobacco use. Continue home inhalers. Satting well on room air PAD - stable Extensive. Status-post AKA of the RLE [] Continue ASA, atorvastatin Prediabetes/?History of Diabetes Review of records reveals prediabetes, A1c 6.2% in 06/2021, not on any meds. Hold on initiating ACHS glucose checks given patient's recent anorexia -- can consider starting at any time Dysphagia Daughter reporting patient has had significant difficulties with swallowing lately -- feels like food/pills are getting stuck; not as much with liquids [] encourage PO intake - boosts [] Speech - mbtu-[id number] with thin liquids, aspiration and GERD precautions. Hepatomegaly - stable Appreciated on exam, likely secondary to metastatic disease. Significant elevation in ALP with otherwise "normal" LFTs -- ALP may be secondary to osseous mets. Avoid hepatotoxic medications. CT-A/P: "Interval development of multiple hypodense lesions seen throughout the liver with the largest in the left hepatic lobe measuring 3.7 cm. This is consistent with metastatic disease." - in comparison to CT Chest 08/29 Coag studies: PT: 12.1, INR: 1.1, aPTT: 29.5 Goals of Care Discussion Daughter states that in [place] culture, some people prefer not to be told about their severe illness and have it managed by others. Daughter also told me she did end up sharing the results with him [] Daughter POA - wants to focus on comfort rather than aggressive treatment [] Confirmed DNR/DNI [] CM - see consult note for full details. In summary, patient currently lives alone and daughter would prefer he stay at home with hospice, but referral placed to SNF to possible short stay to increase strength. [] Palliative Care - see consult note for full details. In summary, patient's daughter has discussed with him the concern that he has extensive cancer and when it was discussed whether he would like full treatment vs. management of his symptoms, he preferred the latter. [] Patient is not on comfort care Failure to Thrive Significant weakness, anorexia, and fatigue reported by daughter over the last several weeks, in conjunction with pain. Primarily suspect that this is due to his metastatic burden and pain Work-up otherwise: - Though no clear source of infection on exam, leukocytosis is noted in this regard - Blood culture NGTD x48, procal 0.85 [] PT evaluation completed: unsafe to go home without 24/7 supervision. Recommending inpatient rehab. [] Case management: waiting to hear back from [facility] regarding acceptance Leukocytosis WBC 15 on arrival (16.79 12/05) predominantly with left shift -- neutrophilia but also monocytosis with relative lymphopenia. Etiology unclear: cancer vs stress response vs viral infection vs bacteremia. UA clean. Blood culture NGTD x48. Could consider broad spectrum abx if patient starts to fever or develop hemodynamic instability. Code: DNR/DNI Diet: Regular, easy to chew PPX: SCDs for now dispo: med surg, awaiting placement at [facility], Mar from also reached out to several other places looking for beds as [facility] does not have the staff to take him immediately Contacted daughter 12/04, she was unable to talk as she was in class. Called daughter 12/09 - no answer (2) COPD with emphysema: (3) PAD (peripheral artery disease): Plan: (4) Diabetes: (5) Dysphagia: (6) Hepatomegaly: (7) Goals of care, counseling/discussion: (8) Weakness: Plan: (9) Leukocytosis: Admission and Anticipated Discharge Date Admission Date: November 27, 2021 Supervising Physician Co-Signing Physician Notes Attending attestation Pt seen and examined in concert with Dr. Marsh. In agreement with the docume nted findings as noted in the resident documentation with any exceptions or additions as noted here. Able to interact with machine bookkeeper today with reports of adequate subjective pain control and ongoing reflux symptoms. On examination, S1/S2 nl RRR no MCG. CTAB. Abd NT/ND BS+ve Intractable pain 2/2 metastatic disease - controlled on fentanyl patch, has oral medications though declining at this time. Review goals of care. GERD - increase PPI therapy as noted and monitor Leukocytosis - refusing labs, afebrile at this time. Monitor. Continue present recommendations for palliative/hospice care and case management. Else see resident documentation as noted. Subjective History limited. Patient alert and orients to voice. Did converse with the i nterpreter today. He notes having heartburn - takes Nexium at home. Patient notes that he is still having pain. Pain medication helps a little bit. He is not interested in changing his medication regimen at this time. Infant Babysitter: [id number] Review of Systems Review of Systems: See above. Physical Exam Physical Exam: frail appearing male in NAD - more alert and conversive, no increased work of breathing, clinically well perfused Results & Data Results & Data ([facility]) Vital Signs (Past 12 Hours) Vital Signs Temp Pulse Resp BP Pulse Ox 12/08/21 21:24 36.7 C 55 L 14 101/56 L 94 Diagnostic Findings No new imaging. Resident Activity Tracking Resident Involvement: Resident Care Provided Care Provided: Adult Hospital Medicine
[2021-12-09] MEDS: CHECK fentaNYL PATCH PLACEMENT SCH ×3 (08:44→23:08)
[2021-12-09] MEDS: GABAPENTIN 100 MG CAP PO SCH ×3 (08:44→20:08)
[2021-12-09] MEDS: METOPROLOL TARTRATE 25 MG TAB PO SCH ×2 (08:44→20:08)
[2021-12-09] MEDS: PANTOprazole 40 MG TAB PO SCH ×2 (08:44→20:08)
[2021-12-09] MEDS: DICLOFENAC SOD 1% GEL 100 GM TUBE EXT SCH ×4 (08:45→20:13)
[2021-12-09] MEDS: ASPIRIN 81 MG ECTAB PO SCH (08:45)
[2021-12-09] MEDS: ATORVASTATIN 10 MG TAB PO SCH (08:45)
[2021-12-09] MEDS: FLUTICASONE FUROATE 100MCG 14 PUFFS/INHALER INH SCH (08:45)
[2021-12-09] MEDS: UMECLIDINIUM/VILANTEROL 62.5/25MCG 7 PUFFS/INHALER INH SCH (08:45)
[2021-12-09] MEDS: DOCUSATE SODIUM SYRUP 100 MG/10 ML UDC PO SCH (09:18)
[2021-12-09] MEDS: POLYETHYLENE (MIRALAX) 17 GM PACK PO SCH (12:44)
[2021-12-09] MEDS: amLODIPine BESYLATE 5 MG TAB PO SCH (12:44)
[2021-12-09] MEDS: dexAMETHasone 4 MG in SYRINGE 0 ML IV SCH (17:47)
[2021-12-09] MEDS: oxyCODONE HCL IR 5 MG TAB (IMMEDIATE RELEASE) PO SCH (20:08)
--- NOTE | 2021-12-10 07:02 | Hospitalist Progress Note ---
Date of Service December 10, 2021 Assessment & Plan (1) Intractable abdominal pain: Plan: This is a 76-year-old gentleman with a history of COPD, diabetes, peripheral arterial disease s/p AKA on the right complicated by phantom pain, left renal mass, metastatic disease who presented to [facility] for evaluation of abdominal and bone-related pain likely from metastatic cancer of unknown primary (though pulmonary highly suspected). His pain is now controlled and he is medically stable for discharge to a custodial facility or home hospice - waiting on placement/availability. Intractable Pain - tolerable Likely related to metastatic disease in the liver and ribs. Current home regimen: oxycodone 7.5mg q8h PRN (though daughter reports he has trouble taking this because of his dysphagia) Pain Regimen: Diclofenac 2 gm QID, Fentanyl transdermal patch 25 mcg TID. Oxycodone 7.5 mg Q4 PRN. Oxycodone 5 mg HS KEYLA. Gabapentin 200 mg TID. Dilaudid 0.25 mg IV for breakthrough pain. Patient took his pain medications today and was more active in his own care. Appears to be adjusting to his situation. Will continue to monitor. Patient does not want increased pain medications at this time. [] pain control as above [] miralax daily for opioid induced constipation [] PPI - increased to pantoprazole 40 mg BID. Metastatic Disease - stable Primary cancer unknown. In light of heavy tobacco use lung is the most likely suspect. Patient experiencing weight loss, anorexia, and worsening pain over the last few months. He came to the hospital 11/20 for pain control. CT-A/P demonstrated interval development of multiple hypodense lesions within the liver consistent with metastatic disease, possible early metastatic changes within the sixth and seventh ribs, 6.3 lobular hypodense lesion in the upper pole of the kidney thought to be a cyst; CTA of the chest demonstrated increase in size of pulmonary nodule within the left upper lobe, alongside multiple irregular pulmonary nodules. [] patient not interested in radiation or salvage chemotherapy option [] continue pain management as above COPD Secondary to prolonged and extensive tobacco use. Continue home inhalers. Satting well on room air PAD - stable Extensive. Status-post AKA of the RLE [] Continue ASA, atorvastatin Prediabetes/?History of Diabetes Review of records reveals prediabetes, A1c 6.2% in 06/2021, not on any meds. Hold on initiating ACHS glucose checks given patient's recent anorexia -- can consider starting at any time Dysphagia Daughter reporting patient has had significant difficulties with swallowing lately -- feels like food/pills are getting stuck; not as much with liquids [] encourage PO intake - boosts [] Speech - [id number]-[id number] with thin liquids, aspiration and GERD precautions. Hepatomegaly - stable Appreciated on exam, likely secondary to metastatic disease. Significant elevation in ALP with otherwise "normal" LFTs -- ALP may be secondary to osseous mets. Avoid hepatotoxic medications. CT-A/P: "Interval development of multiple hypodense lesions seen throughout the liver with the largest in the left hepatic lobe measuring 3.7 cm. This is consistent with metastatic disease." - in comparison to CT Chest 08/29 Coag studies: PT: 12.1, INR: 1.1, aPTT: 29.5 Goals of Care Discussion Daughter states that in [place] culture, some people prefer not to be told about their severe illness and have it managed by others. Daughter also told me she did end up sharing the results with him [] Daughter POA - wants to focus on comfort rather than aggressive treatment [] Confirmed DNR/DNI [] CM - see consult note for full details. In summary, patient currently lives alone and daughter would prefer he stay at home with hospice, but referral placed to SNF to possible short stay to increase strength. [] Palliative Care - see consult note for full details. In summary, patient's daughter has discussed with him the concern that he has extensive cancer and when it was discussed whether he would like full treatment vs. management of his symptoms, he preferred the latter. [] Patient is not on comfort care Failure to Thrive Significant weakness, anorexia, and fatigue reported by daughter over the last several weeks, in conjunction with pain. Primarily suspect that this is due to his metastatic burden and pain [] PT evaluation completed: unsafe to go home without 24/7 supervision. Recommending inpatient rehab. [] Case management: waiting to hear back from [facility] regarding acceptance Leukocytosis WBC 15 on arrival (16.79 /) predominantly with left shift -- neutrophilia but also monocytosis with relative lymphopenia. Etiology unclear: cancer vs stress response vs viral infection vs bacteremia. UA clean. Blood culture NGTD x48. Could consider broad spectrum abx if patient starts to fever or develop hemodynamic instability. Code: DNR/DNI Diet: Regular, easy to chew PPX: SCDs for now dispo: med surg, awaiting placement at [facility], Mar from also reached out to several other places looking for beds as [facility] does not have the staff to take him immediately Updated daughter 12/09. (2) Metastatic disease: (3) COPD with emphysema: (4) PAD (peripheral artery disease): Plan: (5) Diabetes: (6) Dysphagia: (7) Hepatomegaly: (8) Goals of care, counseling/discussion: (9) Weakness: Plan: (10) Leukocytosis: Admission and Anticipated Discharge Date Admission Date: November 27, 2021 Supervising Physician Co-Signing Physician Notes I personally examined the patient and verified all lemos points of history and exam, discussed case, and agree with decision making with Dr Marsh nursing notes that mostly pain has been under reasonable control but pt will often decline meds unless at meals, etc - which sometimes then lends itself to pain worsening vitals noted nad heent nc at mmm breathing unlabored no accessory muscles good effort Intractable pain 2/2 metastatic disease - continue fentanyl patch for baseline control, oxycodone for breakthrough - titrate regimen as needed, overall pain control seems reasonable at this time otherwise as above Subjective History limited. Patient sitting up eating. Appears stable. Review of Systems Review of Systems: See above. Physical Exam Physical Exam: frail appearing male in NAD, no increased work of breathing, clinically well perfused Results & Data Results & Data ([facility]) Vital Signs (Past 12 Hours) Vital Signs Temp Pulse Resp BP Pulse Ox O2 Del Method 12/09/21 20:02 36.6 C 67 18 106/52 L 93 Room Air Diagnostic Findings No new imaging. Resident Activity Tracking Resident Involvement: Resident Care Provided Care Provided: Adult Hospital Medicine
[2021-12-10] MEDS: CHECK fentaNYL PATCH PLACEMENT SCH ×3 (07:53→23:28)
[2021-12-10] MEDS: GABAPENTIN 100 MG CAP PO SCH ×3 (07:54→20:54)
[2021-12-10] MEDS: FLUTICASONE FUROATE 100MCG 14 PUFFS/INHALER INH SCH (07:54)
[2021-12-10] MEDS: ATORVASTATIN 10 MG TAB PO SCH (07:54)
[2021-12-10] MEDS: ASPIRIN 81 MG ECTAB PO SCH (07:54)
[2021-12-10] MEDS: UMECLIDINIUM/VILANTEROL 62.5/25MCG 7 PUFFS/INHALER INH SCH (07:54)
[2021-12-10] MEDS: POLYETHYLENE (MIRALAX) 17 GM PACK PO SCH (07:54)
[2021-12-10] MEDS: METOPROLOL TARTRATE 25 MG TAB PO SCH ×2 (07:54→20:54)
[2021-12-10] MEDS: PANTOprazole 40 MG TAB PO SCH ×2 (07:54→20:54)
[2021-12-10] MEDS: fentaNYL 25 MCG/HR TDSY TD SCH (07:54)
[2021-12-10] MEDS: DICLOFENAC SOD 1% GEL 100 GM TUBE EXT SCH ×4 (07:54→20:52)
[2021-12-10] MEDS ORDERED: dexAMETHasone 2 MG in SYRINGE 0 ML IV SCH (10:30)
[2021-12-10] MEDS: amLODIPine BESYLATE 5 MG TAB PO SCH (12:03)
[2021-12-10] MEDS: oxyCODONE HCL SOLN 5 MG/5 ML UDC PO PRN (12:04)
--- NOTE | 2021-12-10 18:31 | Billing Data ---
Date of Service December 10, 2021 Coding Level of Care Code 23419 Subseq Hosp Care Lvl 3
[2021-12-10] MEDS: oxyCODONE HCL IR 5 MG TAB (IMMEDIATE RELEASE) PO SCH (20:56)
--- NOTE | 2021-12-11 06:45 | Hospitalist Progress Note ---
Date of Service December 11, 2021 Assessment & Plan (1) Intractable abdominal pain: Plan: This is a 76-year-old gentleman with a history of COPD, diabetes, peripheral arterial disease s/p AKA on the right complicated by phantom pain, left renal mass, metastatic disease who presented to [facility] for evaluation of abdominal and bone-related pain likely from metastatic cancer of unknown primary (though pulmonary highly suspected). His pain is now controlled and he is medically stable for discharge to a halfway facility or home hospice - waiting on placement/availability. Intractable Pain - now at goal Secondary to metastatic disease in the liver and ribs. Pain Regimen: Voltaren gel QID, fentanyl patch 25 mcg TID, oxycodone 5 mg HS KEYLA, gabapentin 200 mg TID. Oxycodone 7.5 mg Q4 PRN and Dilaudid 0.25 mg IV for breakthrough pain. Responding well and participating more in therapy/daily activities. Appears to be adjusting to his situation. [] Continue PO dexamethasone taper for liver capsule inflammation/pain - stop 12/13 [] Initiate Colace bid (wasn't tolerating MiraLax per RN) [] PPI - increased to pantoprazole 40 mg BID. Metastatic Disease - stable Patient experiencing weight loss, anorexia, and worsening pain over the last few months. Primary cancer unknown. In light of heavy tobacco use, pulmonary source is the most likely suspect. He came to the hospital 11/[address] for [address]-A/P demonstrated interval development of multiple hypodense lesions within the liver consistent with metastatic disease, possible early metastatic changes within the sixth and seventh ribs, 6.3 lobular hypodense lesion in the upper pole of the kidney thought to be a cyst; CTA of the chest demonstrated increase in size of pulmonary nodule within the left upper lobe, alongside multiple irregular pulmonary nodules. [] patient not interested in radiation or salvage chemotherapy option [] continue pain management as above COPD Secondary to prolonged and extensive tobacco use. Continue home inhalers. Satting well on room air PAD - stable Extensive. Status-post AKA of the RLE [] Continue ASA, atorvastatin Prediabetes/?History of Diabetes Review of records reveals prediabetes, A1c 6.2% in 06/2021, not on any meds. Hold on initiating ACHS glucose checks given patient's recent anorexia -- can consider starting at any time Dysphagia Daughter reporting patient has had significant difficulties with swallowing lately -- feels like food/pills are getting stuck; not as much with liquids [] encourage PO intake - boosts [] Speech - [id number] with thin liquids, aspiration and GERD precautions. Hepatomegaly - stable Appreciated on exam, likely secondary to metastatic disease. Significant elevation in ALP with otherwise "normal" LFTs -- ALP may be secondary to osseous mets. Avoid hepatotoxic medications. CT-A/P: "Interval development of multiple hypodense lesions seen throughout the liver with the largest in the left hepatic lobe measuring 3.7 cm. This is consistent with metastatic disease." - in comparison to CT Chest 08/29 Goals of Care Discussion Daughter states that in [place] culture, some people prefer not to be told about their severe illness and have it managed by others. Daughter also told me she did end up sharing the results with him [] Daughter POA - wants to focus on comfort rather than aggressive treatment [] Confirmed DNR/DNI [] CM following: currently lives alone and daughter would prefer he stay at home with hospice, but referral placed to SNF to possible short stay to increase strength. [] Palliative Care - patient's daughter has discussed with him the concern that he has extensive cancer and when it was discussed whether he would like full treatment vs. management of his symptoms, he preferred the latter. [] Patient is NOT on comfort care Failure to Thrive Significant weakness, anorexia, and fatigue reported by daughter over the last several weeks, in conjunction with pain. Primarily suspect that this is due to his metastatic burden and pain [] PT evaluation completed: unsafe to go home without 24/7 supervision - inpatient rehab recommended, however given home hospice situation, planning for SNF [] Case management: waiting to hear back from [facility] regarding acceptance Leukocytosis No active signs/symptoms of infection. Noted upon admission. Likely cancer and stress-related. Monitor PRN. Code: DNR/DNI Diet: Regular, easy to chew PPX: SCDs dispo: med surg, awaiting placement at [facility], Mar from also reached out to several other places looking for beds as [facility] does not have the staff to take him immediately (2) Metastatic disease: (3) COPD with emphysema: (4) PAD (peripheral artery disease): Plan: (5) Diabetes: (6) Dysphagia: (7) Hepatomegaly: (8) Goals of care, counseling/discussion: (9) Weakness: Plan: (10) Leukocytosis: Admission and Anticipated Discharge Date Admission Date: November 27, 2021 Supervising Physician Co-Signing Physician Notes I personally examined the patient and verified all lemos points of history and exam, discussed case, and agree with decision making with Dr Sharma asleeart when i see him. nursing notes that pain has been doing better today vitals noted nad heent nc at mmm breathing unlabored no accessory muscles good effort Intractable pain 2/2 metastatic disease - continue fentanyl patch for baseline control, oxycodone for breakthrough - titrate regimen as needed, overall pain control continues to appear reasonable at this time otherwise as above, awaiting SNF once bed available Subjective NAEO. Eating breakfast at time of my visitation this morning. Nursing reporting that largely seems to be comfortable in discussions and daily activities - occasional bursts of pain. Small BMs Review of Systems Review of Systems: as per HPI Physical Exam Physical Exam: General: 76-year old male who is alert and in no acute distress. Appears comfortable. HEENT: NCAT. Eyes - Sclera are white, anicteric, and without injection. Mouth - MMM Pulmonary: Good respiratory effort with symmetric expansion of the chest. No use of accessory muscles Extremities: Upper and lower extremities are warm and well perfused. Psych: Well-developed, well-nourished, appropriately dressed for occasion. Behavior is cooperative and appropriate. Results & Data Results & Data ([facility]) Vital Signs (Past 12 Hours) Vital Signs Temp Pulse Resp BP Pulse Ox O2 Del Method 12/10/21 20:00 Room Air 12/10/21 20:48 36.6 C 64 16 107/56 L 94 Room Air Resident Activity Tracking Resident Involvement: Resident Care Provided Care Provided: Adult Hospital Medicine
[2021-12-11] MEDS: CHECK fentaNYL PATCH PLACEMENT SCH ×2 (08:40→15:00)
[2021-12-11] MEDS: METOPROLOL TARTRATE 25 MG TAB PO SCH ×2 (08:41→20:25)
[2021-12-11] MEDS: ATORVASTATIN 10 MG TAB PO SCH (08:41)
[2021-12-11] MEDS: ASPIRIN 81 MG ECTAB PO SCH (08:41)
[2021-12-11] MEDS: GABAPENTIN 100 MG CAP PO SCH ×3 (08:41→20:26)
[2021-12-11] MEDS: PANTOprazole 40 MG TAB PO SCH ×2 (08:41→20:25)
[2021-12-11] MEDS: UMECLIDINIUM/VILANTEROL 62.5/25MCG 7 PUFFS/INHALER INH SCH (08:42)
[2021-12-11] MEDS: DICLOFENAC SOD 1% GEL 100 GM TUBE EXT SCH ×4 (08:42→20:25)
[2021-12-11] MEDS: FLUTICASONE FUROATE 100MCG 14 PUFFS/INHALER INH SCH (08:42)
[2021-12-11] MEDS: POLYETHYLENE (MIRALAX) 17 GM PACK PO SCH (08:42)
[2021-12-11] MEDS: dexAMETHasone 1 MG TAB PO SCH (08:49)
[2021-12-11] MEDS ORDERED: DOCUSATE SODIUM SYRUP 100 MG/10 ML UDC PO SCH (09:00)
[2021-12-11] MEDS: amLODIPine BESYLATE 5 MG TAB PO SCH (12:43)
--- NOTE | 2021-12-11 12:52 | Billing Data ---
Date of Service December 11, 2021 Coding Level of Care Code 61868 Subseq Hosp Care Lvl 2
[2021-12-11] MEDS: DOCUSATE SODIUM/SENNA 50/8.6MG TAB PO SCH (18:03)
[2021-12-11] MEDS: ENOXAPARIN INJ 30 MG/0.3 ML SYR SQ SCH (20:25)
[2021-12-11] MEDS: oxyCODONE HCL IR 5 MG TAB (IMMEDIATE RELEASE) PO SCH (20:26)
[2021-12-12] MEDS: CHECK fentaNYL PATCH PLACEMENT SCH ×4 (00:05→23:35)
--- NOTE | 2021-12-12 06:44 | Hospitalist Progress Note ---
Date of Service December 12, 2021 Assessment & Plan (1) Intractable abdominal pain: Plan: This is a 76-year-old gentleman with a history of COPD, diabetes, peripheral arterial disease s/p AKA on the right complicated by phantom pain, left renal mass, metastatic disease who presented to [facility] for evaluation of abdominal and bone-related pain likely from metastatic cancer of unknown primary (though pulmonary highly suspected). His pain is now controlled and he is medically stable for discharge to a halfway facility or home hospice - waiting on placement/availability. Intractable Pain - now at goal Secondary to metastatic disease in the liver and ribs. Pain Regimen: Voltaren gel QID, fentanyl patch 25 mcg TID, oxycodone 5 mg HS KEYLA, gabapentin 200 mg TID. Oxycodone 7.5 mg Q4 PRN and Dilaudid 0.25 mg IV for breakthrough pain. Responding well and participating more in therapy/daily activities. Appears to be adjusting to his situation. [] Continue PO dexamethasone taper for liver capsule inflammation/pain - scheduled to stop 12/13 [] Initiate Senna/Dulcolax bid with ongoing opiate therapy - titrate as indicated [] PPI - increased to pantoprazole 40 mg BID. Metastatic Disease - stable Patient experiencing weight loss, anorexia, and worsening pain over the last few months. Primary cancer unknown. In light of heavy tobacco use, pulmonary source is the most likely suspect. He came to the hospital 11/[address] for [address]-A/P demonstrated interval development of multiple hypodense lesions within the liver consistent with metastatic disease, possible early metastatic changes within the sixth and seventh ribs, 6.3 lobular hypodense lesion in the upper pole of the kidney thought to be a cyst; CTA of the chest demonstrated increase in size of pulmonary nodule within the left upper lobe, alongside multiple irregular pulmonary nodules. [] patient not interested in radiation or salvage chemotherapy option [] continue pain management as above COPD Secondary to prolonged and extensive tobacco use. Continue home inhalers. Satting well on room air PAD - stable Extensive. Status-post AKA of the RLE [] Continue ASA, atorvastatin Prediabetes/?History of Diabetes Review of records reveals prediabetes, A1c 6.2% in 06/2021, not on any meds. Hold on initiating ACHS glucose checks given patient's recent anorexia -- can consider starting at any time Dysphagia Daughter reporting patient has had significant difficulties with swallowing lately -- feels like food/pills are getting stuck; not as much with liquids [] encourage PO intake - boosts [] Speech - [id number] with thin liquids, aspiration and GERD precautions. Hepatomegaly - stable Appreciated on exam, likely secondary to metastatic disease. Significant elevation in ALP with otherwise "normal" LFTs -- ALP may be secondary to osseous mets. Avoid hepatotoxic medications. CT-A/P: "Interval development of multiple hypodense lesions seen throughout the liver with the largest in the left hepatic lobe measuring 3.7 cm. This is consistent with metastatic disease." - in comparison to CT Chest 08/29 Goals of Care Discussion Daughter states that in [place] culture, some people prefer not to be told about their severe illness and have it managed by others. Daughter also told me she did end up sharing the results with him [] Daughter POA - wants to focus on comfort rather than aggressive treatment. Patient is DNR/DNI [] CM following: currently lives alone and daughter would prefer he stay at home with hospice, but referral placed to SNF to possible short stay to increase strength. [facility] awaiting bed. [] Palliative Care - patient's daughter has discussed with him the concern that he has extensive cancer and when it was discussed whether he would like full treatment vs. management of his symptoms, he preferred the latter. [] Patient is NOT on comfort care Failure to Thrive Significant weakness, anorexia, and fatigue reported by daughter over the last several weeks, in conjunction with pain. Primarily suspect that this is due to his metastatic burden and pain [] PT evaluation completed: unsafe to go home without 24/7 supervision - inpatient rehab recommended, however given home hospice situation, planning for SNF [] Case management: awaiting availability at [facility] Leukocytosis No active signs/symptoms of infection. Noted upon admission. Likely cancer and stress-related. Monitor PRN. Code: DNR/DNI Diet: Regular, easy to chew PPX: [place] score: 3 -- high risk for DVT. Initiate Lovenox 30 dispo: [place], awaiting bed at [facility] (2) COPD with emphysema: (3) PAD (peripheral artery disease): Plan: (4) Diabetes: (5) Dysphagia: (6) Hepatomegaly: (7) Goals of care, counseling/discussion: (8) Weakness: Plan: (9) Leukocytosis: Admission and Anticipated Discharge Date Admission Date: November 27, 2021 Supervising Physician Co-Signing Physician Notes I personally examined the patient and verified all lemos points of history and exam, discussed case, and agree with decision making with Dr Sharma once again asleep when i see him. in d/w dr sharma pain was rapidly remedied w prn medication earlier vitals noted nad heent nc at mmm breathing unlabored no accessory muscles good effort Intractable pain 2/2 metastatic disease - continue fentanyl patch for baseline control, oxycodone for breakthrough - titrate regimen when/as needed, overall pain control continues to appear reasonable at this time otherwise as above, awaiting SNF once bed available Subjective No additional pain meds overnight. Resting comfortably with no overnight events on my initial exam. Spoke with patient via science interpreter later in the morning. Reported some pain in his L shoulder radiating to his chest. He says he's been having this pain and feels like it is related to his stomach. After taking his AM pills, it went away and he felt much more comfortable. He said the chest discomfort is worse with pressing on it. No other questions/concerns. Review of Systems Review of Systems: as per HPI Physical Exam Physical Exam: General: 76-year old male who is sleeping comfortably upon my arrival. On re-examination, he is fully alert and oriented. In mild discomfort secondary to pain which improved following PO medications. HEENT: NCAT. Mouth - MMM Cardiac: NRRR,+S1/S2 w/o m/r/g Pulmonary: Good respiratory effort with symmetric expansion of the chest. No use of accessory muscles MSK: Tenderness to palpation over L shoulder blade. Upper and lower extremities are warm and well perfused. Psych: Well-developed, well-nourished, appropriately dressed for occasion. Behavior is cooperative and appropriate. Results & Data Results & Data ([facility]) Vital Signs (Past 12 Hours) Vital Signs Temp Pulse Resp BP Pulse Ox O2 Del Method 12/11/21 20:00 Room Air 12/11/21 20:21 36.6 C 68 18 121/55 L 95 Room Air Resident Activity Tracking Resident Involvement: Resident Care Provided Care Provided: Adult [facility] Medicine
[2021-12-12] MEDS: ASPIRIN 81 MG ECTAB PO SCH (08:37)
[2021-12-12] MEDS: PANTOprazole 40 MG TAB PO SCH ×2 (08:37→21:45)
[2021-12-12] MEDS: METOPROLOL TARTRATE 25 MG TAB PO SCH ×2 (08:37→21:45)
[2021-12-12] MEDS: ATORVASTATIN 10 MG TAB PO SCH (08:37)
[2021-12-12] MEDS: GABAPENTIN 100 MG CAP PO SCH ×3 (08:37→21:45)
[2021-12-12] MEDS: UMECLIDINIUM/VILANTEROL 62.5/25MCG 7 PUFFS/INHALER INH SCH (08:38)
[2021-12-12] MEDS: dexAMETHasone 1 MG TAB PO SCH (08:38)
[2021-12-12] MEDS: FLUTICASONE FUROATE 100MCG 14 PUFFS/INHALER INH SCH (08:38)
[2021-12-12] MEDS: DOCUSATE SODIUM/SENNA 50/8.6MG TAB PO SCH (08:40)
[2021-12-12] MEDS: DICLOFENAC SOD 1% GEL 100 GM TUBE EXT SCH ×4 (08:43→21:46)
[2021-12-12] MEDS: oxyCODONE HCL SOLN 5 MG/5 ML UDC PO PRN (08:53)
--- NOTE | 2021-12-12 13:05 | Billing Data ---
Date of Service December 12, 2021 Coding Level of Care Code 04608 Subseq Hosp Care Lvl 2
[2021-12-12] MEDS: amLODIPine BESYLATE 5 MG TAB PO SCH (13:08)
[2021-12-12] MEDS: ENOXAPARIN INJ 30 MG/0.3 ML SYR SQ SCH (21:45)
[2021-12-12] MEDS: oxyCODONE HCL IR 5 MG TAB (IMMEDIATE RELEASE) PO SCH (21:49)
--- NOTE | 2021-12-13 06:55 | Hospitalist Progress Note ---
Date of Service December 13, 2021 Assessment & Plan (1) Intractable abdominal pain: Plan: This is a 76-year-old gentleman with a history of COPD, diabetes, peripheral arterial disease s/p AKA on the right complicated by phantom pain, left renal mass, metastatic disease who presented to [facility] for evaluation of abdominal and bone-related pain likely from metastatic cancer of unknown primary (though pulmonary highly suspected). His pain is now controlled and he is medically stable for discharge to a long-term facility or home hospice - waiting on placement/availability. Intractable Pain - now at goal Secondary to metastatic disease in the liver and ribs. Pain Regimen: Voltaren gel QID, fentanyl patch 25 mcg TID, oxycodone 5 mg HS KEYLA, gabapentin 200 mg TID. Oxycodone 7.5 mg Q4 PRN and Dilaudid 0.25 mg IV for breakthrough pain. Responding well and participating more in therapy/daily activities. Appears to be adjusting to his situation. [] Continue PO dexamethasone taper for liver capsule inflammation/pain - scheduled to stop 12/13 [] Increase Senna/Dulcolax to b.i.d. with ongoing opiate therapy - titrate as indicated --> Will also add MiraLax 34mg b.i.d. -- can decrease once BM achieved [] PPI - increased to pantoprazole 40 mg BID. Metastatic Disease - stable Patient experiencing weight loss, anorexia, and worsening pain over the last few months. Primary cancer unknown. In light of heavy tobacco use, pulmonary source is the most likely suspect. He came to the hospital 11/[address] for [address]-A/P demonstrated interval development of multiple hypodense lesions within the liver consistent with metastatic disease, possible early metastatic changes within the sixth and seventh ribs, 6.3 lobular hypodense lesion in the upper pole of the kidney thought to be a cyst; CTA of the chest demonstrated increase in size of pulmonary nodule within the left upper lobe, alongside multiple irregular pulmonary nodules. [] patient not interested in radiation or salvage chemotherapy option [] continue pain management as above COPD Secondary to prolonged and extensive tobacco use. Continue home inhalers. Satting well on room air PAD - stable Extensive. Status-post AKA of the RLE [] Continue ASA, atorvastatin Prediabetes Review of records reveals prediabetes, A1c 6.2% in 06/2021, not on any meds. Hold on initiating ACHS glucose checks given patient's recent anorexia -- can consider starting at any time Dysphagia Daughter reporting patient has had significant difficulties with swallowing lately -- feels like food/pills are getting stuck; not as much with liquids [] encourage PO intake - boosts [] Speech - [id number] with thin liquids, aspiration and GERD precautions. Hepatomegaly - stable Appreciated on exam, likely secondary to metastatic disease. Significant elevation in ALP with otherwise "normal" LFTs -- ALP may be secondary to osseous mets. Avoid hepatotoxic medications. CT-A/P: "Interval development of multiple hypodense lesions seen throughout the liver with the largest in the left hepatic lobe measuring 3.7 cm. This is consistent with metastatic disease." - in comparison to CT Chest 08/29 Goals of Care Discussion Daughter states that in [place] culture, some people prefer not to be told about their severe illness and have it managed by others. Daughter also told me she did end up sharing the results with him [] Daughter POA - wants to focus on comfort rather than aggressive treatment. Patient is DNR/DNI [] CM following: currently lives alone and daughter would prefer he stay at home with hospice, but referral placed to SNF to possible short stay to increase strength. [facility] referral out, [facility] without beds. [] Palliative Care - patient's daughter has discussed with him the concern that he has extensive cancer and when it was discussed whether he would like full treatment vs. management of his symptoms, he preferred the latter. [] Patient is NOT on comfort care Failure to Thrive Significant weakness, anorexia, and fatigue reported by daughter over the last several weeks, in conjunction with pain. Primarily suspect that this is due to his metastatic burden and pain [] PT evaluation completed: unsafe to go home without 24/7 supervision - inpatient rehab recommended, however given home hospice situation, planning for SNF [] Case management: awaiting availability at [facility] Leukocytosis No active signs/symptoms of infection. Noted upon admission. Likely cancer and stress-related. Monitor PRN. Code: DNR/DNI Diet: Regular, easy to chew PPX: Lovenox 30 dispo: [place] - possibly [facility] (2) COPD with emphysema: (3) PAD (peripheral artery disease): Plan: (4) Diabetes: (5) Dysphagia: (6) Hepatomegaly: (7) Goals of care, counseling/discussion: (8) Weakness: Plan: (9) Leukocytosis: Admission and Anticipated Discharge Date Admission Date: November 27, 2021 Supervising Physician Co-Signing Physician Notes I personally examined the patient and verified all lemos points of history and exam, discussed case, and agree with decision making with Dr Sharma pain a little bit bad when i see him but AM meds sitting in front of him and he hasn't taken them yet. vitals noted mldly uncomfortable appearing heent nc at mmm breathing unlabored no accessory muscles good effort Intractable pain 2/2 metastatic disease - continue fentanyl patch for baseline control, oxycodone for breakthrough - titrate regimen when/as needed, overall pain control continues to appear reasonable at this time - sometimes needs reminders to take meds otherwise as above, awaiting SNF once bed available Subjective Nursing concerns overnight that patient has not had BM while here. Patient unable to recall if he has / has not (none are documented). Has been on Senna + Docusate and previously MiraLax. No abdominal complaints. Otherwise, slightly confused overnight. Patient sleeping on arrival. Appears comfortable. Review of Systems Review of Systems: as per HPI Physical Exam Physical Exam: General: 76-year old male who is sleeping comfortably upon my arrival. HEENT: NCAT. Mouth - MMM Pulmonary: Good respiratory effort with symmetric expansion of the chest. No use of accessory muscles Extremities: UE/LE appear warm and well perfused. Results & Data Results & Data ([facility]) Vital Signs (Past 12 Hours) Vital Signs Temp Pulse Resp BP Pulse Ox O2 Del Method 12/12/21 21:30 Room Air 12/12/21 21:51 36.4 C L 68 18 116/50 L 94 Room Air Resident Activity Tracking Resident Involvement: Resident Care Provided Care Provided: Adult Hospital Medicine
[2021-12-13] MEDS: CHECK fentaNYL PATCH PLACEMENT SCH ×2 (08:00→17:00)
[2021-12-13] MEDS: ATORVASTATIN 10 MG TAB PO SCH (09:28)
[2021-12-13] MEDS: ASPIRIN 81 MG ECTAB PO SCH (09:28)
[2021-12-13] MEDS: PANTOprazole 40 MG TAB PO SCH ×2 (09:28→20:21)
[2021-12-13] MEDS: GABAPENTIN 100 MG CAP PO SCH ×3 (09:28→20:21)
[2021-12-13] MEDS: METOPROLOL TARTRATE 25 MG TAB PO SCH ×2 (09:29→20:23)
[2021-12-13] MEDS: FLUTICASONE FUROATE 100MCG 14 PUFFS/INHALER INH SCH (09:29)
[2021-12-13] MEDS: DICLOFENAC SOD 1% GEL 100 GM TUBE EXT SCH ×4 (09:29→20:22)
[2021-12-13] MEDS: UMECLIDINIUM/VILANTEROL 62.5/25MCG 7 PUFFS/INHALER INH SCH (09:29)
[2021-12-13] MEDS: POLYETHYLENE (MIRALAX) 17 GM PACK PO SCH ×2 (09:33→20:20)
[2021-12-13] MEDS: DOCUSATE SODIUM/SENNA 50/8.6MG TAB PO SCH ×2 (09:33→20:21)
[2021-12-13] MEDS: fentaNYL 25 MCG/HR TDSY TD SCH (09:34)
[2021-12-13] MEDS: oxyCODONE HCL SOLN 5 MG/5 ML UDC PO PRN (09:51)
[2021-12-13] MEDS: amLODIPine BESYLATE 5 MG TAB PO SCH (12:37)
--- NOTE | 2021-12-13 18:59 | Billing Data ---
Date of Service December 13, 2021 Coding Level of Care Code 99200 Subseq Hosp Care Lvl 2
[2021-12-13] MEDS: oxyCODONE HCL IR 5 MG TAB (IMMEDIATE RELEASE) PO SCH (20:21)
[2021-12-13] MEDS: ENOXAPARIN INJ 30 MG/0.3 ML SYR SQ SCH (20:22)
[2021-12-14] MEDS: CHECK fentaNYL PATCH PLACEMENT SCH ×3 (00:53→15:13)
[2021-12-14] MEDS: DOCUSATE SODIUM/SENNA 50/8.6MG TAB PO SCH ×3 (08:44→20:05)
[2021-12-14] MEDS: ASPIRIN 81 MG ECTAB PO SCH ×2 (08:44→09:37)
[2021-12-14] MEDS: ATORVASTATIN 10 MG TAB PO SCH ×2 (08:44→09:37)
[2021-12-14] MEDS: DICLOFENAC SOD 1% GEL 100 GM TUBE EXT SCH ×4 (08:44→20:05)
[2021-12-14] MEDS: GABAPENTIN 100 MG CAP PO SCH ×4 (08:45→20:07)
[2021-12-14] MEDS: PANTOprazole 40 MG TAB PO SCH ×3 (08:45→20:06)
[2021-12-14] MEDS: FLUTICASONE FUROATE 100MCG 14 PUFFS/INHALER INH SCH ×2 (08:46→09:37)
[2021-12-14] MEDS: POLYETHYLENE (MIRALAX) 17 GM PACK PO SCH ×3 (08:46→20:11)
[2021-12-14] MEDS: UMECLIDINIUM/VILANTEROL 62.5/25MCG 7 PUFFS/INHALER INH SCH ×2 (08:46→09:36)
[2021-12-14] MEDS: METOPROLOL TARTRATE 25 MG TAB PO SCH ×3 (08:59→20:06)
[2021-12-14] MEDS: amLODIPine BESYLATE 5 MG TAB PO SCH (11:20)
[2021-12-14] MEDS: oxyCODONE HCL SOLN 5 MG/5 ML UDC PO PRN ×2 (16:15→16:36)
--- NOTE | 2021-12-14 17:43 | Hospitalist Progress Note ---
Date of Service December 14, 2021 Assessment & Plan (1) Intractable abdominal pain: Plan: This is a 76-year-old gentleman with a history of COPD, diabetes, peripheral arterial disease s/p AKA on the right complicated by phantom pain, left renal mass, metastatic disease who presented to [facility] for evaluation of abdominal and bone-related pain likely from metastatic cancer of unknown primary (though pulmonary highly suspected). His pain is now controlled and he is medically stable for discharge to a jail facility or home hospice - waiting on placement/availability. Intractable Pain - now at goal Secondary to metastatic disease in the liver and ribs. Pain Regimen: Voltaren gel QID, fentanyl patch 25 mcg TID, oxycodone 5 mg HS KEYLA, gabapentin 200 mg TID. Oxycodone 7.5 mg Q4 PRNoverall this regimen seems to be working well whenever he takes itthere are definitely times where he seems to be in more uncontrolled pain, but on review of medications at those times it is usually whenever he has refused dosing or has not had dosing in quite a while. Other times whenever he is just had dosing he is usually asleep and appearing comfortable. Therefore, would continue current regimen but also continue to encourage him to take it Metastatic Disease - stable Patient experiencing weight loss, anorexia, and worsening pain over the last few months. Primary cancer unknown. In light of heavy tobacco use, pulmonary source is the most likely suspect. He came to the hospital 11/[address]-A/P demonstrated interval development of multiple hypodense lesions within the liver consistent with metastatic disease, possible early metastatic changes within the sixth and seventh ribs, 6.3 lobular hypodense lesion in the upper pole of the kidney thought to be a cyst; CTA of the chest demonstrated increase in size of pulmonary nodule within the left upper lobe, alongside multiple irregular pulmonary nodules. [] patient not interested in radiation or salvage chemotherapy option [] continue pain management as above COPD Secondary to prolonged and extensive tobacco use. Continue home inhalers. PAD - stable Extensive. Status-post AKA of the RLE [] Continue ASA, atorvastatin Prediabetes Review of records reveals prediabetes, A1c 6.2% in 06/2021, not on any meds. Dysphagia Daughter reporting patient has had significant difficulties with swallowing lately -- feels like food/pills are getting stuck; not as much with liquids [] encourage PO intake - boosts [] Speech - [id number] with thin liquids, aspiration and GERD precautions. Hepatomegaly - stable Appreciated on exam, likely secondary to metastatic disease. Significant elevation in ALP with otherwise "normal" LFTs -- ALP may be secondary to osseous mets. Avoid hepatotoxic medications. Had course of dexamethasone to help with liver capsule painthis was stopped 12/13, follow, can resume if needed CT-A/P: "Interval development of multiple hypodense lesions seen throughout the liver with the largest in the left hepatic lobe measuring 3.7 cm. This is consistent with metastatic disease." - in comparison to CT Chest 08/29 Goals of Care Discussion Daughter states that in [place] culture, some people prefer not to be told about their severe illness and have it managed by others. Daughter also told me she did end up sharing the results with him [] Daughter POA - wants to focus on comfort rather than aggressive treatment. Patient is DNR/DNI [] CM following: currently lives alone and daughter would prefer he stay at home with hospice, but his needs are not able to be met at home. Referral placed to SNF to possible short stay to increase strength. [facility] referral out, [facility] without beds. [] Palliative Care - patient's daughter has discussed with him the concern that he has extensive cancer and when it was discussed whether he would like full treatment vs. management of his symptoms, he preferred the latter. Failure to Thrive Significant weakness, anorexia, and fatigue reported by daughter over the last several weeks, in conjunction with pain. Primarily suspect that this is due to his metastatic burden and pain [] PT evaluation completed: unsafe to go home without 24/7 supervision - inpatient rehab recommended, however given home hospice situation, planning for SNF [] Case management: awaiting availability at SNF Leukocytosis No active signs/symptoms of infection. Noted upon admission. Likely cancer and stress-related. Monitor PRN. Code: DNR/DNI Diet: Regular, easy to chew PPX: Lovenox 30 dispo: SNF when approved/bed available Admission and Anticipated Discharge Date Admission Date: November 27, 2021 Subjective Sleeping appearing comfortable whenever I see him. Nursing does note that he has been a bit more agitated today. Physical Exam Physical Exam: Resting comfortably appears to be in no distress. Breathing unlabored no accessory muscle use good effort. Skin shows no rashes no pallor or icterus. Neuro without focal deficits at rest, absent right lower extremity Results & Data Results & Data ([facility]) Vital Signs (Past 12 Hours) Vital Signs Temp Pulse Resp BP BP Pulse Ox O2 Del Method 12/14/21 15:13 98.1 F 74 12 123/70 90 Room Air 12/14/21 09:00 Room Air 12/14/21 08:05 98.4 F 76 14 101/50 L 92 Room Air PG Care Time/CCT Total # of Minutes Spent Total Time Spent with Patient: Total time spent is greater than 50% in coordination of care (as documented) at patient's floor/unit and/or counseling patient: Coding Level of Care Code 67970 Subseq Hosp Care Lvl 1 Diagnoses Intractable abdominal pain R10.9
[2021-12-14] MEDS: ENOXAPARIN INJ 30 MG/0.3 ML SYR SQ SCH (20:11)
[2021-12-14] MEDS: oxyCODONE HCL IR 5 MG TAB (IMMEDIATE RELEASE) PO SCH (20:13)
[2021-12-15] MEDS: oxyCODONE HCL SOLN 5 MG/5 ML UDC PO PRN ×3 (00:20→15:50)
[2021-12-15] MEDS: CHECK fentaNYL PATCH PLACEMENT SCH ×4 (00:22→23:05)
--- NOTE | 2021-12-15 01:43 | Communication Note ---
Date of Service: December 15, 2021 Messaged about intractable abd pain despite current pain regimen; onset was in context of constipation/straining. Ordered KUB. Abd exam ttp to light palpation and w/ voluntary guarding, so ordered CT abd. ct abd statrad report consistent w/ large stool volume and impaction. Day hospitalist to follow. Lactate 3.1->2.7
[2021-12-15] MEDS ORDERED: ACETAMINOPHEN 10MG/ML Custom 1,000 MG in EMPTY BAG 0 ML IV STA (02:40)
[2021-12-15] MEDS ORDERED: ACETAMINOPHEN 1000 MG/100 ML IV IV STA (02:45)
[2021-12-15 03:52] LABS: Hematocrit (blood only) 25.4 % (40.1-51.0); Hemoglobin 8.5 g/dl (14.0-18.0); Immature Granulocytes # (auto) 0.08 K/uL (0.00-0.02); Immature Granulocytes % (auto) 0.7 %; Lymphocytes # (auto) 0.66 K/uL (1.2-3.4); Lymphocytes % (auto) 5.5 %; Mean Corpuscular Hemoglobin 28.1 pg (25.0-34.0); Mean Corpuscular Hgb Conc 33.5 g/dL (32.0-36.0); Mean Corpuscular Volume 83.8 fL (80.0-100.0); Mean Platelet Volume 10.1 fL (9.4-12.4); Monocytes # (auto) 0.63 K/uL (0.24-0.82); Monocytes % (auto) 5.3 %; Neutrophils # (auto) 10.53 K/uL (1.4-6.5); Neutrophils % (auto) 88.5 %; Platelet Count 249 K/uL (130-400); RDW Coefficient of Variation 18.2 % (11.5-14.5); RDW Standard Deviation 55.6 fL (36.4-46.3); Red Blood Count 3.03 M/uL (4.63-6.08)
[2021-12-15 04:15] LABS: Albumin Globulin Ratio 0.9 (0.9-2); Albumin Level 2.3 gm/dl (3.4-5.0); BUN Creatinine Ratio 26.8 (10-20); Bilirubin,Total 2.2 mg/dl (0.2-1.0); Calcium 8.2 mg/dl (8.5-10.1); Creatinine Clr Calc Pharmacy 45.1 ml/min; Est GFR (African American) 99.6 ml/min; Est GFR (Non-African American) 85.9 ml/min; Globulin 2.6 gm/dl (2.5-4.0); Potassium 4.3 mmol/L (3.5-5.1); Total Protein 4.9 gm/dl (6.0-8.3)
[2021-12-15] MEDS ORDERED: OPTIRAY 350 100ml IV ONE (06:11)
--- NOTE | 2021-12-15 07:45 | XRay Report ---
KUB HISTORY: Generalized abdominal pain. COMPARISON: Abdomen and pelvis CT 11/20/2021. FINDINGS: The bowel gas pattern is unremarkable. There are no dilated loops of small bowel to suggest an obstruction. No renal calculi. No ureteral calculi. No pneumoperitoneum or pneumatosis. Moderate to large amount of well-formed stool seen throughout the colon and rectum. There are surgical clips overlying the right hip. Prior cholecystectomy. Small bilateral pleural effusions. IMPRESSION: 1. No evidence for bowel obstruction. 2. Moderate to large amount of well-formed stool seen throughout the colon. ACT 112: Negative or not required by law. Electronically signed by: Rufus Wick M.D. 12/15/2021 7:44 AM
--- NOTE | 2021-12-15 08:27 | Hospitalist Progress Note ---
Date of Service December 15, 2021 Assessment & Plan (1) Intractable abdominal pain: Plan: This is a 76 y/o M with a history of COPD, DM, PAD s/p AKA on the right complicated by phantom pain, left renal mass, metastatic disease who presented to [facility] for evaluation of abdominal and bone-related pain likely from metastatic cancer of unknown primary (though pulmonary highly suspected). Appropriate pain management regiment established, patient now pending placement with fdc facility. 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 Oxycodone 7.5 mg Q4 PRN. - Regimen is overall successful when patient agrees to take medication, periods of uncontrolled pain have correlated with refusal of medication dosing - When patient receives medication as ordered he is restful and comfortable - Continue as planned with ongoing encouragement to take medications Constipation a/w Impaction - CT 12/15 indicating moderate to large amount of well-formed stool seen throughout the colon and rectum including a 7 cm rectal stool ball - Likely 2/2 ongoing use of narcotic pain medication and lack of compliance with Miralax - No evidence of acute abdomen, no rebound or guarding - Evidence of small, soft bowel movement prior to examination this morning - Increased scheduled frequency of Miralax offerings to TID as patient has been declining medication - Will anticipate need for digital disimpaction vs enema if symptoms persist and pt. continues to decline Miralax Delirium a/w Pain vs. Environment - No evidence of infectious or toxic origin, likely 2/2 pain a/w constipation, disease, and hospital environment - Suspect component of language barrier, mistrust of doctors, and hx of PTSD (per daughter) - Encouraging pain medication and stool softeners to mitigate patient's discomfort - Advised family of symptoms and etiology, recommended family visit to provide patient with element of normalcy - Recommend delirium precautions Metastatic Disease - Stable - Came to the hospital 11/20 for pain control - Patient experiencing weight loss, anorexia, and worsening pain over the last few months - Primary cancer unknown: In light of heavy tobacco use, pulmonary source is the most likely suspect - Patient is not interested in radiation or salvage chemotherapy, thus symptom control will be continued COPD - Secondary to prolonged and extensive tobacco use. - Continue home inhalers. PAD - Stable - Extensive. Status-post AKA of the RLE. - Continue ASA, atorvastatin Prediabetes - Review of records reveals prediabetes, A1c 6.2% in 06/2021 - Not on any medications Dysphagia - Daughter reporting patient has had significant difficulties with swallowing lately -- feels like food/pills are getting stuck; not as much with liquids - Encourage PO intake - boosts - Speech - [id number] with thin liquids, aspiration and GERD precautions. Hepatomegaly - Appreciated on exam, likely secondary to metastatic disease - Significant elevation in ALP (878, rising) with otherwise "normal" LFTs - ALP may be secondary to osseous mets - Avoid hepatotoxic medications - Received dexamethasone for liver capsule pain, stopped 12/13, can resume if needed Goals of Care Discussion - Daughter POA - wants to focus on comfort rather than aggressive treatment. Patient is DNR/DNI - CM following: currently lives alone and daughter would prefer he stay at home with hospice, but his needs are not able to be met at home. * Referral placed to SNF to possible short stay to increase strength. * [facility] referral out, [facility] without beds. - Palliative Care: daughter has discussed with him, patient prefers symptom management over full treatment of cancer Failure to Thrive - Significant weakness, anorexia, and fatigue reported by daughter over the last several weeks, in conjunction with pain. - Primarily suspect that this is due to his metastatic burden and pain - PT evaluation completed: unsafe to go home without 24/7 supervision - inpatient rehab recommended, however given home hospice situation, planning for SNF - Case management: awaiting availability at SNF Leukocytosis - No active signs/symptoms of infection. Noted upon admission. - Likely cancer and stress-related. - Leukocytosis present 12/15, but downtrending Plan Code: DNR/DNI Diet: Regular, easy to chew PPX: Lovenox 30 dispo: SNF when approved/bed available Admission and Anticipated Discharge Date Admission Date: November 27, 2021 Supervising Physician Co-Signing Physician Notes I personally examined the patient and verified all lemos points of history and exam, discussed case, and agree with decision making with Dr Pascual araiza abdominal pain - CT reviewed. sleeping comfortably when i see him. vitals noted mldly uncomfortable appearing heent nc at mmm breathing unlabored no accessory muscles good effort Intractable pain 2/2 metastatic disease - continue fentanyl patch for baseline control, oxycodone for breakthrough - titrate regimen when/as needed, overall pain control continues to appear reasonable at this time - sometimes needs reminders to take meds - after Dr Garner d/w family - IV ordered as well constipation - fecal retention - with otherwise reassurring findings no need for disimpaction at this time - increase miralax, follow otherwise as above, awaiting SNF once bed available Subjective This is a 76 y/o M with a history of COPD, DM, PAD s/p AKA on the right complicated by phantom pain, left renal mass, metastatic disease who presented to [facility] for evaluation of abdominal and bone-related pain likely from metastatic cancer of unknown primary (though pulmonary highly suspected). Appropriate pain management regiment established, patient now pending placement with fdc facility. 12/15/21 - [id number] [facility] evp chief exploration officer used - Transitioning from bedside toilet to bed upon arrival, resting comfortably following transfer - Patient declined to converse with physician or evp chief exploration officer - Nursing notes ongoing refusal of medications - No reasonable HPI or ROS obtained Review of Systems Review of Systems: - Per HPI Physical Exam Physical Exam: Gen: NAD, non-conversive Resp:Non-labored, appropriate respiratory effort, no accessory muscle use CV:RRR, normal S1/S2, no M/R/G Abd: Soft, non-distended, TTP present in RLQ, hepatomegaly, normoactive bowels, no guarding or rebound Extr: No edema Skin: No rashes lesions or erythema Neuro: No focal deficits at rest, absent RLE Anus: Patent, no evidence of erythema, fissure, or hemorrhoid externally Results & Data Results & Data ([facility]) Vital Signs (Past 12 Hours) Vital Signs Temp Pulse Resp BP BP Pulse Ox O2 Del Method 12/15/21 07:40 36.4 C L 75 16 120/67 94 Room Air 12/14/21 21:00 Room Air 12/14/21 20:48 36.7 C 85 16 105/65 95 Room Air Diagnostic Findings Laboratory Results WBC 11.90 K/ul (4.8-10.8) H 12/15/21 03:37 RBC 3.03 M/uL (4.63-6.08) L 12/15/21 03:37 Hgb 8.5 g/dl (14.0-18.0) L 12/15/21 03:37 Hct 25.4 % (40.1-51.0) L 12/15/21 03:37 MCV 83.8 fL (80.0-100.0) 12/15/21 03:37 MCH 28.1 pg (25.0-34.0) 12/15/21 03:37 MCHC 33.5 g/dL (32.0-36.0) 12/15/21 03:37 RDW Std Deviation 55.6 fL (36.4-46.3) H 12/15/21 03:37 RDW Coeff of Cee 18.2 % (11.5-14.5) H 12/15/21 03:37 Plt Count 249 K/uL (130-400) 12/15/21 03:37 MPV 10.1 fL (9.4-12.4) 12/15/21 03:37 Immature Gran % (Auto) 0.7 % 12/15/21 03:37 Neut % (Auto) 88.5 % 12/15/21 03:37 Lymph % (Auto) 5.5 % 12/15/21 03:37 [place] % (Auto) 5.3 % 12/15/21 03:37 Eos % (Auto) 0.0 % 12/15/21 03:37 Baso % (Auto) 0.0 % 12/15/21 03:37 Neut # (Auto) 10.53 K/uL (1.4-6.5) H 12/15/21 03:37 Lymph # (Auto) 0.66 K/uL (1.2-3.4) L 12/15/21 03:37 [place] # (Auto) 0.63 K/uL (0.24-0.82) 12/15/21 03:37 Eos # (Auto) 0.00 K/uL (0-0.50) 12/15/21 03:37 Baso # (Auto) 0.00 K/uL (0-0.2) 12/15/21 03:37 Immature Gran # (Auto) 0.08 K/uL (0.00-0.02) H 12/15/21 03:37 PT 12.1 Seconds (9.0-12.0) H 11/26/21 23:30 INR 1.1 (0.9-1.1) 11/26/21 23:30 APTT 29.5 Seconds (21.0-31.0) 11/26/21 23:30 PTT Ratio 1.1 11/26/21 23:30 Sodium 132 mmol/L (136-145) L 12/15/21 03:37 Potassium 4.3 mmol/L (3.5-5.1) 12/15/21 03:37 Chloride 101 mmol/L (98-107) 12/15/21 03:37 Carbon Dioxide 25 mmol/L (21-32) 12/15/21 03:37 Anion Gap 6 (3-11) 12/15/21 03:37 BUN 22 mg/dl (6-23) 12/15/21 03:37 Creatinine 0.82 mg/dl (0.6-1.4) 12/15/21 03:37 Est Cr Clr Drug Dosing 45.1 ml/min 12/15/21 03:37 Est GFR ( Amer) 99.6 ml/min 12/15/21 03:37 Est GFR (Non-Af Amer) 85.9 ml/min 12/15/21 03:37 BUN/Creatinine Ratio 26.8 (10-20) H 12/15/21 03:37 Glucose 138 mg/dl (70-99(Fasting)) H 12/15/21 03:37 Lactate 2.7 mmol/L (0.4-2.0) H* 12/15/21 05:37 Calcium 8.2 mg/dl (8.5-10.1) L 12/15/21 03:37 Total Bilirubin 2.2 mg/dl (0.2-1.0) H 12/15/21 03:37 Direct Bilirubin 0.9 mg/dl (0-0.2) H 12/15/21 05:33 AST 31 U/L (13-39) 12/15/21 03:37 ALT 38 U/L (7-52) 12/15/21 03:37 Alkaline Phosphatase 878 U/L (34-104) H 12/15/21 03:37 Total Protein 4.9 gm/dl (6.0-8.3) L 12/15/21 03:37 Albumin 2.3 gm/dl (3.4-5.0) L 12/15/21 03:37 Globulin 2.6 gm/dl (2.5-4.0) 12/15/21 03:37 Albumin/Globulin Ratio 0.9 (0.9-2) 12/15/21 03:37 Procalcitonin 0.85 ng/ml (0-0.5) H 11/26/21 23:30 TSH 1.829 uIu/ml (0.300-4.500) 11/26/21 23:30 Urine Color Yellow 11/27/21 01:01 Urine Appearance Clear (Clear) 11/27/21 01:01 Urine pH 5.5 (4.5-7.5) 11/27/21 01:01 Ur Specific [place] 1.022 (1.000-1.030) 11/27/21 01:01 Urine Protein Negative (Negative) 11/27/21 01:01 Urine Glucose (UA) Negative (Negative) 11/27/21 01:01 Urine Ketones Negative (Negative) 11/27/21 01:01 Urine Blood Negative (Negative) 11/27/21 01:01 Urine Nitrite Negative (Negative) 11/27/21 01:01 Urine Bilirubin Negative (Negative) 11/27/21 01:01 Urine Urobilinogen Negative (Negative) 11/27/21 01:01 Ur Leukocyte Esterase Negative (Negative) 11/27/21 01:01 SARS-CoV-2, RNA, NAAT NEGATIVE (NEGATIVE) 11/27/21 00:25 Impressions Chest X-Ray 11/26/21 23:17 IMPRESSION: 1. Emphysema. 2. No consolidation to suggest pneumonia. 3. Suspicious pulmonary nodules are better depicted on chest CT November 20, 2021. KUB X-Ray 12/15/21 00:53 IMPRESSION: 1. No evidence for bowel obstruction. 2. Moderate to large amount of well-formed stool seen throughout the colon. Abdomen/Pelvis CT 12/15/21 02:[address] WITH IV CONTRAST IMPRESSION: 1. Interval progression of the metastatic disease as described above. 2. Moderate to large amount of well-formed stool seen throughout the colon and rectum including a 7 cm rectal stool ball. 3. No definite bowel wall thickening or obstruction. 4. Normal appendix. 5. Increase in size in the small to moderate right and small left pleural effusions. 6. Lobular intermediate density lesion within the left kidney which may represent a hyperdense cyst. 7. Moderate body wall edema. Resident Activity Tracking Resident Involvement: Resident Care Provided Care Provided: Adult Hospital Medicine
[2021-12-15] MEDS: ATORVASTATIN 10 MG TAB PO SCH ×2 (08:47→12:49)
[2021-12-15] MEDS: PANTOprazole 40 MG TAB PO SCH ×4 (08:47→22:29)
[2021-12-15] MEDS: GABAPENTIN 100 MG CAP PO SCH ×5 (08:47→22:28)
[2021-12-15] MEDS: METOPROLOL TARTRATE 25 MG TAB PO SCH ×4 (08:47→22:29)
[2021-12-15] MEDS: DOCUSATE SODIUM/SENNA 50/8.6MG TAB PO SCH ×4 (08:47→22:28)
--- NOTE | 2021-12-15 08:47 | CT Scan Report ---
ABDOMEN AND PELVIS CT WITH IV CONTRAST CT DOSE: 278.54 mGy.cm HISTORY: diffuse abd pain TECHNIQUE: Multiaxial CT images of the abdomen and pelvis were performed following the use of intrave nous contrast. A dose lowering technique was utilized adhering to the principles of ALARA. COMPARISON STUDY: Abdomen and pelvis CTA 11/20/2021. FINDINGS: Increase in size in the small to moderate right and small left pleural effusions. The heart is normal in size. Right lower lobe linear densities favor compressive atelectasis from the pleural effusion. Emphysema again noted. No pneumoperitoneum. No pneumatosis. Heterogeneous appearance to the cortex of the left anterior sixth and seventh ribs was small adjacent soft tissue abnormalities. Thi s consistent with metastatic disease and has slightly progressed. Innumerable hypodense hepatic lesio ns again noted consistent with metastatic disease. These have also increased in size with the dominan t lesion now measuring 4.5 cm, previously measuring 3.1 cm. Bilateral adrenal gland nodules have incr eased in size. The spleen and pancreas are unremarkable. No hydronephrosis. Lobular left renal lesion again noted containing a component of intermediate density. This lesion measures 6.3 cm and is uncha nged in size. The main portal vein is patent. Extensive calcified plaque within the normal caliber ab dominal aorta. No retroperitoneal lymphadenopathy. The bladder is unremarkable. There is a large stoo l ball within the rectum measuring 7 cm. There is moderate body wall edema which has progressed. Ther e is associated presacral edema. Colonic diverticulosis. No evidence for acute diverticulitis. Modera te to large amount of well-formed stool seen throughout the majority the colon. Trace ascites is note d. No bowel wall thickening or obstruction. Normal appendix. There are a few additional scattered sof t tissue masses adjacent to the ribs consistent with metastatic disease. Multiple peripheral enhancin g soft tissue masses adjacent to the pelvic bones and proximal right femoral shaft resulting in subtl e permeative appearance to the adjacent bony structures. This has progressed in the interval. This is consistent with metastatic disease. 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 IMPRESSION: 1. Interval progression of the metastatic disease as described above. 2. Moderate to large amount of well-formed stool seen throughout the colon and rectum including a 7 c m rectal stool ball. 3. No definite bowel wall thickening or obstruction. 4. Normal appendix. 5. Increase in size in the small to moderate right and small left pleural effusions. 6. Lobular intermediate density lesion within the left kidney which may represent a hyperdense cyst. 7. Moderate body wall edema. ACT 112: Negative or not required by law. Electronically signed by: Rufus Wick M.D. 12/15/2021 8:45 AM
[2021-12-15] MEDS: DICLOFENAC SOD 1% GEL 100 GM TUBE EXT SCH ×4 (08:52→21:51)
[2021-12-15] MEDS: POLYETHYLENE (MIRALAX) 17 GM PACK PO SCH ×3 (08:54→21:52)
[2021-12-15] MEDS: FLUTICASONE FUROATE 100MCG 14 PUFFS/INHALER INH SCH ×2 (08:54→12:49)
[2021-12-15] MEDS: UMECLIDINIUM/VILANTEROL 62.5/25MCG 7 PUFFS/INHALER INH SCH ×2 (08:55→12:50)
[2021-12-15] MEDS: amLODIPine BESYLATE 5 MG TAB PO SCH ×2 (09:50→12:49)
[2021-12-15] MEDS: ASPIRIN 81 MG ECTAB PO SCH (12:47)
--- NOTE | 2021-12-15 17:28 | Billing Data ---
Date of Service December 15, 2021 Coding Level of Care Code 28915 Subseq Hosp Care Lvl 2
[2021-12-15] MEDS: ENOXAPARIN INJ 30 MG/0.3 ML SYR SQ SCH (21:52)
[2021-12-15] MEDS: HYDROmorphone INJ 0.5 MG/0.5 ML SYR IV PRN (21:59)
[2021-12-16] MEDS: HYDROmorphone INJ 0.5 MG/0.5 ML SYR IV PRN ×4 (06:18→20:43)
[2021-12-16 06:37] LABS: BUN Creatinine Ratio 26.9 (10-20); Calcium 8.1 mg/dl (8.5-10.1); Creatinine Clr Calc Pharmacy 31.1 ml/min; Est GFR (African American) 68.4 ml/min; Potassium 4.9 mmol/L (3.5-5.1)
--- NOTE | 2021-12-16 07:54 | Hospitalist Progress Note ---
Date of Service December 16, 2021 Assessment & Plan (1) Intractable abdominal pain: Plan: This is a 76 y/o M with a history of COPD, DM, PAD s/p AKA on the right complicated by phantom pain, left renal mass, metastatic disease who presented to [facility] for evaluation of abdominal and bone-related pain likely from metastatic cancer of unknown primary (though pulmonary highly suspected). Appropriate pain management regiment established, patient now pending placement with snf facility. 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 Oxycodone 7.5 mg Q4 PRN. Transitioned from Oxycodone PO to Dilaudid IV 0.5 mg Q4H 12/15 - Regimen is overall successful when patient agrees to take medication, periods of uncontrolled pain have correlated with refusal of medication dosing. - Improved pain control overnight with IV Dilaudid, patient able to rest comfortably and converse this morning - Continue as planned with ongoing encouragement to take medications ---Placement pending at snf Constipation a/w Impaction - CT 12/15 indicating moderate to large amount of well-formed stool seen throughout the colon and rectum including a 7 cm rectal stool ball - Likely 2/2 ongoing use of narcotic pain medication and lack of compliance with Miralax - No evidence of acute abdomen, no rebound or guarding - Nursing endorses multiple small formed bowel movements yesterday with transition to small liquid bowel movements this morning --- Continue TID Miralax at this time, will scale back if patient transitions to increased frequency of liquid stools or has large formed bowel movement --- Will anticipate need for digital disimpaction vs enema if symptoms escalate and pt. continues to decline Miralax Delirium a/w Pain vs. Environment - No evidence of infectious or toxic origin, likely 2/2 pain a/w constipation, disease, and hospital environment - Suspect component of language barrier, mistrust of doctors, and hx of PTSD (per daughter) - Encouraging pain medication and stool softeners to mitigate patient's discomfort - Advised family of symptoms and etiology, recommended family visit to provide patient with element of normalcy - Recommend delirium precautions Metastatic Disease - Stable - Came to the hospital 11/20 for pain control - Patient experiencing weight loss, anorexia, and worsening pain over the last few months - Primary cancer unknown: In light of heavy tobacco use, pulmonary source is the most likely suspect - Patient is not interested in radiation or salvage chemotherapy, thus symptom control will be continued COPD - Secondary to prolonged and extensive tobacco use. - Continue home inhalers. PAD - Stable - Extensive. Status-post AKA of the RLE. - Continue ASA, atorvastatin Prediabetes - Review of records reveals prediabetes, A1c 6.2% in 06/2021 - Not on any medications Dysphagia - Daughter reporting patient has had significant difficulties with swallowing lately -- feels like food/pills are getting stuck; not as much with liquids - Encourage PO intake - boosts - Speech - [id number] with thin liquids, aspiration and GERD precautions. Hepatomegaly - Appreciated on exam, likely secondary to metastatic disease - Significant elevation in ALP (878, rising) with otherwise "normal" LFTs - ALP may be secondary to osseous mets - Avoid hepatotoxic medications - Received dexamethasone for liver capsule pain, stopped 12/13, can resume if needed Goals of Care Discussion - Daughter POA - wants to focus on comfort rather than aggressive treatment. Patient is DNR/DNI - CM following: currently lives alone and daughter would prefer he stay at home with hospice, but his needs are not able to be met at home. * Referral placed to SNF to possible short stay to increase strength. * [facility] referral out, [facility] without beds. - Palliative Care: daughter has discussed with him, patient prefers symptom management over full treatment of cancer Failure to Thrive - Significant weakness, anorexia, and fatigue reported by daughter over the last several weeks, in conjunction with pain. - Primarily suspect that this is due to his metastatic burden and pain - PT evaluation completed: unsafe to go home without 24/ supervision - inpatient rehab recommended, however given home hospice situation, planning for SNF - Case management: awaiting availability at SNF Leukocytosis - No active signs/symptoms of infection. Noted upon admission. - Likely cancer and stress-related. - Leukocytosis present 12/15, but downtrending Plan Code: DNR/DNI Diet: Regular, easy to chew PPX: Lovenox 30 Dispo: SNF when approved/bed available Admission and Anticipated Discharge Date Admission Date: November 27, 2021 Supervising Physician Co-Signing Physician Notes I personally examined the patient and verified all lemos points of history and exam, discussed case, and agree with decision making with Dr Chacon sleeping when i see him - but more comfortable and having BMs according to d/w dr chacon. vitals noted sleeping comfortably again nad heent nc at mmm breathing unlabored no accessory muscles good effort Intractable pain 2/2 metastatic disease - continue fentanyl patch for baseline control, short acting narcotics for breakthrough - titrate regimen when/as needed constipation - fecal retention - continue miralax, moving bowels otherwise as above, awaiting SNF once bed available Subjective This is a 76 y/o M with a history of COPD, DM, PAD s/p AKA on the right complicated by phantom pain, left renal mass, metastatic disease who presented to [facility] for evaluation of abdominal and bone-related pain likely from metastatic cancer of unknown primary (though pulmonary highly suspected). Appropriate pain management regiment established, patient now pending placement with snf facility. 12/16/21 - [id number] [place] [employer] Researcher used - Patient resting comfortably upon arrival, nursing noted restful sleep overnight, nursing notes multiple small bowel movements throughout yesterday evening with transition to more liquid stools this morning, nursing believes his pain is better controlled with IV pain medication. - Able to converse with patient today via entry operator - Patient noted that he is overall feeling fine today and in less pain - He noted that his abdomen only hurts him at night - He believes he is moving his bowels well and is not having pain during bowel movements - Patient denied any chest pain, shortness of breath, fevers, or chills Review of Systems Review of Systems: - Per HPI Physical Exam Physical Exam: Gen: NAD, conversive, comfortable Resp:Non-labored, appropriate respiratory effort, no accessory muscle use CV:RRR, normal S1/S2, no M/R/G Abd: Soft, non-distended, TTP present in RLQ/LLQ, hepatomegaly, normoactive bowels, no guarding or rebound Neuro: No focal deficits, absent RLE Anus: Patent, no evidence of erythema, fissure, or hemorrhoid externally Results & Data Results & Data ([facility]) Vital Signs (Past 12 Hours) Vital Signs Temp Pulse Resp BP BP Pulse Ox O2 Del Method 12/16/21 07:18 36.4 C L 89 18 107/57 L 92 Room Air 10/15/22 21:03 Room Air 12/15/21 21:48 36.9 C 80 18 116/66 94 Room Air Resident Activity Tracking Resident Involvement: Resident Care Provided Care Provided: Adult Hospital Medicine
[2021-12-16] MEDS: CHECK fentaNYL PATCH PLACEMENT SCH ×3 (08:00→23:58)
[2021-12-16] MEDS: POLYETHYLENE (MIRALAX) 17 GM PACK PO SCH ×3 (12:17→20:46)
[2021-12-16] MEDS: DOCUSATE SODIUM/SENNA 50/8.6MG TAB PO SCH ×2 (12:17→20:46)
[2021-12-16] MEDS: PANTOprazole 40 MG TAB PO SCH ×2 (12:17→20:59)
[2021-12-16] MEDS: METOPROLOL TARTRATE 25 MG TAB PO SCH ×3 (12:17→20:49)
[2021-12-16] MEDS: GABAPENTIN 100 MG CAP PO SCH ×3 (12:17→20:58)
[2021-12-16] MEDS: UMECLIDINIUM/VILANTEROL 62.5/25MCG 7 PUFFS/INHALER INH SCH (12:22)
[2021-12-16] MEDS: FLUTICASONE FUROATE 100MCG 14 PUFFS/INHALER INH SCH (12:23)
[2021-12-16] MEDS: ASPIRIN 81 MG ECTAB PO SCH (12:57)
[2021-12-16] MEDS: ATORVASTATIN 10 MG TAB PO SCH (12:57)
[2021-12-16] MEDS: amLODIPine BESYLATE 5 MG TAB PO SCH (12:57)
[2021-12-16] MEDS: DICLOFENAC SOD 1% GEL 100 GM TUBE EXT SCH ×4 (13:21→20:45)
--- NOTE | 2021-12-16 15:54 | Billing Data ---
Date of Service December 16, 2021 Coding Level of Care Code 68056 Subseq Hosp Care Lvl 2
[2021-12-16] MEDS: ENOXAPARIN INJ 30 MG/0.3 ML SYR SQ SCH (20:58)
--- NOTE | 2021-12-16 23:36 | Communication Note ---
Date of Service: December 16, 2021 Messaged by nursing about desaturation to 86 on room air, refusing nasal cannula. On repeat, O2 sat was low 80s. cxr w/ RLL atelectasis. patient refused duoneb and albuterol MDI. holding prn dilaudid. sats improved to >90 for rest of night.
[2021-12-16] MEDS: ALBUT/IPRATROP 3MG/0.5MG NEB 3 ML VIAL NEB STA ×2 (23:40→23:46)
--- NOTE | 2021-12-17 06:48 | Hospitalist Progress Note ---
Date of Service December 17, 2021 Assessment & Plan (1) Intractable abdominal pain: Plan: This is a 76 y/o M with a history of COPD, DM, PAD s/p AKA on the right complicated by phantom pain, left renal mass, metastatic disease who presented to [facility] for evaluation of abdominal and bone-related pain likely from metastatic cancer of unknown primary (though pulmonary highly suspected). Appropriate pain management regiment established, patient now pending placement with [facility]. 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 Oxycodone 7.5 mg Q4 PRN. Transitioned from Oxycodone PO to Dilaudid IV 0.5 mg Q4H 12/15. Holding prn Dilaudid at this time due to hypoxia. - Regimen is overall successful when patient agrees to take medication, periods of uncontrolled pain have correlated with refusal of medication dosing. - Continue as planned with ongoing encouragement to take medications - Placement pending at [facility] Constipation a/w Impaction - CT 12/15 indicating moderate to large amount of well-formed stool seen throughout the colon and rectum including a 7 cm rectal stool ball - Likely 2/2 ongoing use of narcotic pain medication and lack of compliance with Miralax - No evidence of acute abdomen, no rebound or guarding - Digital disimpaction was performed on 12/16 and large amount of firm feces were removed - Nursing endorses multiple small formed bowel movements yesterday with transition to small liquid bowel movements this morning - d/c miralax. Hypoxia -Patient desaturated last night to 86% on room air, CXR with RLL atelectasis, patient refused duoneb and albuterol. -Most likely due chronic pain meds with underlying COPD causing atelectasis. Will hold prn Dilaudid at this time. -Was on 1L overnight. 96% on room air today. -Will start incentive spirometry Q1h on 12/17. Dysphagia Failure to Thrive - Significant weakness, anorexia, and fatigue reported by daughter over the last several weeks, in conjunction with pain. - Primarily suspect that this is due to his metastatic burden and pain - Daughter reporting patient has had significant difficulties with swallowing lately -- feels like food/pills are getting stuck; not as much with liquids - Encourage PO intake - boosts - Speech - [id number] with thin liquids, aspiration and GERD precautions. Delirium a/w Pain vs. Environment - No evidence of infectious or toxic origin, likely 2/2 pain a/w constipation, disease, and hospital environment - Suspect component of language barrier, mistrust of doctors, and hx of PTSD (per daughter) - Encouraging pain medication and stool softeners to mitigate patient's discomfort - Advised family of symptoms and etiology, recommended family visit to provide patient with element of normalcy - Recommend delirium precautions Metastatic Disease - Stable - Came to the hospital 11/20 for pain control - Patient experiencing weight loss, anorexia, and worsening pain over the last few months - Primary cancer unknown: In light of heavy tobacco use, pulmonary source is the most likely suspect - Patient is not interested in radiation or salvage chemotherapy, thus symptom control will be continued COPD - Secondary to prolonged and extensive tobacco use. - Continue home inhalers. PAD - Stable - Extensive. Status-post AKA of the RLE. - Continue ASA, atorvastatin Prediabetes - Review of records reveals prediabetes, A1c 6.2% in 06/2021 - Not on any medications Goals of Care Discussion - Daughter POA - wants to focus on comfort rather than aggressive treatment. Patient is DNR/DNI - CM following: currently lives alone and daughter would prefer he stay at home with hospice, but his needs are not able to be met at home. * Referral placed to SNF to possible short stay to increase strength. * [facility] referral out, [facility] without beds. - Palliative Care: daughter has discussed with him, patient prefers symptom management over full treatment of cancer Code: DNR/DNI Diet: Regular, easy to chew PPX: Lovenox 30 Dispo: SNF when approved/bed available; - PT evaluation completed: unsafe to go home without 24/7 supervision - inpatient rehab recommended, however given home hospice situation, planning for SNF Admission and Anticipated Discharge Date Admission Date: November 27, 2021 Supervising Physician Co-Signing Physician Notes Resident Physician Supervision Note: I independently interviewed and examined the patient and verified the lemos history and physical, reviewed labs and image studies and agree with resident findings and care plan. Subjective Patient was seen bedside this AM. Patient is more lethargic then normal though stable at this time. Attempted to talk with the patient via the linen sorter but patient did not seem interested in answering any questions. He has no questions or concerns at this time. Review of Systems Review of Systems: Unable to access due to patient compliance. Physical Exam Physical Exam: Constitutional: lethargic, sleeping HEENT: NCAT, no conjunctival injection CV: regular rhythm, no murmur appreciated, extremities well-perfused, no LE edema Resp: CTABL, no wheezes/rales/rhonchi appreciated, no increased work of breathing GI: soft, nondistended, nontender, BS normoactive MSK: no gross deformities appreciated Skin: warm, dry, no rash appreciated Results & Data Results & Data ([facility]) Vital Signs (Past 12 Hours) Vital Signs Temp Pulse Resp BP Pulse Ox O2 Del Method O2 Flow Rate 12/17/21 03:43 92 Room Air 12/16/21 20:21 Room Air 12/16/21 21:21 93 Nasal Cannula 1 12/16/21 21:19 36.2 C L 88 20 117/66 86 L Room Air Resident Activity Tracking Resident Involvement: Resident Care Provided Care Provided: Adult Hospital Medicine
[2021-12-17] MEDS: CHECK fentaNYL PATCH PLACEMENT SCH ×3 (09:00→23:33)
--- NOTE | 2021-12-17 09:02 | XRay Report ---
XR chest 1V portable HISTORY: 76 years-old Male hypoxia to 78-80 on room air acute hypoxia COMPARISON: CT abdomen and pelvis 12/15/2021, Chest radiograph 11/27/2021 TECHNIQUE: Portable AP view of the chest FINDINGS: Cardiomediastinal and hilar silhouettes are unchanged. Mild right hemidiaphragmatic elevation with ri ght basilar opacities. Small pleural effusions. No pneumothorax. Pulmonary emphysema. Degenerative ch anges of the shoulders and spine. Mild reticulonodular opacities of the upper lungs. Bony metastasis are better seen on the comparison CT studies. IMPRESSION: 1. Small pleural effusions with right basilar opacities suggestive of atelectasis versus pneumonia. 2. Mild reticular nodular opacities of the upper lungs. Follow-up recommended to exclude an infectiou s or inflammatory pneumonitis. Metastatic disease considered less likely. ACT 112: Negative or not required by law. The above report was generated using voice recognition software. It may contain grammatical, syntax o r spelling errors. Electronically signed by: Brett Borges M.D. 12/17/2021 9:01 AM
[2021-12-17] MEDS: DICLOFENAC SOD 1% GEL 100 GM TUBE EXT SCH ×4 (11:06→21:18)
[2021-12-17] MEDS: GABAPENTIN 100 MG CAP PO SCH ×3 (11:06→21:20)
[2021-12-17] MEDS: POLYETHYLENE (MIRALAX) 17 GM PACK PO SCH ×2 (11:07→15:12)
[2021-12-17] MEDS: ASPIRIN 81 MG ECTAB PO SCH (15:10)
[2021-12-17] MEDS: ATORVASTATIN 10 MG TAB PO SCH (15:10)
[2021-12-17] MEDS: amLODIPine BESYLATE 5 MG TAB PO SCH (15:10)
[2021-12-17] MEDS: METOPROLOL TARTRATE 25 MG TAB PO SCH ×2 (15:11→21:20)
[2021-12-17] MEDS: FLUTICASONE FUROATE 100MCG 14 PUFFS/INHALER INH SCH (15:11)
[2021-12-17] MEDS: UMECLIDINIUM/VILANTEROL 62.5/25MCG 7 PUFFS/INHALER INH SCH (15:11)
[2021-12-17] MEDS: PANTOprazole 40 MG TAB PO SCH ×2 (15:11→21:20)
[2021-12-17] MEDS: DOCUSATE SODIUM/SENNA 50/8.6MG TAB PO SCH ×2 (15:11→21:17)
[2021-12-17] MEDS: ACETAMINOPHEN 65 ML IV PRN (15:34)
[2021-12-17 19:25] LABS: Hematocrit (blood only) 28.1 % (40.1-51.0); Hemoglobin 9.1 g/dl (14.0-18.0)
[2021-12-17] MEDS: ENOXAPARIN INJ 30 MG/0.3 ML SYR SQ SCH (21:20)
[2021-12-18] MEDS ORDERED: HYDROmorphone INJ 0.5 MG/0.5 ML SYR IV STA ×2 (00:15→03:17)
[2021-12-18] MEDS: ACETAMINOPHEN 65 ML IV PRN (06:40)
--- NOTE | 2021-12-18 07:33 | Hospitalist Progress Note ---
Date of Service December 18, 2021 Assessment & Plan (1) Intractable abdominal pain: Plan: XXXX Prelim note XXX This is a 76 y/o M with a history of COPD, DM, PAD s/p AKA on the right complicated by phantom pain, left renal mass, metastatic disease who presented to [facility] for evaluation of abdominal and bone-related pain likely from metastatic cancer of unknown primary (though pulmonary highly suspected). Appropriate pain management regiment established, patient now pending placement with alf facility. 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 Oxycodone 7.5 mg Q4 PRN. Transitioned from Oxycodone PO to Dilaudid IV 0.5 mg Q4H 12/15. Holding prn Dilaudid at this time due to hypoxia. - Regimen is overall successful when patient agrees to take medication, periods of uncontrolled pain have correlated with refusal of medication dosing. - Continue as planned with ongoing encouragement to take medications - Placement pending at alf Constipation a/w Impaction - CT 12/15 indicating moderate to large amount of well-formed stool seen throughout the colon and rectum including a 7 cm rectal stool ball - Likely 2/2 ongoing use of narcotic pain medication and lack of compliance with Miralax - No evidence of acute abdomen, no rebound or guarding - Digital disimpaction was performed on 12/16 and large amount of firm feces were removed - Nursing endorses multiple small formed bowel movements yesterday with transition to small liquid bowel movements this morning - d/c miralax. Hypoxia -Patient desaturated last night to 86% on room air, CXR with RLL atelectasis, patient refused duoneb and albuterol. -Most likely due chronic pain meds with underlying COPD causing atelectasis. Will hold prn Dilaudid at this time. -Was on 1L overnight. 96% on room air today. -Will start incentive spirometry Q1h on 12/17. Dysphagia Failure to Thrive - Significant weakness, anorexia, and fatigue reported by daughter over the last several weeks, in conjunction with pain. - Primarily suspect that this is due to his metastatic burden and pain - Daughter reporting patient has had significant difficulties with swallowing lately -- feels like food/pills are getting stuck; not as much with liquids - Encourage PO intake - boosts - Speech - [id number] with thin liquids, aspiration and GERD precautions. Delirium a/w Pain vs. Environment - No evidence of infectious or toxic origin, likely 2/2 pain a/w constipation, disease, and hospital environment - Suspect component of language barrier, mistrust of doctors, and hx of PTSD (per daughter) - Encouraging pain medication and stool softeners to mitigate patient's discomfort - Advised family of symptoms and etiology, recommended family visit to provide patient with element of normalcy - Recommend delirium precautions Metastatic Disease - Stable - Came to the hospital 11/20 for pain control - Patient experiencing weight loss, anorexia, and worsening pain over the last few months - Primary cancer unknown: In light of heavy tobacco use, pulmonary source is the most likely suspect - Patient is not interested in radiation or salvage chemotherapy, thus symptom control will be continued COPD - Secondary to prolonged and extensive tobacco use. - Continue home inhalers. PAD - Stable - Extensive. Status-post AKA of the RLE. - Continue ASA, atorvastatin Prediabetes - Review of records reveals prediabetes, A1c 6.2% in 06/2021 - Not on any medications Goals of Care Discussion - Daughter POA - wants to focus on comfort rather than aggressive treatment. Patient is DNR/DNI - CM following: currently lives alone and daughter would prefer he stay at home with hospice, but his needs are not able to be met at home. * Referral placed to SNF to possible short stay to increase strength. * [facility] referral out, [facility] without beds. - Palliative Care: daughter has discussed with him, patient prefers symptom management over full treatment of cancer Code: DNR/DNI Diet: Regular, easy to chew PPX: Lovenox 30 Dispo: SNF when approved/bed available; - PT evaluation completed: unsafe to go home without 24/7 supervision - inpatient rehab recommended, however given home hospice situation, planning for SNF Admission and Anticipated Discharge Date Admission Date: November 27, 2021 Results & Data Results & Data ([facility]) Vital Signs (Past 12 Hours) Vital Signs Temp Pulse Resp BP Pulse Ox O2 Del Method 12/18/21 07:31 98 H 25 H 100/55 L 12/17/21 20:25 Room Air 12/17/21 21:15 36.2 C L 83 16 105/57 L 98 Room Air
[2021-12-18 08:01] LABS: Hematocrit (blood only) 26.7 % (40.1-51.0); Hemoglobin 8.6 g/dl (14.0-18.0); Mean Corpuscular Hemoglobin 27.9 pg (25.0-34.0); Mean Corpuscular Hgb Conc 32.2 g/dL (32.0-36.0); Mean Corpuscular Volume 86.7 fL (80.0-100.0); Mean Platelet Volume 10.2 fL (9.4-12.4); Nucleated RBC # (auto) 0.04 K/uL (0-0); Nucleated RBC % (auto) 0.2 %; Platelet Count 255 K/uL (130-400); RDW Coefficient of Variation 19.7 % (11.5-14.5); RDW Standard Deviation 61.3 fL (36.4-46.3); Red Blood Count 3.08 M/uL (4.63-6.08); White Blood Count 16.18 K/ul (4.8-10.8)
--- NOTE | 2021-12-18 08:17 | XRay Report ---
XR chest 1V portable HISTORY: 76 years-old Male noisy breathing acute shortness of breath COMPARISON: Chest radiograph 12/16/2021 TECHNIQUE: Semiupright AP view of the chest FINDINGS: Cardiomediastinal and hilar silhouettes are unchanged. No pneumothorax. Mild right hemidiaphragmatic elevation. Small pleural effusions with right basilar opacities redemonstrated. Mildly improved aerat ion of the right lung base. There are new mild ill-defined left infrahilar densities. Reticular nodul ar opacities of the upper lungs. Bones appear grossly intact. IMPRESSION: 1. Small pleural effusions with mildly improved right basilar opacities. 2. There are new ill-defined left perihilar/infrahilar densities which may represent pneumonia. 3. Subtle reticular nodular densities of the upper lung zones redemonstrated. ACT 112: Negative or not required by law. The above report was generated using voice recognition software. It may contain grammatical, syntax o r spelling errors. Electronically signed by: Brett Borges M.D. 12/18/2021 8:16 AM
[2021-12-18 08:28] LABS: Basophils # (auto) 0.04 K/uL (0-0.2); Basophils % (auto) 0.2 %; Dohle Bodies 1+; Echinocytes 2+; Immature Granulocytes # (auto) 0.08 K/uL (0.00-0.02); Immature Granulocytes % (auto) 0.5 %; Lymphocytes # (auto) 0.31 K/uL (1.2-3.4); Lymphocytes % (auto) 1.9 %; Monocytes # (auto) 1.06 K/uL (0.24-0.82); Monocytes % (auto) 6.6 %; Neutrophils # (auto) 14.69 K/uL (1.4-6.5); Neutrophils % (auto) 90.8 %
[2021-12-18 08:34] LABS: BUN Creatinine Ratio 38.9 (10-20); Calcium 7.3 mg/dl (8.5-10.1); Creatinine Clr Calc Pharmacy 22.1 ml/min; Est GFR (African American) 45.4 ml/min; Est GFR (Non-African American) 39.2 ml/min; Potassium 5.9 mmol/L (3.5-5.1)
[2021-12-18] MEDS: CHECK fentaNYL PATCH PLACEMENT SCH (08:55)
[2021-12-18] MEDS ORDERED: ONDANSETRON 4 MG OD TAB SL PRN (09:52)
[2021-12-18] MEDS ORDERED: LORazepam 0.5 MG in SYRINGE 0 ML IV PRN (09:52)
[2021-12-18] MEDS ORDERED: GLYCOPYRROLATE 0.2 MG/ML VIAL IV PRN (09:52)
[2021-12-18] MEDS ORDERED: LORazepam 0.5 MG TAB PO PRN (09:52)
[2021-12-18] MEDS ORDERED: HYDROmorphone INJ 0.5 MG/0.5 ML SYR IV PRN (09:52)
[2021-12-18] MEDS ORDERED: ACETAMINOPHEN 325 MG TAB PO PRN (09:52)
[2021-12-18] MEDS ORDERED: ONDANSETRON INJ 2 MG/ML 2 ML VIAL IV PRN (09:52)
[2021-12-18] MEDS: ATORVASTATIN 10 MG TAB PO SCH (10:06)
[2021-12-18] MEDS: GABAPENTIN 100 MG CAP PO SCH (10:06)
[2021-12-18] MEDS: DICLOFENAC SOD 1% GEL 100 GM TUBE EXT SCH ×2 (10:06→12:56)
[2021-12-18] MEDS: amLODIPine BESYLATE 5 MG TAB PO SCH (10:06)
[2021-12-18] MEDS: DOCUSATE SODIUM/SENNA 50/8.6MG TAB PO SCH (10:06)
[2021-12-18] MEDS: ASPIRIN 81 MG ECTAB PO SCH (10:06)
[2021-12-18] MEDS: FLUTICASONE FUROATE 100MCG 14 PUFFS/INHALER INH SCH (10:07)
[2021-12-18] MEDS: PANTOprazole 40 MG TAB PO SCH (10:07)
[2021-12-18] MEDS: METOPROLOL TARTRATE 25 MG TAB PO SCH (10:07)
[2021-12-18] MEDS: UMECLIDINIUM/VILANTEROL 62.5/25MCG 7 PUFFS/INHALER INH SCH (10:07)
--- NOTE | 2021-12-18 11:42 | Death Pronouncement Note ---
Date of Service December 18, 2021 Pronouncement Note Admission Date November 27, 2021 Date and Time of Date of : 12/18/21 Time of : 11:29 Summary Called to bedside as patient had ceased breathing about 2 hours after transitioning to comfort measures. He was evaluated by myself and PGY-1 Dr. Deluca. Found to have no pulse, no respirations, no heart sound, and pupils were fixed and dilated. Patient's daughter at bedside and updated of situation. Time of 11:29AM. Additional Data Confirmation of : no pulse, no respirations, no heart sounds and pupils fixed and dilated Pronouncement Performed By: Resident Physician Family: at bedside Attending/PCP notified?: Yes Attending physician: Anjali Pickard MD Was code activated?: No Resident Activity Tracking Resident Involvement: Resident Care Provided Care Provided: Adult Hospital Medicine
--- NOTE | 2021-12-18 12:09 | Discharge Summary ---
Date of Service December 18, 2021 Admission HPI Per Admitting Provider This is a 76-year-old gentleman with a history of COPD, diabetes, peripheral arterial disease s/p AKA on the RIGHT complicated by phantom pain, left renal mass, metastatic disease who presented to [facility] for evaluation of abdominal and bone pain. He is accompanied by his daughter, who is also his photographic equipment assembler and POA. He speaks [place] and has limited [place] proficiency. Daughter provides the majority of the history. She says over the last several weeks, he has had increasingly disabling pain throughout his body. When asked directly, he locates it in his neck, back, chest wall, belly (right upper quadrant), left lower ankle, and at his previous right lower extremity amputation site. The overall pain has become disabling enough where he is unable to sleep, it is interrupting his eating patterns, and overall quality of life. His daughter notes that none of this pain is acute/newrather worsening chronic. She also reports that he has been having increasing difficulty swallowing and that things will sometimes get stuck. Of note, patient recently was in the ER on 11/20 - he was reported to have not been taking any of his medications x 1 week and was also having increased back pain and phantom leg pain, plus nausea and slurred speech and anorexia; he was reportedly taking more of his [place] than regular, too. He had full body imaging at this time, whichon abdominal pelvis CTAdemonstrated interval development of multiple hypodense lesions within the liver consistent with metastatic disease, possible early metastatic changes within the sixth and seventh ribs, 6.3 lobular hypodense lesion in the upper pole of the kidney thought to be a cyst; CTA of the chest demonstrated increase in size of pulmonary nodule within the left upper lobe, alongside multiple irregular pulmonary nodules. His daughter explained to me that in their [place] culture, it is generally not tradition to share the information of a debilitating disease (such as metastatic cancer) to the person suffering. In this case, while the patient is aware that his overall physical status is deteriorating, discussion revealed that he had not formally been informed of the extent of his metastatic cancer (or that he had cancer in general). She does state that he repeatedly says that he does not want to be in pain and does not want to suffer. She reports that he does have capacity and understands his overall health. She does report that they have had discussions in the past and that he wants to be a DNR/DNI in a situation that ultimately results in his expiration. However, they have not formally had discussions about how to approach the current situation with his metastatic disease and worsening overall healthshe wishes to arrange hospice on discharge, but patient has not formally been introduced to this idea. She thinks this is what he would want. Unfortunately, patient's (daughter's mother) recently from cancer approximately 1 year ago; she reports that he was in denial up until shortly before her passing, and that he definitely does not want to go through something similar. She hopes that through this hospitalization, they get the resources they need to be at home and have him free of pain. Patient is a past [place] of [place] and staying at institutions like hospitals, SNFs, etc. trigger PTSD-related moods/thoughts and are very distressful to him. Medications reviewed and include albuterol, amlodipine, aspirin, atorvastatin, calcium, vitamin B12, Voltaren gel, esomeprazole, Trelegy, gabapentin, [place], magnesium oxide, metoprolol tartrate, ondansetron, oxycodone. He has an extensive smoking history, beginning at age 8 and smoking over 1 pack/day. In the ED, patient was found to be afebrile with blood pressure 102/57 but otherwise normal vital signs. Admission labs demonstrates leukocytosis to 15.3 with a left shift and with monocytosis/lymphopenia, normocytic anemia 9.6 (compared to 10.3 on 11/20 and 13 on 06/18). Chemistries revealed mild hyponatremia at 135, BUN 42/creatinine 1.03, ALP 735 (from 586 on 11/20), normal TSH. He received Dilaudid and Zofran Admission Exam Per Admitting Provider General: 76-year old male who is alert, oriented; appears cachectic and chronically ill HEENT: NCAT. - Eyes - Sclera are white, anicteric, and without injection. - Mouth - dry mucous membranes - Neck - supple, no appreciable JVD Cardiac: Normal rate and regular rhythm; S1 and S2 present with no murmurs, rubs, or gallops. Pulmonary: Good respiratory effort with symmetric expansion of the chest. No use of accessory muscles. Lungs were clear to auscultation bilaterally with no crackles or wheezes. Abdominal: Normoactive bowel sounds. Abdomen was soft, nondistended; appreciable hepatomegaly associated with +TTP. Extremities: Upper and lower extremities are warm and well perfused. R-sided AKA stump appreciated - exquisitely tender to palpation (patient asked that I do not uncover or examine). No peripheral edema in the lower extremities bilaterally. LLE strength 5/5. Psych: Well-developed, well-nourished, appropriately dressed for occasion. Behavior is cooperative and appropriate. Affect is WNL. Insight is appropriate. Principal Diagnosis Respiratory Failure Discharge Exam Called to see patient for unresponsiveness. On exam the patient did not respond to verbal or physical stimuli. Absent heart and breath sounds. Absent peripheral pulses. Pupils are fixed and dilated. Patient pronounced at 11:29. Dr. Pickard notified. Daughter beside and was notified of . Discharge Data Allergies Allergy/AdvReac Type Severity Reaction Status Date / Time egg Allergy HARD TO Verified 11/27/21 02:50 BREATH honey Allergy Verified 11/27/21 10:13 nut - unspecified Allergy Verified 11/27/21 10:13 influenza virus vaccine, AdvReac Blurry Verified 10/31/21 12:48 specific vision lactose AdvReac Verified 11/27/21 16:19 Consultations 11/27/21 00:50 ED Decision to Admit Stat 11/27/21 02:16 Consult Palliative Care Routine Ordered Studies 12/15/21 02:40 CT Abd and Pelvis [CT abd pelvis IV con only] Urgent Hospital Course (1) Respiratory failure: (2) determined by examination: (3) Diabetes: (4) Multiple pulmonary nodules: (5) Metastatic disease: (6) Intractable abdominal pain: Plan This is a 76-year-old gentleman with a history of COPD, diabetes, peripheral arterial disease s/p AKA on the right complicated by phantom pain, left renal mass, metastatic disease who presented to [facility] for evaluation of abdominal and bone-related pain likely from metastatic cancer of unknown primary (though pulmonary highly suspected). due to respiratory failure related to metastatic cancer and COPD. Respiratory failure - 12/18 patient developed worsening respiratory failure in the setting of metastatic cancer of unknown primary origin and COPD - Initially elected to pursue all treatment except intubation so patient had been advanced to BiPAP -- his oxygenation did improve but he remianed very uncomfortable and transiently required restraints to prevent removal - Discussions held with patient's daughter at bedside, who discussed goals of care with patient as well and they elected to pursue comfort measures - He was transitioned to CONE CHOCOLATE DIPPER with PRN hydromorphone - He due to respiratory failure a few hours after initiation of CONE CHOCOLATE DIPPER -- pronounced at bedside and daughter updated at that moment Intractable Pain Likely related to metastatic disease in the liver and ribs. Home regimen: oxycodone 7.5mg q8h PRN (though daughter reports he has trouble taking this because of his dysphagia) Pain Regimen: Diclofenac 2 gm QID, Fentanyl transdermal patch 25 mcg TID. Oxycodone 7.5 mg Q4 PRN. Oxycodone 5 mg HS KEYLA. Gabapentin 200 mg TID. Dilaudid 0.25 mg IV for breakthrough pain. Miralax for opioid induced constipation. Increased PPI to pantoprazole 40 mg BID. Metastatic Disease Primary cancer unknown. In light of heavy tobacco use lung is the most likely suspect. Patient experiencing weight loss, anorexia, and worsening pain over the last few months. He came to the hospital 11/20 for pain control. Patient not interested in radiation or salvage chemotherapy option CT-A/P demonstrated interval development of multiple hypodense lesions within the liver consistent with metastatic disease, possible early metastatic changes within the sixth and seventh ribs, 6.3 lobular hypodense lesion in the upper pole of the kidney thought to be a cyst; CTA of the chest demonstrated increase in size of pulmonary nodule within the left upper lobe, alongside multiple irregular pulmonary nodules. COPD Secondary to prolonged and extensive tobacco use. Continue home inhalers. Satting well on room air PAD Extensive. Status-post AKA of the RLE. Continued ASA, atorvastatin Prediabetes/?History of Diabetes Review of records reveals prediabetes, A1c 6.2% in 06/2021, not on any meds Dysphagia Daughter reporting patient has had significant difficulties with swallowing -- felt like food/pills are getting stuck; not as much with liquids. Attempted encouraging PO intake - boosts. Speech - [id number] with thin liquids, aspiration and GERD precautions. Hepatomegaly Appreciated on exam, likely secondary to metastatic disease. Significant elevation in ALP with otherwise "normal" LFTs -- ALP may be secondary to osseous mets. Avoid hepatotoxic medications. CT-A/P: "Interval development of multiple hypodense lesions seen throughout the liver with the largest in the left hepatic lobe measuring 3.7 cm. This is consistent with metastatic disease." - in comparison to CT Chest 08/29 Coag studies: PT: 12.1, INR: 1.1, aPTT: 29.5 Goals of Care Discussion Daughter states that in [place] culture, some people prefer not to be told about their severe illness and have it managed by others. Daughter also told me she did end up sharing the results with him. Daughter is the POA. She wants to focus on comfort rather than aggressive treatment. He is a confirmed DNR/DNI. See 12/18 update above Failure to Thrive Significant weakness, anorexia, and fatigue reported by daughter over the last several weeks, in conjunction with pain. Primarily suspect that this is due to his metastatic burden and pain Leukocytosis WBC 15 on arrival (16.79 12/05) predominantly with left shift -- neutrophilia but also monocytosis with relative lymphopenia. Etiology unclear: cancer vs stress response vs viral infection vs bacteremia. UA clean. Blood culture NGTD x48. Could consider broad spectrum abx if patient starts to fever or develop hemodynamic instability. Total Time Total Time Spent Total Time Spent (In Minutes): 30 Total Time Includes: Examination of the Patient, Discharge Planning and Other Discharge Plan Discharge Items Patient Disposition: Discharge Diagnosis: Intractable pain Addtl Attending Provider Instructions: This is a 76-year-old gentleman with a history of COPD, diabetes, peripheral arterial disease s/p AKA on the right complicated by phantom pain, left renal mass, metastatic disease who presented to [facility] for evaluation of abdominal and bone-related pain likely from metastatic cancer of unknown primary (though pulmonary highly suspected). due to r espiratory failure related to metastatic cancer and COPD. Respiratory failure - 12/18 patient developed worsening respiratory failure in the setting of metastatic cancer of unknown primary origin and COPD - Initially elected to pursue all treatment except intubation so patient had been advanced to BiPAP -- his oxygenation did improve but he remianed very uncomfortable and transiently required restraints to prevent removal - Discussions held with patient's daughter at bedside, who discussed goals of care with patient as well and they elected to pursue comfort measures - He was transitioned to CONE CHOCOLATE DIPPER with PRN hydromorphone - He due to respiratory failure a few hours after initiation of CONE CHOCOLATE DIPPER -- pronounced at bedside and daughter updated at that moment Intractable Pain Likely related to metastatic disease in the liver and ribs. Home regimen: oxycodone 7.5mg q8h PRN (though daughter reports he has trouble taking this because of his dysphagia) Pain Regimen: Diclofenac 2 gm QID, Fentanyl transdermal patch 25 mcg TID. Oxycodone 7.5 mg Q4 PRN. Oxycodone 5 mg HS KEYLA. Gabapentin 200 mg TID. Dilaudid 0.25 mg IV for breakthrough pain. Miralax for opioid induced constipation. Increased PPI to pantoprazole 40 mg BID. Metastatic Disease Primary cancer unknown. In light of heavy tobacco use lung is the most likely suspect. Patient experiencing weight loss, anorexia, and worsening pain over the last few months. He came to the hospital 11/20 for pain control. Patient not interested in radiation or salvage chemotherapy option CT-A/P demonstrated interval development of multiple hypodense lesions within the liver consistent with metastatic disease, possible early metastatic changes within the sixth and seventh ribs, 6.3 lobular hypodense lesion in the upper pole of the kidney thought to be a cyst; CTA of the chest demonstrated increase in size of pulmonary nodule within the left upper lobe, alongside multiple irregular pulmonary nodules. COPD Secondary to prolonged and extensive tobacco use. Continue home inhalers. Satting well on room air PAD Extensive. Status-post AKA of the RLE. Continued ASA, atorvastatin Prediabetes/?History of Diabetes Review of records reveals prediabetes, A1c 6.2% in 06/2021, not on any meds Dysphagia Daughter reporting patient has had significant difficulties with swallowing -- felt like food/pills are getting stuck; not as much with liquids. Attempted encouraging PO intake - boosts. Speech - [id number] with thin liquids, aspiration and GERD precautions. Hepatomegaly Appreciated on exam, likely secondary to metastatic disease. Significant elevation in ALP with otherwise "normal" LFTs -- ALP may be secondary to osseous mets. Avoid hepatotoxic medications. CT-A/P: "Interval development of multiple hypodense lesions seen throughout the liver with the largest in the left hepatic lobe measuring 3.7 cm. This is consistent with metastatic disease." - in comparison to CT Chest 08/29 Coag studies: PT: 12.1, INR: 1.1, aPTT: 29.5 Goals of Care Discussion Daughter states that in [place] culture, some people prefer not to be told about their severe illness and have it managed by others. Daughter also told me she did end up sharing the results with him. Daughter is the POA. She wants to focus on comfort rather than aggressive treatment. He is a confirmed DNR/DNI. See 12/18 update above Failure to Thrive Significant weakness, anorexia, and fatigue reported by daughter over the last several weeks, in conjunction with pain. Primarily suspect that this is due to his metastatic burden and pain Leukocytosis WBC 15 on arrival (16.79 12/05) predominantly with left shift -- neutrophilia but also monocytosis with relative lymphopenia. Etiology unclear: cancer vs stress response vs viral infection vs bacteremia. UA clean. Blood culture NGTD x48. Could consider broad spectrum abx if patient starts to fever or develop hemodynamic instability. Other Date/Time: 12/18/21 11:29 Supervising Physician Co-Signing Physician Notes Resident Physician Supervision Note: I independently interviewed and examined the patient and verified the lemos history and physical, reviewed labs and image studies and agree with resident findings and care plan. Received sign out in the morning about patient complaining of increasing pain. Attended at bedside - Patient became hypoxic down into 70s. BP/pulse stable Restless in bed. Lungs - coarse sounds + heart - regular. Reviewed labs and CXR from am. Acute hypoxic respiratory failure sec to metastatic ds patient placed on bipap. Patient agitated on bipap and constantly pulling the mask. Soft restraints were ordered. Daughter was called. Discussion with daughter about goal of care. Considering poor prognosis in the setting of metastatic ds - decision was made to transition to comfort care. Eileen byrnes soon after. Total critical care time spent 35 min
== END 2021-12-18 14:00 | disposition expired | DRG 947 ==
LOC: ED 20:38 → 3N 11-27 02:11 → SUATTDRO 11-27 02:11 → 3N 11-27 03:25
DX: Z51.5 Encounter for palliative care; R62.7 Adult failure to thrive; Z66 Do not resuscitate; T47.3X6A Underdosing of saline and osmotic laxatives, initial encounter; Z88.7 Allergy status to serum and vaccine; J96.01 Acute respiratory failure with hypoxia; K56.41 Fecal impaction; R41.0 Disorientation, unspecified; D72.829 Elevated white blood cell count, unspecified; C78.7 Secondary malignant neoplasm of liver and intrahepatic bile duct; C79.51 Secondary malignant neoplasm of bone; K59.03 Drug induced constipation; R13.10 Dysphagia, unspecified; Z79.899 Other long term (current) drug therapy; J43.9 Emphysema, unspecified; K21.9 Gastro-esophageal reflux disease without esophagitis; Z82.5 Family history of asthma and other chronic lower respiratory diseases; Z80.0 Family history of malignant neoplasm of digestive organs; Z79.82 Long term (current) use of aspirin; F17.210 Nicotine dependence, cigarettes, uncomplicated; G54.6 Phantom limb syndrome with pain; Z89.611 Acquired absence of right leg above knee; Z91.012 Allergy to eggs; Z68.1 Body mass index [BMI] 19.9 or less, adult; G89.3 Neoplasm related pain (acute) (chronic); Z91.018 Allergy to other foods; E43 Unspecified severe protein-calorie malnutrition; R73.03 Prediabetes; Z79.51 Long term (current) use of inhaled steroids; I73.9 Peripheral vascular disease, unspecified; T40.605A Adverse effect of unspecified narcotics, initial encounter; Z79.891 Long term (current) use of opiate analgesic